=== PATIENT | female | born 1990 | race American Indian/Alaskan Native ===

== ENCOUNTER 2016-08-25 21:29 | Emergency (ER) | payer MEDICAID ==
[2016-08-25 22:06] VITALS: BP 109/91
[2016-08-25] MEDS ORDERED: methylPREDNISolone Sodium Succinate 125 MG/2 ML SDV IVPUSH ONE (22:12)
[2016-08-25] MEDS ORDERED: EPINEPHrine 1 MG/ML SDV SUBCUT ONE (22:14)
[2016-08-25] MEDS ORDERED: diphenhydrAMINE 50 MG/ML SDV IVPUSH ONE (22:15)
[2016-08-25] MEDS ORDERED: diphenhydrAMINE 25 MG Tab ONE (23:31)
[2016-08-25] MEDS ORDERED: predniSONE 20 MG Tab PO ONE (23:31)
[2016-08-25] MEDS ORDERED: predniSONE 20 MG Tab ONE (23:31)
[2016-08-25] MEDS ORDERED: diphenhydrAMINE 25 MG Tab PO ONE (23:31)
--- NOTE | 2016-08-25 23:36 | EDM.PDOC ---
ED HPI GENERAL MEDICAL PROBLEM - General Chief Complaint: Allergic Reaction Stated Complaint: BIT AND ALLEGIC REACTION, [id number] Time Seen by Provider: 08/25/16 22:05 Source of Information: Reports: Patient History Limitations: Reports: No Limitations - History of Present Illness INITIAL COMMENTS - FREE TEXT/NARRATIVE: c/o allergic reaction after [place] by [place] in [place], statedstarted with large hive to back of thigh, now itching all over, hands and face feel numb throat tight. 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 Neurological History: Reports: Migraines Psychiatric History: Reports: Depression Endocrine/Metabolic History: Reports: Other (See Below) Other Endocrine/Metabolic History: impaired glucose tolerance test Hematologic History: Reports: Anemia - Infectious Disease History Infectious Disease History: Reports: Chicken Pox - Past Surgical History GI Surgical History: Reports: Cholecystectomy Female Surgical History: Reports: Section, Tubal Ligation Social & Family History - Family History Family Medical History: Noncontributory Cardiac: Reports: Hypertension Neurological: Reports: Migraines Endocrine/Metabolic: Reports: Diabetes, type II - Tobacco Use Smoking Status *Q: Current Every Day Smoker Years of Tobacco use: 10 Packs/Tins Daily: 10 Used Tobacco, but Quit: No Second Hand Smoke Exposure: Yes - Caffeine Use Caffeine Use: Reports: Soda, Tea - Alcohol Use Days Per Week of Alcohol Use: 0 - Recreational Drug Use Recreational Drug Use: No - Living Situation & Occupation Living situation: Reports: with Significant Other, with Family Occupation: Unemployed ED ROS ALLERGIC REACTION - Review of Systems Review Of Systems: See Below HEENT: Reports: No Symptoms Respiratory: Reports: No Symptoms GI/Abdominal: Reports: No Symptoms Musculoskeletal: Reports: No Symptoms Skin: Reports: Pruritis (generlized greater left thigh), Rash, Erythema, Change in Color, Urticaria Neurological: Reports: No Symptoms Psychiatric: Reports: Anxiety ED EXAM GENERAL NO PERIP PULSE - Physical Exam Exam: See Below Exam Limited By: No Limitations General Appearance: Alert, No Apparent Distress Eye Exam: Bilateral Eye: PERRL Ears: Normal External Exam Nose: Normal Inspection Throat/Mouth: Normal Inspection Head: Atraumatic, Normocephalic Neck: Normal Inspection, Full Range of Motion. No: Lymphadenopathy (L), Lymphadenopathy (R) Respiratory/Chest: No Respiratory Distress, Lungs Clear, Normal Breath Sounds Cardiovascular: Normal Peripheral Pulses, Regular Rate, Rhythm, Tachycardia Extremities: Normal Range of Motion, Redness Neurological: Alert, Oriented, Normal Cognition Psychiatric: Anxious (hyperventilating on arrival) Skin Exam: Warm, Dry, Intact, Rash (8x12 uritcarial erythematous patch posterior left thigh few raised hives left buttock and waist line. ). No: Normal Color Course - Vital Signs Last Recorded V/S: Last Vital Signs Temp 98.8 F 08/25/16 21:59 Pulse 137 H 08/25/16 21:59 Resp 20 08/25/16 21:59 BP 109/91 H 08/25/16 21:59 Pulse Ox 100 08/25/16 21:59 - Orders/Labs/Meds Meds: Medications Discontinued Medications Generic Name Dose Route Start Last Admin Trade Name Yang PRN Reason Stop Dose Admin Diphenhydramine HCl 25 mg 08/25/16 22:15 08/25/16 22:36 Benadryl IVPUSH 08/25/16 22:16 25 mg ONETIME ONE Administration Diphenhydramine HCl Confirm 08/25/16 23:31 Benadryl Administered 08/25/16 23:32 Dose 50 mg .ROUTE .STK-MED ONE Epinephrine HCl 0.5 mg 08/25/16 22:14 08/25/16 22:36 Adrenalin 1:1000 SUBCUT 08/25/16 22:15 0.5 mg ONETIME ONE Administration Methylprednisolone Sodium Succinate 125 mg 08/25/16 22:12 08/25/16 22:36 Solu-Medrol IVPUSH 08/25/16 22:13 125 mg ONETIME ONE Administration Prednisone Confirm 08/25/16 23:31 Prednisone Administered 08/25/16 23:32 Dose 40 mg .ROUTE .STK-MED ONE - Re-Assessments/Exams Free Text/Narrative Re-Assessment/Exam: 08/28/16 03:49 symptoms and redness resolving with prednisone and benadryl Departure - Departure Time of Disposition: 23:31 Disposition: Home, Self-Care 01 Condition: Good Clinical Impression: Allergic reaction Qualifiers: Encounter type: initial encounter Qualified Code(s): T78.40XA - Allergy, unspecified, initial encounter Insect bite Qualifiers: Encounter type: initial encounter Qualified Code(s): W57.XXXA - Bitten or stung by nonvenomous insect and other nonvenomous arthropods, initial encounter - Discharge Information Referrals: Anabell Condon MD [Primary Care Provider] - Forms: ED Department Discharge Additional Instructions: prednisone 40mg at 3am then 20mg in am then 10mg for 3 days benadryl 50mg at 3am then 25-50mg every 4 hours as needed for itching follow up if any breathing difficulty cool pack to bite area
== END 2016-08-25 23:50 | disposition home or self-care (01) ==
LOC: DL.ED 21:29
DX: S70.362A Insect bite (nonvenomous), left thigh, initial encounter (principal); L50.0 Allergic urticaria; W57.XXXA Bitten or stung by nonvenomous insect and other nonvenomous arthropods, initial encounter; K21.9 Gastro-esophageal reflux disease without esophagitis; F32.9 Major depressive disorder, single episode, unspecified; G43.909 Migraine, unspecified, not intractable, without status migrainosus; D64.9 Anemia, unspecified; F17.210 Nicotine dependence, cigarettes, uncomplicated; Z90.49 Acquired absence of other specified parts of digestive tract
CPT/HCPCS: 96372; 96374; 96375; 99283; J0171; J1200; J2930; A9270-GY

== ENCOUNTER 2016-12-29 09:05 | Emergency (ER) | payer MEDICAID ==
[2016-12-29 09:16] VITALS: BP 123/72
--- NOTE | 2016-12-29 09:51 | EDM.PDOC ---
ED HPI GENERAL MEDICAL PROBLEM - General Chief Complaint: Respiratory Problem Stated Complaint: CHEST CONGESTION, HEAD HURST Time Seen by Provider: 12/29/16 09:40 Source of Information: Reports: Patient, RN, RN Notes Reviewed History Limitations: Reports: No Limitations - History of Present Illness INITIAL COMMENTS - FREE TEXT/NARRATIVE: Pt presents to ER with c/o cough, congestion, aches, and fever. She states the cough and congestion began approximately 4 days ago. She states the fever began yesterday. She admits to taking Tylenol and ibuprofen for fever and aches, Saline nasal mist, and Sudafed, but feels it is getting worse. Onset: Gradual Location: Reports: Head, Face Quality: Reports: Ache, Throbbing Severity: Moderate Improves with: Reports: None Head Pain Score (Numeric/FACES): 7 - Related Data Allergies Allergy/AdvReac Type Severity Reaction Status Date / Time No Known Allergies Allergy Verified 12/29/16 09:16 Home Meds: Home Meds Acetaminophen [Tylenol] 2 tab-cap PO Q4HR PRN 05/05/15 [History] Ibuprofen 4 tab PO Q8HR PRN 05/05/15 [History] Iron,Carbonyl/Vit C/Vit B12/Fa [Iron 100 Plus Tablet] 1 tab PO DAILY 12/29/16 [ History] Past Medical History - Past Health History Medical/Surgical History: Denies Medical/Surgical History HEENT History: Reports: None Cardiovascular History: Reports: None Respiratory History: Reports: None Gastrointestinal History: Reports: Cholelithiasis, GERD Other Gastrointestinal History: positive gallstones Genitourinary History: Reports: None 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: , 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 Musculoskeletal History: Reports: None Neurological History: Reports: Migraines Psychiatric History: Reports: Depression Endocrine/Metabolic History: Reports: Other (See Below) Other Endocrine/Metabolic History: impaired glucose tolerance test Hematologic History: Reports: Anemia Immunologic History: Reports: None Oncologic (Cancer) History: Reports: None Dermatologic History: Reports: None - Infectious Disease History Infectious Disease History: Reports: Chicken Pox - Past Surgical History Head Surgeries/Procedures: Reports: None GI Surgical History: Reports: Cholecystectomy Female Surgical History: Reports: Section, Tubal Ligation Social & Family History - Family History Family Medical History: Noncontributory Cardiac: Reports: Hypertension Neurological: Reports: Migraines Endocrine/Metabolic: Reports: Diabetes, type II - Tobacco Use Smoking Status *Q: Current Every Day Smoker Years of Tobacco use: 10 Packs/Tins Daily: 0.5 Used Tobacco, but Quit: No Second Hand Smoke Exposure: Yes - Caffeine Use Caffeine Use: Reports: Soda - Alcohol Use Days Per Week of Alcohol Use: 0 - Recreational Drug Use Recreational Drug Use: No - Living Situation & Occupation Living situation: Reports: with Significant Other, with Family Occupation: Unemployed ED ROS GENERAL - Review of Systems Review Of Systems: ROS reveals no pertinent complaints other than HPI. ED EXAM, GENERAL - Physical Exam Exam: See Below Exam Limited By: No Limitations General Appearance: Alert, WD/WN, No Apparent Distress Eye Exam: Bilateral Eye: Normal Inspection Ears: Normal External Exam, Hearing Grossly Normal Nose: Normal Inspection Throat/Mouth: Normal Inspection, Normal Oropharynx, Normal Voice, No Airway Compromise Head: Atraumatic, Normocephalic Neck: Normal Inspection, Supple, Non-Tender, Full Range of Motion Respiratory/Chest: No Respiratory Distress, Normal Breath Sounds, No Accessory Muscle Use, Chest Non-Tender, Rhonchi (bilateral) Cardiovascular: Normal Peripheral Pulses, Regular Rate, Rhythm, No Edema, No Gallop, No JVD, No Murmur, No Rub Peripheral Pulses: 2+: Radial (L), Radial (R) GI/Abdominal: Normal Bowel Sounds, Soft, Non-Tender (Female) Exam: Deferred Rectal (Female) Exam: Deferred Back Exam: Normal Inspection, Full Range of Motion Extremities: Normal Inspection, Normal Range of Motion, Non-Tender, No Pedal Edema, Normal Capillary Refill Neurological: Alert, Oriented, Normal Cognition, Normal Gait, No Motor/Sensory Deficits Psychiatric: Normal Affect, Normal Mood Skin Exam: Warm, Dry, Intact, Normal Color, No Rash Lymphatic: No Adenopathy Course - Vital Signs Last Recorded V/S: Last Vital Signs Temp 97.8 F 12/29/16 09:11 Pulse 66 12/29/16 09:11 Resp 16 12/29/16 09:11 BP 123/72 12/29/16 09:11 Pulse Ox 100 12/29/16 09:11 - Orders/Labs/Meds Orders: Active Orders 24 hr Category Date Time Status CULTURE STREP A CONFIRMATION [] Stat Lab 12/29/16 09:36 Results INFLUENZA A+B AG SCREEN [RM] Stat Lab 12/29/16 09:39 Uncollected STREP SCRN A RAPID W CULT CONF [RM] Stat Lab 12/29/16 09:36 Results Labs: Laboratory Tests 12/29/16 12/29/16 Range/Units 10:20 10:20 WBC 7.3 (5.0-10.0) 10^3/uL RBC 4.45 (4.2-5.4) 10^6/uL Hgb 10.1 L (12.0-16.0) g/dL Hct 33.8 L (37.0-47.0) % MCV 76.0 L D (80-100) fL MCH 22.7 L (27.0-34.0) pg MCHC 29.9 L (33.0-35.0) g/dL Plt Count 366 D (150-450) 10^3/uL Neut % (Auto) 35.3 L (42.2-75.2) % Lymph % (Auto) 50.3 H (20.5-50.1) % [place] % (Auto) 10.2 H (2-8) % Eos % (Auto) 3.6 H (1.0-3.0) % Baso % (Auto) 0.6 (0.0-1.0) % Sodium 138 (135-145) mmol/L Potassium 3.9 (3.6-5.0) mmol/L Chloride 106 (101-111) mmol/L Carbon Dioxide 25.0 (21.0-31.0) mmol/L Anion Gap 10.9 BUN 7 (7-18) mg/dL Creatinine 0.7 (0.6-1.3) mg/dL Est Cr Clr Drug Dosing 100.74 mL/min Estimated GFR (MDRD) > 60 BUN/Creatinine Ratio 10.00 Glucose 96 (74-105) mg/dL Calcium 8.6 (8.4-10.2) mg/dl Total Bilirubin 0.4 (0.2-1.0) mg/dL AST 15 (10-42) IU/L ALT 13 (10-60) IU/L Alkaline Phosphatase 81 (42-121) IU/L Total Protein 6.4 L (6.7-8.2) g/dl Albumin 3.5 (3.2-5.5) g/dl Globulin 2.9 Albumin/Globulin Ratio 1.21 Group A Strep: NEGATIVE Influenza A & B: NEGATIVE Departure - Departure Time of Disposition: 10:48 Disposition: Home, Self-Care 01 Clinical Impression: Sinusitis - Discharge Information Instructions: Sinusitis, Adult, [id number] Forms: ED Department Discharge Additional Instructions: RX: Flonase Tylenol and/or ibuprofen for headache and fever Continue using the Sudafed as directed Follow up with your primary care facility if no improvement in 1 week. - My Orders Last 24 Hours: My Active Orders 12/29/16 09:36 CULTURE STREP A CONFIRMATION [RM] Stat STREP SCRN A RAPID W CULT CONF [RM] Stat 12/29/16 09:39 INFLUENZA A+B AG SCREEN [RM] Stat - Assessment/Plan Last 24 Hours: My Active Orders 12/29/16 09:36 CULTURE STREP A CONFIRMATION [RM] Stat STREP SCRN A RAPID W CULT CONF [RM] Stat 12/29/16 09:39 INFLUENZA A+B AG SCREEN [] Stat
[2016-12-29 10:47] LABS: CHLORIDE,CL 106 mmol/L (101-111); SODIUM,NA 138 mmol/L (135-145)
== END 2016-12-29 10:51 | disposition home or self-care (01) ==
LOC: DL.ED 09:05 → EEVIPCON 09:05 → DL.ED 10:51
DX: J32.9 Chronic sinusitis, unspecified (principal); F17.210 Nicotine dependence, cigarettes, uncomplicated; Z86.2 Personal history of diseases of the blood and blood-forming organs and certain disorders involving the immune mechanism
CPT/HCPCS: 36415; 80053; 85025; 87081; 87430; 87804; 99283

== ENCOUNTER 2017-03-04 03:40 | Emergency (ER) | payer MEDICAID ==
[2017-03-04 03:53] VITALS: BP 134/85
[2017-03-04] MEDS ORDERED: Butorphanol 2 MG/ML SDV IM ONE (04:03)
[2017-03-04] MEDS ORDERED: Promethazine 25 MG/ML SDV IM ONE (04:03)
--- NOTE | 2017-03-04 04:08 | EDM.PDOC ---
ED HPI GENERAL MEDICAL PROBLEM - General Chief Complaint: Headache Stated Complaint: BAD HEADACHE [id number] Time Seen by Provider: 03/04/17 04:04 Source of Information: Reports: Patient History Limitations: Reports: No Limitations - History of Present Illness INITIAL COMMENTS - FREE TEXT/NARRATIVE: gives long h/o of migraines usually motrin works but not this time. onset yesterday. also both parents have these. see bright spots and light makes her eye ball throb. 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 Headache Pain Score (Numeric/FACES): 8 - Related Data Allergies Allergy/AdvReac Type Severity Reaction Status Date / Time No Known Allergies Allergy Verified 12/29/16 09:16 Home Meds: Home Meds Acetaminophen [Tylenol] 2 tab-cap PO Q4HR PRN 05/05/15 [History] Ibuprofen 4 tab PO Q8HR PRN 05/05/15 [History] Past Medical History - Past Health History Medical/Surgical History: Denies Medical/Surgical History HEENT History: Reports: None Cardiovascular History: Reports: None Respiratory History: Reports: None Gastrointestinal History: Reports: Cholelithiasis, GERD Other Gastrointestinal History: positive gallstones Genitourinary History: Reports: None 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: , 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 Musculoskeletal History: Reports: None Neurological History: Reports: Migraines Psychiatric History: Reports: Depression Endocrine/Metabolic History: Reports: Other (See Below) Other Endocrine/Metabolic History: impaired glucose tolerance test Hematologic History: Reports: Anemia Immunologic History: Reports: None Oncologic (Cancer) History: Reports: None Dermatologic History: Reports: None - Infectious Disease History Infectious Disease History: Reports: Chicken Pox - Past Surgical History Head Surgeries/Procedures: Reports: None GI Surgical History: Reports: Cholecystectomy Female Surgical History: Reports: Section, Tubal Ligation Social & Family History - Family History Family Medical History: Noncontributory Cardiac: Reports: Hypertension Neurological: Reports: Migraines Endocrine/Metabolic: Reports: Diabetes, type II - Tobacco Use Smoking Status *Q: Current Every Day Smoker Years of Tobacco use: 13 Packs/Tins Daily: 0.5 Used Tobacco, but Quit: No Second Hand Smoke Exposure: Yes - Caffeine Use Caffeine Use: Reports: Coffee, Soda - Alcohol Use Days Per Week of Alcohol Use: 0 - Recreational Drug Use Recreational Drug Use: No - Living Situation & Occupation Living situation: Reports: with Significant Other, with Family Occupation: Unemployed ED ROS GENERAL - Review of Systems Review Of Systems: ROS reveals no pertinent complaints other than HPI. - Physical Exam Exam: See Below Exam Limited By: No Limitations General Appearance: Alert, WD/WN, Mild Distress, Moderate Distress, Other ( tearful ) Eye Exam: Bilateral Eye: PERRL (pupils ess ER @ 4mm photophobic) Ears: Hearing Grossly Normal Throat/Mouth: Normal Voice, No Airway Compromise Head Exam: Atraumatic Neck: Non-Tender, Full Range of Motion Respiratory/Chest: No Respiratory Distress Cardiovascular: Regular Rate, Rhythm GI/Abdominal: Soft, Non-Tender Neuro Exam (Abbreviated): Alert, Oriented, Normal Cognition, Normal Gait, No Motor/Sensory Deficits Psychiatric: Tearful Skin Exam: Warm, Dry, Normal Color Course - Vital Signs Last Recorded V/S: Last Vital Signs Temp 36.7 C 03/04/17 03:52 Pulse 70 03/04/17 03:52 Resp 16 03/04/17 03:52 BP 134/85 03/04/17 03:52 Pulse Ox 100 03/04/17 03:52 - Orders/Labs/Meds Meds: Medications Discontinued Medications Generic Name Dose Route Start Last Admin Trade Name Freq PRN Reason Stop Dose Admin Butorphanol Tartrate 2 mg 03/04/17 04:03 03/04/17 04:12 Stadol IM 03/04/17 04:04 2 mg ONETIME ONE Administration Promethazine HCl 25 mg 03/04/17 04:03 03/04/17 04:13 Phenergan IM 03/04/17 04:04 25 mg ONETIME ONE Administration Departure - Departure Time of Disposition: 04:35 Disposition: Home, Self-Care 01 Condition: Good Clinical Impression: Migraine - Discharge Information Instructions: Recurrent Migraine Headache, [id number] Referrals: PCP,None [Ordering Only Provider] - Forms: ED Department Discharge Additional Instructions: 1) rest as much as possible 2) follow up at clinic or recheck as needed
== END 2017-03-04 04:39 | disposition home or self-care (01) ==
LOC: DL.ED 03:40
DX: G43.909 Migraine, unspecified, not intractable, without status migrainosus (principal); F17.210 Nicotine dependence, cigarettes, uncomplicated
CPT/HCPCS: 96372; 99283; J0595; J2550

== ENCOUNTER 2017-05-29 00:03 | Emergency (ER) | payer SELFPAY ==
[2017-05-29 00:12] VITALS: BP 129/88
[2017-05-29] MEDS ORDERED: Ketorolac 30 MG/ML SDV IVPUSH ONE (00:43)
[2017-05-29] MEDS ORDERED: Sodium Chloride 0.9% 10 ML Syringe FLUSH PRN (00:43)
[2017-05-29] MEDS ORDERED: Sodium Chloride 0.9% 1,000 ML IV ONE (00:43)
[2017-05-29] MEDS ORDERED: Ondansetron 4 MG/2 ML SDV IV ONE ×2 (00:43→01:55)
[2017-05-29 00:55] LABS: CHLORIDE,CL 105 mmol/L (101-111); SODIUM,NA 137 mmol/L (135-145)
--- NOTE | 2017-05-29 01:54 | EDM.PDOC ---
ED HPI GENERAL MEDICAL PROBLEM - General Chief Complaint: Headache Stated Complaint: HEADACHE [id number] Time Seen by Provider: 05/29/17 00:30 Source of Information: Reports: Patient, RN, RN Notes Reviewed History Limitations: Reports: No Limitations - History of Present Illness INITIAL COMMENTS - FREE TEXT/NARRATIVE: Pt presents to the ER with c/o migraine headache that has been present for 4 days. She states normally she is able to take Tylenol and Ibuprofen and the pain will subside, but this headache the meds have not helped. She states she has a "migraine medication" prescribed by her PCP, but it makes her sleepy and she needs to work and take care of her small children. Patient admits to nausea and "white spots" in her vision with this headache. 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 Headache Pain Score (Numeric/FACES): 8 - Related Data Allergies Allergy/AdvReac Type Severity Reaction Status Date / Time No Known Allergies Allergy Verified 05/29/17 00:08 Home Meds: Home Meds Acetaminophen [Tylenol] 2 tab-cap PO Q4HR PRN 05/05/15 [History] Ibuprofen 4 tab PO Q8HR PRN 05/05/15 [History] Past Medical History - Past Health History Medical/Surgical History: Denies Medical/Surgical History HEENT History: Reports: None Cardiovascular History: Reports: None Respiratory History: Reports: None Gastrointestinal History: Reports: Cholelithiasis, GERD Other Gastrointestinal History: positive gallstones Genitourinary History: Reports: None 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: , 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 Musculoskeletal History: Reports: None Neurological History: Reports: Migraines Psychiatric History: Reports: Depression Endocrine/Metabolic History: Reports: Other (See Below) Other Endocrine/Metabolic History: impaired glucose tolerance test Hematologic History: Reports: Anemia Immunologic History: Reports: None Oncologic (Cancer) History: Reports: None Dermatologic History: Reports: None - Infectious Disease History Infectious Disease History: Reports: Chicken Pox - Past Surgical History Head Surgeries/Procedures: Reports: None GI Surgical History: Reports: Cholecystectomy Female Surgical History: Reports: Section, Tubal Ligation Social & Family History - Family History Family Medical History: Noncontributory Cardiac: Reports: Hypertension Neurological: Reports: Migraines Endocrine/Metabolic: Reports: Diabetes, type II - Tobacco Use Smoking Status *Q: Current Every Day Smoker Years of Tobacco use: 12 Packs/Tins Daily: 0.2 Used Tobacco, but Quit: No Second Hand Smoke Exposure: Yes - Caffeine Use Caffeine Use: Reports: Soda - Alcohol Use Days Per Week of Alcohol Use: 0 - Recreational Drug Use Recreational Drug Use: No - Living Situation & Occupation Living situation: Reports: with Significant Other, with Family Occupation: Unemployed ED ROS GENERAL - Review of Systems Review Of Systems: ROS reveals no pertinent complaints other than HPI. ED EXAM, HEAD INJURY - Physical Exam Exam: See Below Exam Limited By: No Limitations General Appearance: Alert, WD/WN, Mild Distress Head: Atraumatic, Normocephalic Nexus Criteria: No: Posterior, Midline Cervical Tenderness, Evidence of Intoxication, Altered Level of Consciousness, Focal Neurological Deficit, Painful Distraction Injuries Eyes: Bilateral Eye: EOMI, Normal Inspection, PERRL Ears: Normal External Exam, Hearing Grossly Normal Nose: Normal Inspection Throat/Mouth: Normal Inspection, Normal Voice, No Airway Compromise Neck: Non-Tender, Full Range of Motion, Normal Alignment, Normal Inspection Respiratory: No Respiratory Distress, Lungs Clear, Normal Breath Sounds, No Accessory Muscle Use, Chest Non-Tender Cardiovascular: Normal Peripheral Pulses, Regular Rate, Rhythm, No Edema, No Gallop, No JVD, No Murmur, No Rub GI/Abdominal Exam: Normal Bowel Sounds, Soft, Non-Tender, No Organomegaly, No Distention, No Abnormal Bruit, No Mass (Female) Exam: Deferred Rectal (Female) Exam: Deferred Back Exam: Full Range of Motion, Normal Inspection, NT Extremities: Normal Inspection, Normal Range of Motion, Non-Tender, No Pedal Edema, Normal Capillary Refill 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 DIRECTED Care 05/29/17 00:44 Active UA W/MICROSCOPIC [URIN] Stat Lab 05/29/17 00:18 Ordered Sodium Chloride 0.9% [Saline Flush] Med 05/29/17 00:43 Active 10 ml FLUSH ASDIRECTED PRN Peripheral IV Insertion Adult [OM.PC] Stat Oth 05/29/17 00:43 Ordered Medication Orders Sodium Chloride (Saline Flush) 10 ml FLUSH ASDIRECTED PRN PRN Reason: Keep Vein Open Last Admin: 05/29/17 01:09 Dose: 10 ml Labs: Laboratory Tests 05/29/17 05/29/17 Range/Units 00:30 00:30 WBC 13.7 H (5.0-10.0) 10^3/uL RBC 4.24 (4.2-5.4) 10^6/uL Hgb 10.0 L (12.0-16.0) g/dL Hct 32.7 L (37.0-47.0) % MCV 77.1 L (80-100) fL MCH 23.6 L (27.0-34.0) pg MCHC 30.6 L (33.0-35.0) g/dL Plt Count 424 (150-450) 10^3/uL Neut % (Auto) 45.3 (42.2-75.2) % Lymph % (Auto) 45.4 (20.5-50.1) % King % (Auto) 6.9 (2-8) % Eos % (Auto) 2.0 (1.0-3.0) % Baso % (Auto) 0.4 (0.0-1.0) % Sodium 137 (135-145) mmol/L Potassium 3.6 (3.6-5.0) mmol/L Chloride 105 (101-111) mmol/L Carbon Dioxide 25.0 (21.0-31.0) mmol/L Anion Gap 10.6 BUN 10 (7-18) mg/dL Creatinine 0.7 (0.6-1.3) mg/dL Est Cr Clr Drug Dosing 99.86 mL/min Estimated GFR (MDRD) > 60 BUN/Creatinine Ratio 14.28 Glucose 102 (74-105) mg/dL Calcium 8.6 (8.4-10.2) mg/dl Total Bilirubin 0.2 (0.2-1.0) mg/dL AST 17 (10-42) IU/L ALT 12 (10-60) IU/L Alkaline Phosphatase 80 (42-121) IU/L Total Protein 6.7 (6.7-8.2) g/dl Albumin 3.7 (3.2-5.5) g/dl Globulin 3.0 Albumin/Globulin Ratio 1.23 Meds: Medications Generic Name Dose Route Start Last Admin Trade Name Freq PRN Reason Stop Dose Admin Sodium Chloride 10 ml 05/29/17 00:43 05/29/17 01:09 Saline Flush FLUSH 10 ml ASDIRECTED PRN Administration Keep Vein Open Discontinued Medications Generic Name Dose Route Start Last Admin Trade Name Freq PRN Reason Stop Dose Admin Hydromorphone HCl 0.5 mg 05/29/17 01:55 05/29/17 02:05 Dilaudid IVPUSH 05/29/17 01:56 0.5 mg ONETIME ONE Administration Sodium Chloride 1,000 mls @ 999 mls/hr 05/29/17 00:43 05/29/17 00:53 Normal Saline IV 05/29/17 01:43 999 mls/hr .BOLUS ONE Administration Ketorolac Tromethamine 30 mg 05/29/17 00:43 05/29/17 00:57 Toradol IVPUSH 05/29/17 00:44 30 mg ONETIME ONE Administration Ondansetron HCl 4 mg 05/29/17 00:43 05/29/17 00:56 Zofran IV 05/29/17 00:44 4 mg ONETIME ONE Administration Ondansetron HCl 4 mg 05/29/17 01:55 05/29/17 02:06 Zofran IV 05/29/17 01:56 4 mg ONETIME ONE Administration - Re-Assessments/Exams Free Text/Narrative Re-Assessment/Exam: 05/29/17 01:58 This chart was not meant to be a "Head injury" chart, but a "headache". Departure - Departure Time of Disposition: 02:20 Disposition: Home, Self-Care 01 Condition: Fair Clinical Impression: Migraine - Discharge Information Instructions: Migraine Headache, [id number] Forms: ED Department Discharge Additional Instructions: Drink plenty of fluids Tylenol and/or ibuprofen for pain Follow up with your primary care facility - My Orders Last 24 Hours: My Active Orders 05/29/17 00:18 UA W/MICROSCOPIC [URIN] Stat 05/29/17 00:43 Sodium Chloride 0.9% [Saline Flush] 10 ml FLUSH ASDIRECTED PRN Peripheral IV Insertion Adult [OM.PC] Stat 05/29/17 00:44 Peripheral IV Care [RC] . DIRECTED - Assessment/Plan Last 24 Hours: My Active Orders 05/29/17 00:18 UA W/MICROSCOPIC [URIN] Stat 05/29/17 00:43 Sodium Chloride 0.9% [Saline Flush] 10 ml FLUSH ASDIRECTED PRN Peripheral IV Insertion Adult [OM.PC] Stat 05/29/17 00:44 Peripheral IV Care [RC] . DIRECTED
[2017-05-29] MEDS ORDERED: HYDROmorphone 0.5 MG/0.5 ML Syringe IVPUSH ONE (01:55)
== END 2017-05-29 02:26 | disposition home or self-care (01) ==
LOC: DL.ED 00:03
DX: G43.909 Migraine, unspecified, not intractable, without status migrainosus (principal); F17.210 Nicotine dependence, cigarettes, uncomplicated
CPT/HCPCS: 36415; 80053; 85025; 96361; 96374; 96375; 96376; 99283; J1170; J1885; J2405; J7030; J7050

== ENCOUNTER 2017-06-09 22:52 | Emergency (ER) | payer MEDICAID ==
[2017-06-09 23:13] VITALS: BP 123/85
[2017-06-09] MEDS ORDERED: Ketorolac 30 MG/ML SDV IM ONE (23:36)
--- NOTE | 2017-06-09 23:41 | EDM.PDOC ---
ED HPI GENERAL MEDICAL PROBLEM - General Chief Complaint: Back Pain or Injury Stated Complaint: PAIN IN FOOT INTO BACK [id number] Time Seen by Provider: 06/09/17 23:37 Source of Information: Reports: Patient History Limitations: Reports: No Limitations - History of Present Illness INITIAL COMMENTS - FREE TEXT/NARRATIVE: sudden onset right hip area pain at work with shooting pain. Right Hip Pain Score (Numeric/FACES): 8 - Related Data Allergies Allergy/AdvReac Type Severity Reaction Status Date / Time No Known Allergies Allergy Verified 06/09/17 23:16 Home Meds: Home Meds Acetaminophen [Tylenol] 3 tab-cap PO Q4HR PRN 05/05/15 [History] Ibuprofen 4 tab PO Q8HR PRN 05/05/15 [History] Past Medical History - Past Health History Medical/Surgical History: Denies Medical/Surgical History HEENT History: Reports: None Cardiovascular History: Reports: None Respiratory History: Reports: None Gastrointestinal History: Reports: Cholelithiasis, GERD Other Gastrointestinal History: positive gallstones Genitourinary History: Reports: None 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: , 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 Musculoskeletal History: Reports: None Neurological History: Reports: Migraines Psychiatric History: Reports: Depression Endocrine/Metabolic History: Reports: Other (See Below) Other Endocrine/Metabolic History: impaired glucose tolerance test Hematologic History: Reports: Anemia Immunologic History: Reports: None Oncologic (Cancer) History: Reports: None Dermatologic History: Reports: None - Infectious Disease History Infectious Disease History: Reports: Chicken Pox - Past Surgical History Head Surgeries/Procedures: Reports: None GI Surgical History: Reports: Cholecystectomy Female Surgical History: Reports: Section, Tubal Ligation Social & Family History - Family History Family Medical History: Noncontributory Cardiac: Reports: Hypertension Neurological: Reports: Migraines Endocrine/Metabolic: Reports: Diabetes, type II - Tobacco Use Smoking Status *Q: Current Every Day Smoker Years of Tobacco use: 12 Packs/Tins Daily: 0.2 Used Tobacco, but Quit: No Second Hand Smoke Exposure: Yes - Caffeine Use Caffeine Use: Reports: Soda - Alcohol Use Days Per Week of Alcohol Use: 0 - Recreational Drug Use Recreational Drug Use: No - Living Situation & Occupation Living situation: Reports: with Significant Other, with Family Occupation: Unemployed ED ROS GENERAL - Review of Systems Review Of Systems: ROS reveals no pertinent complaints other than HPI. ED EXAM,LOWER BACK PAIN/INJURY - Physical Exam Exam: See Below Exam Limited By: No Limitations General Appearance: Alert, WD/WN, Mild Distress, Other (pain) Ears: Hearing Grossly Normal Throat/Mouth: Normal Voice, No Airway Compromise Head: Atraumatic Neck: Non-Tender, Full Range of Motion Respiratory/Chest: No Respiratory Distress Cardiovascular: Regular Rate, Rhythm GI/Abdominal: Soft, Non-Tender Back Exam: Vertebral Tenderness, Other (right hip tender R/P with radiculitis, gait limited to pain) Neurological: Alert, No Motor/Sensory Deficits, Oriented x 3 Psychiatric: Tearful Skin Exam: Warm, Dry, Normal Color Lymphatic: No Adenopathy Course - Vital Signs Last Recorded V/S: Last Vital Signs Temp 37.0 C 06/09/17 22:58 Pulse 82 06/09/17 22:58 Resp 17 06/09/17 22:58 BP 123/85 06/09/17 22:58 Pulse Ox 100 06/09/17 22:58 - Orders/Labs/Meds Meds: Medications Discontinued Medications Generic Name Dose Route Start Last Admin Trade Name Yang PRN Reason Stop Dose Admin Butorphanol Tartrate 2 mg 06/10/17 01:12 06/10/17 01:19 Stadol IM 06/10/17 01:13 2 mg ONETIME ONE Administration Ketorolac Tromethamine 30 mg 06/09/17 23:36 06/09/17 23:46 Toradol IM 06/09/17 23:37 30 mg ONETIME ONE Administration Promethazine HCl 25 mg 06/10/17 01:12 06/10/17 01:19 Phenergan IM 06/10/17 01:13 25 mg ONETIME ONE Administration Departure - Departure Time of Disposition: 01:20 Disposition: Home, Self-Care 01 Condition: Good Clinical Impression: Lumbosacral radiculitis - Discharge Information Instructions: Back Pain, Adult, [id number] Referrals: PCP,None [Primary Care Provider] - Forms: ED Department Discharge Additional Instructions: 1) rest and avoid bending lifting straining next 48 hours 2) try ice or heat to sore areas 3) follow up at clinic
[2017-06-10] MEDS ORDERED: Promethazine 25 MG/ML SDV IM ONE (01:12)
[2017-06-10] MEDS ORDERED: Butorphanol 2 MG/ML SDV IM ONE (01:12)
== END 2017-06-10 01:26 | disposition home or self-care (01) ==
LOC: DL.ED 22:52
DX: M54.17 Radiculopathy, lumbosacral region (principal); F17.210 Nicotine dependence, cigarettes, uncomplicated
CPT/HCPCS: 72192; 96372; 99283; J0595; J1885; J2550

== ENCOUNTER 2017-06-10 17:21 | Emergency (ER) | payer SELFPAY | END 2017-06-10 17:56 | disposition left against medical advice (07) | LOC: DL.ED 17:21 | DX: Z53.21 Procedure and treatment not carried out due to patient leaving prior to being seen by health care provider (principal) ==

== ENCOUNTER 2017-06-11 15:41 | Emergency (ER) | payer SELFPAY ==
[2017-06-11 15:49] VITALS: BP 127/79
--- NOTE | 2017-06-11 15:59 | EDM.PDOC ---
ED HPI GENERAL MEDICAL PROBLEM - General Chief Complaint: Lower Extremity Injury/Pain Stated Complaint: [id number] RT FOOT SHOOTING PAIN Time Seen by Provider: 06/11/17 15:55 Source of Information: Reports: Patient History Limitations: Reports: No Limitations - History of Present Illness INITIAL COMMENTS - FREE TEXT/NARRATIVE: This 26 yo female patient reports to the ED with continued lower back pain that shoots into her right hip. The patient reports her symptoms started on 06/07/17 and have continued since that time. The patient was seen in the ED after the symptoms started, but continues to have symptoms. The patient attempted to get into the Clinic, but her primary care provider did not have any openings. The patient reports she has been having increased symptoms and has been having increased symptoms with movement. The patient reports she has been taking ibuprofen and Tylenol with no symptom relief. 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 - Related Data Allergies Allergy/AdvReac Type Severity Reaction Status Date / Time No Known Allergies Allergy Verified 06/09/17 23:16 Home Meds: Home Meds Acetaminophen [Tylenol] 3 tab-cap PO Q4HR PRN 05/05/15 [History] Ibuprofen 4 tab PO Q8HR PRN 05/05/15 [History] Past Medical History - Past Health History Medical/Surgical History: Denies Medical/Surgical History HEENT History: Reports: None Cardiovascular History: Reports: None Respiratory History: Reports: None Gastrointestinal History: Reports: Cholelithiasis, GERD Other Gastrointestinal History: positive gallstones Genitourinary History: Reports: None 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: , 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 Musculoskeletal History: Reports: None Neurological History: Reports: Migraines Psychiatric History: Reports: Depression Endocrine/Metabolic History: Reports: Other (See Below) Other Endocrine/Metabolic History: impaired glucose tolerance test Hematologic History: Reports: Anemia Immunologic History: Reports: None Oncologic (Cancer) History: Reports: None Dermatologic History: Reports: None - Infectious Disease History Infectious Disease History: Reports: Chicken Pox - Past Surgical History Head Surgeries/Procedures: Reports: None GI Surgical History: Reports: Cholecystectomy Female Surgical History: Reports: Section, Tubal Ligation Social & Family History - Family History Family Medical History: Noncontributory Cardiac: Reports: Hypertension Neurological: Reports: Migraines Endocrine/Metabolic: Reports: Diabetes, type II - Tobacco Use Smoking Status *Q: Current Every Day Smoker Years of Tobacco use: 12 Packs/Tins Daily: 0.2 Used Tobacco, but Quit: No Second Hand Smoke Exposure: Yes - Caffeine Use Caffeine Use: Reports: Soda - Alcohol Use Days Per Week of Alcohol Use: 0 - Recreational Drug Use Recreational Drug Use: No - Living Situation & Occupation Living situation: Reports: with Significant Other, with Family Occupation: Unemployed Review of Systems - Review of Systems Review Of Systems: ROS reveals no pertinent complaints other than HPI. ED EXAM, GENERAL - Physical Exam Exam: See Below Exam Limited By: No Limitations General Appearance: Alert, WD/WN, Moderate Distress Eye Exam: Bilateral Eye: EOMI, Normal Inspection, PERRL Ears: Normal External Exam, Normal Canal, Hearing Grossly Normal, Normal TMs Nose: Normal Inspection, Normal Mucosa, No Blood Throat/Mouth: Normal Inspection, Normal Lips, Normal Teeth, Normal Gums, Normal Oropharynx, Normal Voice, No Airway Compromise Head: Atraumatic, Normocephalic Neck: Normal Inspection, Supple, Non-Tender, Full Range of Motion Respiratory/Chest: No Respiratory Distress, Lungs Clear, Normal Breath Sounds, No Accessory Muscle Use, Chest Non-Tender Cardiovascular: Normal Peripheral Pulses, Regular Rate, Rhythm, No Edema, No Gallop, No JVD, No Murmur, No Rub (Female) Exam: Deferred Rectal (Female) Exam: Deferred Back Exam: Paraspinal Tenderness (right sided), Vertebral Tenderness (lower back ) Extremities: Limited Range of Motion (due to sciatica to right hip and leg) Neurological: Alert, Oriented, CN II-XII Intact, Normal Cognition, Normal Gait, Normal Reflexes, No Motor/Sensory Deficits Psychiatric: Normal Affect, Normal Mood Skin Exam: Warm, Dry, Intact, Normal Color, No Rash Lymphatic: No Adenopathy Course - Vital Signs Last Recorded V/S: Last Vital Signs Temp 37.3 C 06/11/17 15:48 Pulse 89 06/11/17 15:48 Resp 18 06/11/17 15:48 BP 127/79 06/11/17 15:48 Pulse Ox 100 06/11/17 15:48 - Orders/Labs/Meds Meds: Medications Discontinued Medications Generic Name Dose Route Start Last Admin Trade Name Yang PRN Reason Stop Dose Admin Methylprednisolone Sodium Succinate 125 mg 06/11/17 16:06 06/11/17 16:12 Solu-Medrol IM 06/11/17 16:07 125 mg ONETIME ONE Administration Departure - Departure Time of Disposition: 16:15 Disposition: Home, Self-Care 01 Condition: Fair Clinical Impression: Low back pain with right-sided sciatica Qualifiers: Chronicity: acute Back pain laterality: right Qualified Code(s): M54.41 - Lumbago with sciatica, right side - Discharge Information Instructions: Sciatica, [id number], Back Pain, Adult, [id number] Referrals: Anabell Condon MD [Primary Care Provider] - Forms: ED Department Discharge Care Plan Goals: The patient was advised of the examination results during the visit. The patient was given an injection of SoluMedrol (125 mg) while in the ED. The patient was discharged with scripts for 1) Prednisone (20 mg) #10 to take 2 by mouth daily for 5 days, 2) Flexeril (10 mg) #10 to take 1 by mouth at bedtime as needed and 3) [place] (10/325) #8 to take 1 by mouth every 6 hours as needed for pain. The patient was encouraged to establish an appointment with her primary care facility for continued evaluation (MRI/PT) and treatment. If the patient has any additional symptoms or concerns, the patient should either visit her primary care facility or return to the emergency department.
[2017-06-11] MEDS ORDERED: methylPREDNISolone Sodium Succinate 125 MG/2 ML SDV IM ONE (16:06)
== END 2017-06-11 16:26 | disposition home or self-care (01) ==
LOC: DL.ED 15:41
DX: M54.41 Lumbago with sciatica, right side (principal); F17.210 Nicotine dependence, cigarettes, uncomplicated
CPT/HCPCS: 96372; 99283; J2930

== ENCOUNTER 2017-06-24 14:28 | Emergency (ER) | payer OTHER, MEDICAID ==
[2017-06-24] MEDS ORDERED: Cyclobenzaprine 10 MG Tab PO ONE (15:50)
[2017-06-24] MEDS ORDERED: Ibuprofen 600 MG Tab PO ONE (15:51)
[2017-06-24] MEDS ORDERED: Acetaminophen/HYDROcodone 325-10 MG Tab PO ONE (15:51)
[2017-06-24 16:00] VITALS: BP 109/74
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
== END 2017-06-24 17:14 | disposition home or self-care (01) ==
LOC: DL.ED 14:28
DX: S16.1XXA Strain of muscle, fascia and tendon at neck level, initial encounter (principal); V53.5XXA Driver of pick-up truck or van injured in collision with car, pick-up truck or van in traffic accident, initial encounter
CPT/HCPCS: 72125; 99284; A9270

== ENCOUNTER 2017-06-25 22:17 | Emergency (ER) | payer MEDICAID, OTHER ==
[2017-06-26] MEDS ORDERED: Acetaminophen/HYDROcodone 325-10 MG Tab PO ONE (01:25)
== END 2017-06-26 01:45 | disposition home or self-care (01) ==
LOC: DL.ED 22:17
DX: S16.1XXA Strain of muscle, fascia and tendon at neck level, initial encounter (principal); V49.40XA Driver injured in collision with unspecified motor vehicles in traffic accident, initial encounter
CPT/HCPCS: 96372; 99283; A9270-GY; J2360

== ENCOUNTER 2017-07-30 01:48 | Emergency (ER) | payer MEDICAID ==
[2017-07-30] MEDS ORDERED: Sodium Chloride 0.9% 1,000 ML IV ONE (02:24)
[2017-07-30 02:26] VITALS: BP 117/79
[2017-07-30] MEDS ORDERED: Ondansetron 4 MG/2 ML SDV IV ONE (02:30)
[2017-07-30] MEDS ORDERED: Ketorolac 30 MG/ML SDV IVPUSH ONE (02:30)
--- NOTE | 2017-07-30 02:36 | EDM.PDOC ---
ED HPI GENERAL MEDICAL PROBLEM - General Chief Complaint: Headache Stated Complaint: HEADACHE, IRON LOW [id number] Time Seen by Provider: 07/30/17 02:25 Source of Information: Reports: Patient History Limitations: Reports: No Limitations - History of Present Illness INITIAL COMMENTS - FREE TEXT/NARRATIVE: This 26 yo female patient reports to the ED with a 3 day history of a headache. The patient reports her headache is in the left side of her head and it feels like her left eye is going to "pop" out. The patient reports the headache got much worse tonight. The patient reports she is unable to sleep due to the pain. The patient reports she is supposed to see the neurologist in the future due to her frequent migraine headaches. The patient also reports that she was seen in the clinic on Sunday of last week and started on iron pills. The patient reports she has not been able to take the iron due to it giving her an upset stomach. 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 Headache Pain Score (Numeric/FACES): 8 - Related Data Allergies Allergy/AdvReac Type Severity Reaction Status Date / Time No Known Allergies Allergy Verified 06/24/17 15:09 Home Meds: Home Meds Acetaminophen [Tylenol] 3 tab-cap PO Q4HR PRN 05/05/15 [History] Ibuprofen 4 tab PO Q8HR PRN 05/05/15 [History] Past Medical History - Past Health History Medical/Surgical History: Denies Medical/Surgical History HEENT History: Reports: None Cardiovascular History: Reports: None Respiratory History: Reports: None Gastrointestinal History: Reports: Cholelithiasis, GERD Other Gastrointestinal History: positive gallstones Genitourinary History: Reports: None 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 Musculoskeletal History: Reports: None Neurological History: Reports: Migraines Psychiatric History: Reports: Depression Endocrine/Metabolic History: Reports: Other (See Below) Other Endocrine/Metabolic History: impaired glucose tolerance test Hematologic History: Reports: Anemia Immunologic History: Reports: None Oncologic (Cancer) History: Reports: None Dermatologic History: Reports: None - Infectious Disease History Infectious Disease History: Reports: Chicken Pox - Past Surgical History Head Surgeries/Procedures: Reports: None GI Surgical History: Reports: Cholecystectomy Female Surgical History: Reports: Section, Tubal Ligation Social & Family History - Family History Family Medical History: Noncontributory Cardiac: Reports: Hypertension Neurological: Reports: Migraines Endocrine/Metabolic: Reports: Diabetes, type II - Caffeine Use Caffeine Use: Reports: Soda - Living Situation & Occupation Living situation: Reports: with Significant Other, with Family Occupation: Unemployed ED ROS GENERAL - Review of Systems Review Of Systems: ROS reveals no pertinent complaints other than HPI. - Physical Exam Exam: See Below Exam Limited By: No Limitations General Appearance: Alert, WD/WN, Moderate Distress, Obese Eye Exam: Bilateral Eye: EOMI, Normal Inspection, PERRL Ears: Normal External Exam, Normal Canal, Hearing Grossly Normal, Normal TMs Nose: Normal Inspection, Normal Mucosa, No Blood Throat/Mouth: Normal Inspection, Normal Lips, Normal Teeth, Normal Gums, Normal Oropharynx, Normal Voice, No Airway Compromise Head Exam: Atraumatic, Normocephalic Neck: Normal Inspection, Supple, Non-Tender, Full Range of Motion Respiratory/Chest: No Respiratory Distress, Lungs Clear, Normal Breath Sounds, No Accessory Muscle Use, Chest Non-Tender Cardiovascular: Normal Peripheral Pulses, Regular Rate, Rhythm, No Edema, No Gallop, No JVD, No Murmur, No Rub GI/Abdominal: Normal Bowel Sounds, Soft, Non-Tender, No Organomegaly, No Distention, No Abnormal Bruit, No Mass (Female) Exam: Deferred Rectal (Female) Exam: Deferred Neuro Exam (Abbreviated): Alert, Oriented, CN II-XII Intact, Normal Cognition Back Exam: Normal Inspection, Full Range of Motion, NT Extremities: Normal Inspection, Normal Range of Motion, Non-Tender, No Pedal Edema, Normal Capillary Refill Psychiatric: Normal Affect, Normal Mood Skin Exam: Warm, Dry, Intact, Normal Color, No Rash Course - Vital Signs Last Recorded V/S: Last Vital Signs Temp 37.1 C 07/30/17 02:24 Pulse 70 07/30/17 02:24 Resp 20 07/30/17 02:24 BP 117/79 07/30/17 02:24 Pulse Ox 100 07/30/17 02:24 - Orders/Labs/Meds Orders: Active Orders 24 hr Category Date Time Status DRUG SCREEN URINE BIORAD [URCHEM] Stat Lab 07/30/17 03:26 Ordered UA W/MICROSCOPIC [URIN] Stat Lab 07/30/17 03:26 Received Labs: Laboratory Tests 07/30/17 07/30/17 07/30/17 Range/Units 02:34 02:34 03:26 WBC 19.5 H (5.0-10.0) 10^3/uL RBC 4.34 (4.2-5.4) 10^6/uL Hgb 10.2 L (12.0-16.0) g/dL Hct 33.2 L (37.0-47.0) % MCV 76.5 L (80-100) fL MCH 23.5 L (27.0-34.0) pg MCHC 30.7 L (33.0-35.0) g/dL Plt Count 384 (150-450) 10^3/uL Neut % (Auto) 48.0 (42.2-75.2) % Lymph % (Auto) 42.2 (20.5-50.1) % [place] % (Auto) 7.9 (2-8) % Eos % (Auto) 1.5 (1.0-3.0) % Baso % (Auto) 0.4 (0.0-1.0) % Sodium 138 (135-145) mmol/L Potassium 3.5 L (3.6-5.0) mmol/L Chloride 107 (101-111) mmol/L Carbon Dioxide 25.0 (21.0-31.0) mmol/L Anion Gap 9.5 BUN 9 (7-18) mg/dL Creatinine 0.7 (0.6-1.3) mg/dL Est Cr Clr Drug Dosing 99.86 mL/min Estimated GFR (MDRD) > 60 BUN/Creatinine Ratio 12.85 Glucose 81 (74-105) mg/dL Calcium 8.6 (8.4-10.2) mg/dl Total Bilirubin 0.3 (0.2-1.0) mg/dL AST 18 (10-42) IU/L ALT 14 (10-60) IU/L Alkaline Phosphatase 81 (42-121) IU/L Total Protein 6.8 (6.7-8.2) g/dl Albumin 3.8 (3.2-5.5) g/dl Globulin 3.0 Albumin/Globulin Ratio 1.27 Urine Color Yellow (YELLOW) Urine Appearance Slightly cloudy (CLEAR) Urine pH 6.5 (5.0-9.0) Ur Specific [place] 1.020 (1.005-1.030) Urine Protein Negative (NEGATIVE) Urine Glucose (UA) Negative (NEGATIVE) Urine Ketones Negative (NEGATIVE) Urine Occult Blood Negative (NEGATIVE) Urine Nitrite Negative (NEGATIVE) Urine Bilirubin Negative (NEGATIVE) Urine Urobilinogen 2.0 H (0.2-1.0) mg/dL Ur Leukocyte Esterase Negative (NEGATIVE) Urine RBC 0-5 /HPF Urine WBC 0-5 (0-5/HPF) /HPF Ur Epithelial Cells Many H /HPF Urine Bacteria Moderate H (0-FEW/HPF) /HPF Urine Opiates Screen (NEGATIVE) Ur Oxycodone Screen (NEGATIVE) Urine Methadone Screen (NEGATIVE) Ur Barbiturates Screen (NEGATIVE) U Tricyclic Antidepress (NEGATIVE) Ur Phencyclidine Scrn (NEGATIVE) Ur Amphetamine Screen (NEGATIVE) U Methamphetamines Scrn (NEGATIVE) Urine MDMA Screen (NEGATIVE) U Benzodiazepines Scrn (NEGATIVE) Urine Cocaine Screen (NEGATIVE) U Marijuana (THC) Screen (NEGATIVE) 07/30/17 Range/Units 03:26 WBC (5.0-10.0) 10^3/uL RBC (4.2-5.4) 10^6/uL Hgb (12.0-16.0) g/dL Hct (37.0-47.0) % MCV (80-100) fL MCH (27.0-34.0) pg MCHC (33.0-35.0) g/dL Plt Count (150-450) 10^3/uL Neut % (Auto) (42.2-75.2) % Lymph % (Auto) (20.5-50.1) % [place] % (Auto) (2-8) % Eos % (Auto) (1.0-3.0) % Baso % (Auto) (0.0-1.0) % Sodium (135-145) mmol/L Potassium (3.6-5.0) mmol/L Chloride (101-111) mmol/L Carbon Dioxide (21.0-31.0) mmol/L Anion Gap BUN (7-18) mg/dL Creatinine (0.6-1.3) mg/dL Est Cr Clr Drug Dosing mL/min Estimated GFR (MDRD) BUN/Creatinine Ratio Glucose (74-105) mg/dL Calcium (8.4-10.2) mg/dl Total Bilirubin (0.2-1.0) mg/dL AST (10-42) IU/L ALT (10-60) IU/L Alkaline Phosphatase (42-121) IU/L Total Protein (6.7-8.2) g/dl Albumin (3.2-5.5) g/dl Globulin Albumin/Globulin Ratio Urine Color (YELLOW) Urine Appearance (CLEAR) Urine pH (5.0-9.0) Ur Specific [place] (1.005-1.030) Urine Protein (NEGATIVE) Urine Glucose (UA) (NEGATIVE) Urine Ketones (NEGATIVE) Urine Occult Blood (NEGATIVE) Urine Nitrite (NEGATIVE) Urine Bilirubin (NEGATIVE) Urine Urobilinogen (0.2-1.0) mg/dL Ur Leukocyte Esterase (NEGATIVE) Urine RBC /HPF Urine WBC (0-5/HPF) /HPF Ur Epithelial Cells /HPF Urine Bacteria (0-FEW/HPF) /HPF Urine Opiates Screen Negative (NEGATIVE) Ur Oxycodone Screen Negative (NEGATIVE) Urine Methadone Screen Negative (NEGATIVE) Ur Barbiturates Screen Negative (NEGATIVE) U Tricyclic Antidepress Negative (NEGATIVE) Ur Phencyclidine Scrn Negative (NEGATIVE) Ur Amphetamine Screen Negative (NEGATIVE) U Methamphetamines Scrn Negative (NEGATIVE) Urine MDMA Screen Negative (NEGATIVE) U Benzodiazepines Scrn Negative (NEGATIVE) Urine Cocaine Screen Negative (NEGATIVE) U Marijuana (THC) Screen Negative (NEGATIVE) Meds: Medications Discontinued Medications Generic Name Dose Route Start Last Admin Trade Name Freq PRN Reason Stop Dose Admin Butorphanol Tartrate 2 mg 07/30/17 03:40 07/30/17 03:46 Stadol IVPUSH 07/30/17 03:41 2 mg ONETIME ONE Administration Sodium Chloride 1,000 mls @ 999 mls/hr 07/30/17 02:24 07/30/17 02:41 Normal Saline IV 07/30/17 03:24 999 mls/hr .BOLUS ONE Administration Ketorolac Tromethamine 30 mg 07/30/17 02:30 07/30/17 02:40 Toradol IVPUSH 07/30/17 02:31 30 mg ONETIME ONE Administration Ondansetron HCl 4 mg 07/30/17 02:30 07/30/17 02:40 Zofran IV 07/30/17 02:31 4 mg ONETIME ONE Administration - Re-Assessments/Exams Free Text/Narrative Re-Assessment/Exam: 07/30/17 03:43 The patient was advised of the lab results. The patient continues to report that her headache is bad. The patient reports there may have been a little pain relief, but she still can not tolerate the bright lights. An order was placed for IV Stadol. Departure - Departure Time of Disposition: 04:17 Disposition: Home, Self-Care 01 Condition: Fair Clinical Impression: Migraine - Discharge Information Instructions: Migraine Headache, [id number] Forms: ED Department Discharge Care Plan Goals: The patient was advised of the examination and lab results during the visit. The patient was given a liter of IV fluids, IV Toradol and IV Stadol during the visit. The patient was encouraged to follow-up with her primary care facility for continued evaluation (neurology) and treatment. If the patient has any additional symptoms or concerns, the patient should visit her primary care facility or return to the emergency department. - My Orders Last 24 Hours: My Active Orders 07/30/17 03:26 DRUG SCREEN URINE BIORAD [URCHEM] Stat UA W/MICROSCOPIC [URIN] Stat - Assessment/Plan Last 24 Hours: My Active Orders 07/30/17 03:26 DRUG SCREEN URINE BIORAD [URCHEM] Stat UA W/MICROSCOPIC [URIN] Stat
[2017-07-30 02:59] LABS: ANION GAP 9.5; CHLORIDE,CL 107 mmol/L (101-111); SODIUM,NA 138 mmol/L (135-145)
[2017-07-30] MEDS ORDERED: Butorphanol 2 MG/ML SDV IVPUSH ONE (03:40)
== END 2017-07-30 04:24 | disposition home or self-care (01) ==
LOC: DL.ED 01:48
DX: G43.909 Migraine, unspecified, not intractable, without status migrainosus (principal)
CPT/HCPCS: 36415; 80053; 80305; 81001; 85025; 96361; 96374; 96375; 99283; J0595; J1885; J2405; J7030

== ENCOUNTER 2017-08-14 17:44 | Emergency (ER) | payer MEDICAID ==
[2017-08-14] MEDS ORDERED: diphenhydrAMINE 50 MG/ML SDV ONE (17:49)
[2017-08-14 17:51] VITALS: BP 124/78
[2017-08-14] MEDS ORDERED: diphenhydrAMINE 50 MG/ML SDV IM ONE (17:54)
[2017-08-14] MEDS ORDERED: methylPREDNISolone Sodium Succinate 125 MG/2 ML SDV IM ONE (18:30)
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
== END 2017-08-14 18:56 | disposition home or self-care (01) ==
LOC: DL.ED 17:44
DX: T63.481A Toxic effect of venom of other arthropod, accidental (unintentional), initial encounter (principal); L50.9 Urticaria, unspecified; R06.02 Shortness of breath; F17.210 Nicotine dependence, cigarettes, uncomplicated
CPT/HCPCS: 96372; 99283; J1200; J2930

== ENCOUNTER 2017-10-08 01:07 | Emergency (ER) | payer MEDICAID ==
[2017-10-08] MEDS ORDERED: Codeine/Promethazine 10-6.25 MG/5 ML Syrup 5 ML UD Cup PO ONE (01:08)
[2017-10-08] MEDS ORDERED: methylPREDNISolone Sodium Succinate 125 MG/2 ML SDV IM ONE (01:24)
[2017-10-08] MEDS ORDERED: Albuterol/Ipratropium 3.0-0.5 MG/3 ML Neb Soln NEB ONE (01:24)
--- NOTE | 2017-10-08 01:26 | EDM.PDOC ---
ED HPI GENERAL MEDICAL PROBLEM - General Chief Complaint: Respiratory Problem Stated Complaint: DIFFICULTY BREATHING [id number] Time Seen by Provider: 10/08/17 01:25 Source of Information: Reports: Patient History Limitations: Reports: No Limitations - History of Present Illness INITIAL COMMENTS - FREE TEXT/NARRATIVE: few days h/o cough - Related Data Allergies Allergy/AdvReac Type Severity Reaction Status Date / Time No Known Allergies Allergy Verified 10/08/17 01:13 Home Meds: Home Meds Acetaminophen [Tylenol] 3 tab-cap PO Q4HR PRN 05/05/15 [History] Ibuprofen 4 tab PO Q8HR PRN 05/05/15 [History] Past Medical History - Past Health History Medical/Surgical History: Denies Medical/Surgical History HEENT History: Reports: None Cardiovascular History: Reports: None Respiratory History: Reports: None Gastrointestinal History: Reports: Cholelithiasis, GERD Other Gastrointestinal History: positive gallstones Genitourinary History: Reports: None 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 Musculoskeletal History: Reports: None Neurological History: Reports: Migraines Psychiatric History: Reports: Depression Endocrine/Metabolic History: Reports: Other (See Below) Other Endocrine/Metabolic History: impaired glucose tolerance test Hematologic History: Reports: Anemia Immunologic History: Reports: None Oncologic (Cancer) History: Reports: None Dermatologic History: Reports: None - Infectious Disease History Infectious Disease History: Reports: Chicken Pox - Past Surgical History Head Surgeries/Procedures: Reports: None GI Surgical History: Reports: Cholecystectomy Female Surgical History: Reports: Section, Tubal Ligation Social & Family History - Family History Family Medical History: Noncontributory Cardiac: Reports: Hypertension Neurological: Reports: Migraines Endocrine/Metabolic: Reports: Diabetes, type II - Tobacco Use Smoking Status *Q: Current Every Day Smoker Years of Tobacco use: 15 Packs/Tins Daily: 0.2 Second Hand Smoke Exposure: Yes - Caffeine Use Caffeine Use: Reports: Coffee - Recreational Drug Use Recreational Drug Use: No - Living Situation & Occupation Living situation: Reports: with Significant Other, with Family Occupation: Unemployed ED ROS GENERAL - Review of Systems Review Of Systems: ROS reveals no pertinent complaints other than HPI. ED EXAM, GENERAL - Physical Exam Exam: See Below Exam Limited By: No Limitations General Appearance: Alert, WD/WN, Mild Distress, Other (cough spasms) Ears: Hearing Grossly Normal Throat/Mouth: Normal Voice, No Airway Compromise Head: Atraumatic Neck: Non-Tender, Full Range of Motion Respiratory/Chest: No Respiratory Distress, No Accessory Muscle Use, Rhonchi, Wheezing Cardiovascular: Regular Rate, Rhythm GI/Abdominal: Soft, Non-Tender Neurological: Alert, Oriented, Normal Cognition, Normal Gait, No Motor/Sensory Deficits Psychiatric: Flat Affect Skin Exam: Warm, Dry, Normal Color Lymphatic: No Adenopathy Course - Vital Signs Last Recorded V/S: Last Vital Signs Temp 36.3 C 10/08/17 01:10 Pulse 75 10/08/17 01:10 Resp 18 10/08/17 01:10 BP 134/84 10/08/17 01:10 Pulse Ox 100 10/08/17 01:10 - Orders/Labs/Meds Orders: Active Orders 24 hr Category Date Time Status RT Aerosol Therapy [RC] ASDIRECTED Care 10/08/17 01:24 Active Meds: Medications Discontinued Medications Generic Name Dose Route Start Last Admin Trade Name Freq PRN Reason Stop Dose Admin Albuterol/Ipratropium 3 ml 10/08/17 01:24 10/08/17 01:46 Duoneb 3.0-0.5 Mg/3 Ml NEB 10/08/17 01:25 3 ml ONETIME ONE Administration Methylprednisolone Sodium Succinate 125 mg 10/08/17 01:24 Solu-Medrol IM 10/08/17 01:25 ONETIME ONE Methylprednisolone Sodium Succinate 125 mg 10/08/17 01:36 10/08/17 01:50 Solu-Medrol IVPUSH 10/08/17 01:37 125 mg ONETIME ONE Administration - Re-Assessments/Exams Free Text/Narrative Re-Assessment/Exam: 10/08/17 02:19 results discussed with pt who is better s/p duoneb + solumedrol Departure - Departure Time of Disposition: 02:20 Disposition: Home, Self-Care 01 Condition: Good Clinical Impression: Bronchospasm with bronchitis, acute - Discharge Information Instructions: Acute Bronchitis, Adult, [id number] Forms: ED Department Discharge Additional Instructions: 1) take nebs 2) don't sleep flat at night 3) recheck as needed rx given; medrol dospak albuterol 2.5mg solution qid prn phenergan codeine syrup qid prn - My Orders Last 24 Hours: My Active Orders 10/08/17 01:24 RT Aerosol Therapy [RC] ASDIRECTED - Assessment/Plan Last 24 Hours: My Active Orders 10/08/17 01:24 RT Aerosol Therapy [RC] ASDIRECTED
[2017-10-08] MEDS ORDERED: methylPREDNISolone Sodium Succinate 125 MG/2 ML SDV IVPUSH ONE (01:36)
[2017-10-08] MEDS ORDERED: Codeine/Promethazine 10-6.25 MG/5 ML Syrup 5 ML UD Cup ONE (02:21)
[2017-10-08 02:34] VITALS: BP 112/66
== END 2017-10-08 02:30 | disposition home or self-care (01) ==
LOC: DL.ED 01:07
DX: J20.9 Acute bronchitis, unspecified (principal); F17.210 Nicotine dependence, cigarettes, uncomplicated; Z79.899 Other long term (current) drug therapy
CPT/HCPCS: 71045; 94640; 96374; 99285; J2930; A9270-GY; J7620-GY

== ENCOUNTER 2017-10-24 22:12 | Emergency (ER) | payer MEDICAID ==
[2017-10-24 22:18] VITALS: BP 147/88
[2017-10-24] MEDS: Aspirin 81 MG Tab.Chew PO ONE (22:48)
[2017-10-24 22:56] LABS: ANION GAP 12.4; CHLORIDE,CL 105 mmol/L (101-111); SODIUM,NA 137 mmol/L (135-145)
--- NOTE | 2017-10-24 23:21 | EDM.PDOC ---
ED HPI GENERAL MEDICAL PROBLEM - General Chief Complaint: Chest Pain Stated Complaint: CHEST PAIN [id number] Time Seen by Provider: 10/24/17 23:00 Source of Information: Reports: Patient History Limitations: Reports: No Limitations - History of Present Illness INITIAL COMMENTS - FREE TEXT/NARRATIVE: This 26 yo female patient reports to the ED with a 1 day history of intermittent chest pain. The patient reports that her pain is in the left side of her chest. 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 The patient has not been seen by her primary care facility. 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 Mid-Sternal Chest Pain Score (Numeric/FACES): 7 - Related Data Allergies Allergy/AdvReac Type Severity Reaction Status Date / Time No Known Allergies Allergy Verified 10/24/17 22:20 Home Meds: Home Meds Acetaminophen [Tylenol] 3 tab-cap PO Q4HR PRN 05/05/15 [History] Ibuprofen 4 tab PO Q8HR PRN 05/05/15 [History] Past Medical History - Past Health History Medical/Surgical History: Denies Medical/Surgical History HEENT History: Reports: None Cardiovascular History: Reports: None Respiratory History: Reports: None Gastrointestinal History: Reports: Cholelithiasis, GERD Other Gastrointestinal History: positive gallstones Genitourinary History: Reports: None 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 Musculoskeletal History: Reports: None Neurological History: Reports: Migraines Psychiatric History: Reports: Depression Endocrine/Metabolic History: Reports: Other (See Below) Other Endocrine/Metabolic History: impaired glucose tolerance test Hematologic History: Reports: Anemia Immunologic History: Reports: None Oncologic (Cancer) History: Reports: None Dermatologic History: Reports: None - Infectious Disease History Infectious Disease History: Reports: Chicken Pox - Past Surgical History Head Surgeries/Procedures: Reports: None GI Surgical History: Reports: Cholecystectomy Female Surgical History: Reports: Section, Tubal Ligation Social & Family History - Family History Family Medical History: Noncontributory Cardiac: Reports: Hypertension Neurological: Reports: Migraines Endocrine/Metabolic: Reports: Diabetes, type II - Tobacco Use Smoking Status *Q: Current Every Day Smoker Years of Tobacco use: 11 Packs/Tins Daily: 5 - Caffeine Use Caffeine Use: Reports: Soda - Recreational Drug Use Recreational Drug Use: No - Living Situation & Occupation Living situation: Reports: with Significant Other, with Family Occupation: Unemployed ED ROS GENERAL - Review of Systems Review Of Systems: ROS reveals no pertinent complaints other than HPI. ED EXAM, GENERAL - Physical Exam Exam: See Below Exam Limited By: No Limitations General Appearance: Alert, WD/WN, Mild Distress Eye Exam: Bilateral Eye: EOMI, Normal Inspection, PERRL Ears: Normal External Exam, Normal Canal, Hearing Grossly Normal, Normal TMs Nose: Normal Inspection, Normal Mucosa, No Blood Throat/Mouth: Normal Inspection, Normal Lips, Normal Teeth, Normal Gums, Normal Oropharynx, Normal Voice, No Airway Compromise Head: Atraumatic, Normocephalic Neck: Normal Inspection, Supple, Non-Tender, Full Range of Motion Respiratory/Chest: No Respiratory Distress, Lungs Clear, Normal Breath Sounds, No Accessory Muscle Use, Chest Non-Tender Cardiovascular: Normal Peripheral Pulses, Regular Rate, Rhythm, No Edema, No Gallop, No JVD, No Murmur, No Rub GI/Abdominal: Normal Bowel Sounds, Soft, Non-Tender, No Organomegaly, No Distention, No Abnormal Bruit, No Mass (Female) Exam: Deferred Rectal (Female) Exam: Deferred Back Exam: Normal Inspection, Full Range of Motion, NT Extremities: Normal Inspection, Normal Range of Motion, Non-Tender, Normal Capillary Refill, No Pedal Edema Neurological: Alert, Oriented, CN II-XII Intact, Normal Cognition, Normal Gait, Normal Reflexes, No Motor/Sensory Deficits Psychiatric: Normal Affect, Normal Mood Skin Exam: Warm, Dry, Intact, Normal Color, No Rash Lymphatic: No Adenopathy Course - Vital Signs Last Recorded V/S: Last Vital Signs Temp 36.9 C 10/24/17 22:17 Pulse 100 10/24/17 22:17 Resp 15 10/24/17 22:17 BP 147/88 H 10/24/17 22:17 Pulse Ox 100 10/24/17 22:17 - Orders/Labs/Meds Orders: Active Orders 24 hr Category Date Time Status EKG Documentation Completion [RC] URGENT Care 10/24/17 22:24 Ordered Labs: Laboratory Tests 10/24/17 10/24/17 Range/Units 22:29 22:29 WBC 15.4 H (5.0-10.0) 10^3/uL RBC 4.45 (4.2-5.4) 10^6/uL Hgb 10.1 L (12.0-16.0) g/dL Hct 33.6 L (37.0-47.0) % MCV 75.5 L (80-100) fL MCH 22.7 L (27.0-34.0) pg MCHC 30.1 L (33.0-35.0) g/dL Plt Count 373 (150-450) 10^3/uL Neut % (Auto) 50.5 (42.2-75.2) % Lymph % (Auto) 39.3 (20.5-50.1) % [place] % (Auto) 8.3 H (2-8) % Eos % (Auto) 1.6 (1.0-3.0) % Baso % (Auto) 0.3 (0.0-1.0) % Add Manual Diff Yes Neutrophils % (Manual) 53 (42-75) % Lymphocytes % (Manual) 39 (20-50) % Monocytes % (Manual) 8 (2-8) % Sodium 137 (135-145) mmol/L Potassium 3.4 L (3.6-5.0) mmol/L Chloride 105 (101-111) mmol/L Carbon Dioxide 23.0 (21.0-31.0) mmol/L Anion Gap 12.4 BUN 4 L (7-18) mg/dL Creatinine 0.8 (0.6-1.3) mg/dL Est Cr Clr Drug Dosing 87.38 mL/min Estimated GFR (MDRD) > 60 BUN/Creatinine Ratio 5.00 Glucose 97 (74-105) mg/dL Calcium 8.4 (8.4-10.2) mg/dl Total Bilirubin 0.3 (0.2-1.0) mg/dL AST 21 (10-42) IU/L ALT 20 (10-60) IU/L Alkaline Phosphatase 83 (42-121) IU/L Troponin I < 0.02 (0.00-0.02) ng/ml Total Protein 6.7 (6.7-8.2) g/dl Albumin 3.8 (3.2-5.5) g/dl Globulin 2.9 Albumin/Globulin Ratio 1.31 Meds: Medications Discontinued Medications Generic Name Dose Route Start Last Admin Trade Name Yang PRN Reason Stop Dose Admin Aspirin 324 mg 10/24/17 22:41 10/24/17 22:48 Aspirin PO 10/24/17 22:42 324 mg ONETIME ONE Administration Departure - Departure Time of Disposition: 23:17 Disposition: Home, Self-Care 01 Condition: Fair Clinical Impression: Chest wall discomfort, Nonspecific chest pain Instructions: Nonspecific Chest Pain, Kiky-[id number] Referrals: Anabell Condon MD [Primary Care Provider] - Forms: ED Department Discharge Care Plan Goals: The patient was advised of the examination, lab and EKG results during the visit. The patient was encouraged to continue to monitor for any changes in her symptoms. The patient may take Tylenol or ibuprofen for temporary symptom relief. If the patient has any additional symptoms or concerns, the patient should visit her primary care facility or return to the emergency department. - My Orders Last 24 Hours: My Active Orders 10/24/17 22:24 EKG Documentation Completion [RC] URGENT - Assessment/Plan Last 24 Hours: My Active Orders 10/24/17 22:24 EKG Documentation Completion [RC] URGENT
== END 2017-10-24 23:35 | disposition home or self-care (01) ==
LOC: DL.ED 22:12
DX: R07.2 Precordial pain (principal); F17.210 Nicotine dependence, cigarettes, uncomplicated
CPT/HCPCS: 36415; 80053; 84484; 85025; 93005; 93010; 99285; A9270; 99283

== ENCOUNTER 2017-11-02 00:30 | Emergency (ER) | payer MEDICAID ==
[2017-11-02 00:43] VITALS: BP 127/66
[2017-11-02] MEDS ORDERED: Sodium Chloride 0.9% 1,000 ML IV ONE (01:16)
[2017-11-02] MEDS ORDERED: diphenhydrAMINE 50 MG/ML SDV IVPUSH ONE (01:16)
[2017-11-02 01:41] LABS: ANION GAP 9.6; CHLORIDE,CL 107 mmol/L (101-111); SODIUM,NA 136 mmol/L (135-145)
--- NOTE | 2017-11-02 02:12 | EDM.PDOC ---
ED HPI GENERAL MEDICAL PROBLEM - General Chief Complaint: Headache Stated Complaint: MIGRAINE [id number] Time Seen by Provider: 11/02/17 02:07 Source of Information: Reports: Patient History Limitations: Reports: No Limitations - History of Present Illness INITIAL COMMENTS - FREE TEXT/NARRATIVE: onset headache this am not going away. came in tonight because she passed out. presently feeling ok. but concerned about her low Hb which tends to give her headaches. Right Headache Pain Score (Numeric/FACES): 8 - Related Data Allergies Allergy/AdvReac Type Severity Reaction Status Date / Time No Known Allergies Allergy Verified 11/02/17 00:43 Home Meds: Home Meds Acetaminophen [Tylenol] 3 tab-cap PO Q4HR PRN 05/05/15 [History] Ibuprofen 4 tab PO Q8HR PRN 05/05/15 [History] Past Medical History - Past Health History Medical/Surgical History: Denies Medical/Surgical History HEENT History: Reports: None Cardiovascular History: Reports: None Respiratory History: Reports: None Gastrointestinal History: Reports: Cholelithiasis, GERD Other Gastrointestinal History: positive gallstones Genitourinary History: Reports: None 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 Musculoskeletal History: Reports: None Neurological History: Reports: Migraines Psychiatric History: Reports: Depression Endocrine/Metabolic History: Reports: Other (See Below) Other Endocrine/Metabolic History: impaired glucose tolerance test Hematologic History: Reports: Anemia Immunologic History: Reports: None Oncologic (Cancer) History: Reports: None Dermatologic History: Reports: None - Infectious Disease History Infectious Disease History: Reports: Chicken Pox - Past Surgical History Head Surgeries/Procedures: Reports: None GI Surgical History: Reports: Cholecystectomy Female Surgical History: Reports: Section, Tubal Ligation Social & Family History - Family History Family Medical History: Noncontributory Cardiac: Reports: Hypertension Neurological: Reports: Migraines Endocrine/Metabolic: Reports: Diabetes, type II - Tobacco Use Smoking Status *Q: Current Every Day Smoker Years of Tobacco use: 10 Packs/Tins Daily: 0.1 Second Hand Smoke Exposure: Yes - Caffeine Use Caffeine Use: Reports: Soda - Recreational Drug Use Recreational Drug Use: No - Living Situation & Occupation Living situation: Reports: with Significant Other, with Family Occupation: Unemployed ED ROS GENERAL - Review of Systems Review Of Systems: ROS reveals no pertinent complaints other than HPI. - Physical Exam Exam: See Below Exam Limited By: No Limitations General Appearance: Alert, WD/WN, Mild Distress, Other (distraught) Eye Exam: Bilateral Eye: PERRL (pupils ess ER @ 4mm) Ears: Hearing Grossly Normal Throat/Mouth: Normal Voice, No Airway Compromise Head Exam: Atraumatic Neck: Non-Tender, Full Range of Motion Respiratory/Chest: No Respiratory Distress Cardiovascular: Regular Rate, Rhythm GI/Abdominal: Soft, Non-Tender Neuro Exam (Abbreviated): Alert, Oriented, Normal Cognition, Normal Gait, No Motor/Sensory Deficits Psychiatric: Flat Affect Skin Exam: Warm, Dry, Normal Color Course - Vital Signs Last Recorded V/S: Last Vital Signs Temp 37.2 C 11/02/17 00:40 Pulse 93 11/02/17 00:40 Resp 18 11/02/17 00:40 BP 127/66 11/02/17 00:40 Pulse Ox 100 11/02/17 00:40 - Orders/Labs/Meds Orders: Active Orders 24 hr Category Date Time Status Sodium Chloride 0.9% [Normal Saline] 1,000 ml Med 11/02/17 01:16 Active IV .BOLUS Medication Orders Sodium Chloride (Normal Saline) 1,000 mls @ 999 mls/hr IV .BOLUS ONE Stop: 11/02/17 02:16 Last Admin: 11/02/17 01:25 Dose: 999 mls/hr Labs: Laboratory Tests 11/02/17 11/02/17 Range/Units 01:11 01:11 WBC 14.3 H (5.0-10.0) 10^3/uL RBC 4.25 (4.2-5.4) 10^6/uL Hgb 9.6 L (12.0-16.0) g/dL Hct 31.8 L (37.0-47.0) % MCV 74.8 L (80-100) fL MCH 22.6 L (27.0-34.0) pg MCHC 30.2 L (33.0-35.0) g/dL Plt Count 383 (150-450) 10^3/uL Neut % (Auto) 54.3 (42.2-75.2) % Lymph % (Auto) 37.6 (20.5-50.1) % [place] % (Auto) 6.8 (2-8) % Eos % (Auto) 1.0 (1.0-3.0) % Baso % (Auto) 0.3 (0.0-1.0) % Sodium 136 (135-145) mmol/L Potassium 3.6 (3.6-5.0) mmol/L Chloride 107 (101-111) mmol/L Carbon Dioxide 23.0 (21.0-31.0) mmol/L Anion Gap 9.6 BUN 10 (7-18) mg/dL Creatinine 0.7 (0.6-1.3) mg/dL Est Cr Clr Drug Dosing 99.86 mL/min Estimated GFR (MDRD) > 60 BUN/Creatinine Ratio 14.28 Glucose 96 (74-105) mg/dL Calcium 8.7 (8.4-10.2) mg/dl Total Bilirubin 0.4 (0.2-1.0) mg/dL AST 21 (10-42) IU/L ALT 21 (10-60) IU/L Alkaline Phosphatase 76 (42-121) IU/L Total Protein 6.6 L (6.7-8.2) g/dl Albumin 3.6 (3.2-5.5) g/dl Globulin 3.0 Albumin/Globulin Ratio 1.20 Meds: Medications Generic Name Dose Route Start Last Admin Trade Name Freq PRN Reason Stop Dose Admin Sodium Chloride 1,000 mls @ 999 mls/hr 11/02/17 01:16 11/02/17 01:25 Normal Saline IV 11/02/17 02:16 999 mls/hr .BOLUS ONE Administration Discontinued Medications Generic Name Dose Route Start Last Admin Trade Name Freq PRN Reason Stop Dose Admin Diphenhydramine HCl 25 mg 11/02/17 01:16 11/02/17 01:27 Benadryl IVPUSH 11/02/17 01:17 25 mg ONETIME ONE Administration - Re-Assessments/Exams Free Text/Narrative Re-Assessment/Exam: 11/02/17 02:10 results discussed with pt. Departure - Departure Time of Disposition: 02:10 Disposition: Home, Self-Care 01 Clinical Impression: Migraine Anemia Qualifiers: Anemia type: unspecified type Qualified Code(s): D64.9 - Anemia, unspecified - Discharge Information Additional Instructions: 1) see clinic tomorrow for FOLIC ACID LEVEL and B12 LEVEL 2) recheck if there is any change or concern - My Orders Last 24 Hours: My Active Orders 11/02/17 01:16 Sodium Chloride 0.9% [Normal Saline] 1,000 ml IV .BOLUS - Assessment/Plan Last 24 Hours: My Active Orders 11/02/17 01:16 Sodium Chloride 0.9% [Normal Saline] 1,000 ml IV .BOLUS
== END 2017-11-02 02:15 | disposition home or self-care (01) ==
LOC: DL.ED 00:30
DX: G43.909 Migraine, unspecified, not intractable, without status migrainosus (principal); D64.9 Anemia, unspecified; F17.210 Nicotine dependence, cigarettes, uncomplicated
CPT/HCPCS: 36415; 80053; 85025; 96361; 96374; 99283; J1200; J7030

== ENCOUNTER 2017-11-09 00:09 | Emergency (ER) | payer SELFPAY ==
[2017-11-09 00:27] VITALS: BP 110/78
[2017-11-09 01:17] LABS: ANION GAP 10.8; CHLORIDE,CL 107 mmol/L (101-111); SODIUM,NA 138 mmol/L (135-145)
[2017-11-09] MEDS ORDERED: Promethazine 25 MG/ML SDV IM ONE (01:32)
[2017-11-09] MEDS ORDERED: Butorphanol 2 MG/ML SDV IM ONE (01:32)
--- NOTE | 2017-11-09 01:37 | EDM.PDOC ---
ED HPI GENERAL MEDICAL PROBLEM - General Chief Complaint: Headache Stated Complaint: HEADACHE [id number] Time Seen by Provider: 11/09/17 01:34 Source of Information: Reports: Patient History Limitations: Reports: No Limitations - History of Present Illness INITIAL COMMENTS - FREE TEXT/NARRATIVE: c/o recurrent migraine and chronic on-off leg pain and generally tired. Headache Pain Score (Numeric/FACES): 6 - Related Data Allergies Allergy/AdvReac Type Severity Reaction Status Date / Time No Known Allergies Allergy Verified 11/02/17 00:43 Home Meds: Home Meds Acetaminophen [Tylenol] 3 tab-cap PO Q4HR PRN 05/05/15 [History] Ibuprofen 4 tab PO Q8HR PRN 05/05/15 [History] Past Medical History - Past Health History Medical/Surgical History: Denies Medical/Surgical History HEENT History: Reports: None Cardiovascular History: Reports: None Respiratory History: Reports: None Gastrointestinal History: Reports: Cholelithiasis, GERD Other Gastrointestinal History: positive gallstones Genitourinary History: Reports: None 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: , 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 Musculoskeletal History: Reports: None Neurological History: Reports: Migraines Psychiatric History: Reports: Depression Endocrine/Metabolic History: Reports: Other (See Below) Other Endocrine/Metabolic History: impaired glucose tolerance test Hematologic History: Reports: Anemia Immunologic History: Reports: None Oncologic (Cancer) History: Reports: None Dermatologic History: Reports: None - Infectious Disease History Infectious Disease History: Reports: Chicken Pox - Past Surgical History Head Surgeries/Procedures: Reports: None GI Surgical History: Reports: Cholecystectomy Female Surgical History: Reports: Section, Tubal Ligation Social & Family History - Family History Family Medical History: Noncontributory Cardiac: Reports: Hypertension Neurological: Reports: Migraines Endocrine/Metabolic: Reports: Diabetes, type II - Tobacco Use Smoking Status *Q: Current Every Day Smoker Years of Tobacco use: 12 Packs/Tins Daily: 0.5 Second Hand Smoke Exposure: Yes - Caffeine Use Caffeine Use: Reports: Soda - Recreational Drug Use Recreational Drug Use: No - Living Situation & Occupation Living situation: Reports: with Significant Other, with Family Occupation: Unemployed ED ROS GENERAL - Review of Systems Review Of Systems: ROS reveals no pertinent complaints other than HPI. - Physical Exam Exam: See Below Exam Limited By: No Limitations General Appearance: Alert, WD/WN, Mild Distress, Other (distraught) Ears: Hearing Grossly Normal Throat/Mouth: Normal Voice, No Airway Compromise Head Exam: Atraumatic Neck: Non-Tender, Full Range of Motion Respiratory/Chest: No Respiratory Distress Cardiovascular: Regular Rate, Rhythm GI/Abdominal: Soft, Non-Tender Neuro Exam (Abbreviated): Alert, Oriented, Normal Cognition, Normal Gait, No Motor/Sensory Deficits Psychiatric: Tearful Skin Exam: Warm, Dry, Normal Color Course - Vital Signs Last Recorded V/S: Last Vital Signs Temp 36.7 C 11/09/17 00:26 Pulse 72 11/09/17 00:26 Resp 16 11/09/17 00:26 BP 110/78 11/09/17 00:26 Pulse Ox 75 L 11/09/17 00:26 - Orders/Labs/Meds Labs: Laboratory Tests 11/09/17 11/09/17 11/09/17 Range/Units 00:50 00:50 00:50 WBC 13.3 H (5.0-10.0) 10^3/uL RBC 4.34 (4.2-5.4) 10^6/uL Hgb 9.9 L (12.0-16.0) g/dL Hct 33.0 L (37.0-47.0) % MCV 76.0 L (80-100) fL MCH 22.8 L (27.0-34.0) pg MCHC 30.0 L (33.0-35.0) g/dL Plt Count 430 (150-450) 10^3/uL Neut % (Auto) 42.7 (42.2-75.2) % Lymph % (Auto) 49.4 (20.5-50.1) % [place] % (Auto) 6.3 (2-8) % Eos % (Auto) 1.4 (1.0-3.0) % Baso % (Auto) 0.2 (0.0-1.0) % Sodium 138 (135-145) mmol/L Potassium 3.8 (3.6-5.0) mmol/L Chloride 107 (101-111) mmol/L Carbon Dioxide 24.0 (21.0-31.0) mmol/L Anion Gap 10.8 BUN 7 (7-18) mg/dL Creatinine 0.7 (0.6-1.3) mg/dL Est Cr Clr Drug Dosing 99.86 mL/min Estimated GFR (MDRD) > 60 BUN/Creatinine Ratio 10.00 Glucose 101 (74-105) mg/dL Calcium 8.4 (8.4-10.2) mg/dl Total Bilirubin 0.3 (0.2-1.0) mg/dL AST 17 (10-42) IU/L ALT 16 (10-60) IU/L Alkaline Phosphatase 79 (42-121) IU/L C-Reactive Protein 0.5 (0.0-1.3) mg/dL Total Protein 6.7 (6.7-8.2) g/dl Albumin 3.8 (3.2-5.5) g/dl Globulin 2.9 Albumin/Globulin Ratio 1.31 Meds: Medications Discontinued Medications Generic Name Dose Route Start Last Admin Trade Name Freq PRN Reason Stop Dose Admin Butorphanol Tartrate 2 mg 11/09/17 01:32 Stadol IM 11/09/17 01:33 ONETIME ONE Promethazine HCl 25 mg 11/09/17 01:32 Phenergan IM 11/09/17 01:33 ONETIME ONE - Re-Assessments/Exams Free Text/Narrative Re-Assessment/Exam: 11/09/17 01:35 results discussed with pt. Departure - Departure Time of Disposition: 01:35 Disposition: Home, Self-Care 01 Condition: Good Clinical Impression: Migraine aura, persistent Qualifiers: Status migrainosus presence: with status migrainosus Intractability: not intractable Qualified Code(s): G43.501 - Persistent migraine aura without cerebral infarction, not intractable, with status migrainosus - Discharge Information Instructions: Migraine Headache, Fcun-pi-Tral Additional Instructions: 1) see clinic for possible MRI OF LUMBAR for disk herniation 2) recheck as needed
== END 2017-11-09 01:49 | disposition home or self-care (01) ==
LOC: DL.ED 00:09
DX: G43.501 Persistent migraine aura without cerebral infarction, not intractable, with status migrainosus (principal)
CPT/HCPCS: 36415; 80053; 85025; 86140; 96374; 96375; 99284; J0595; J2550

== ENCOUNTER 2018-03-25 01:08 | Emergency (ER) | payer MEDICAID ==
[2018-03-25] MEDS ORDERED: Cyclobenzaprine 10 MG Tab PO ONE (01:09)
[2018-03-25 01:20] VITALS: BP 121/81
[2018-03-25] MEDS ORDERED: methylPREDNISolone Sodium Succinate 125 MG/2 ML SDV IM ONE (01:36)
[2018-03-25] MEDS ORDERED: Cyclobenzaprine 10 MG Tab ONE (01:38)
--- NOTE | 2018-03-25 01:42 | EDM.PDOC ---
ED HPI GENERAL MEDICAL PROBLEM - General Chief Complaint: General Stated Complaint: Bronchitis/RIGHT LEG SHOOTING PAIN Time Seen by Provider: 03/25/18 01:35 Source of Information: Reports: Patient History Limitations: Reports: No Limitations - History of Present Illness INITIAL COMMENTS - FREE TEXT/NARRATIVE: This 27 yo female patient reports to the ED with a 2-3 day history of lower back pain with pain going into her right leg. The patient reports she has been taking ibuprofen and Tylenol with little to no symptom relief. The patient reports she has an appointment with Dr. Ross on 04/04/18 for her low back pain , but her symptoms got too bad for her to wait any longer. Duration: Day(s):, Constant, Getting Worse Location: Reports: Back, Lower Extremity, Right Quality: Reports: Ache, Sharp Severity: Severe Improves with: Reports: None Worsens with: Reports: None Context: Reports: Other Associated Symptoms: Reports: Cough Treatments CART PUSHER: Reports: Acetaminophen, NSAIDS Right Lower Back Pain Score (Numeric/FACES): 9 - Related Data Allergies Allergy/AdvReac Type Severity Reaction Status Date / Time codeine Allergy Hallucinati Verified 03/25/18 01:11 ons Home Meds: Home Meds Ferrous Sulfate [Iron] 325 mg PO DAILY 01/19/18 [History] Mv-Min/Iron/Folic/Calcium/Vitk [Women's Multivitamin Tablet] 1 tab PO DAILY 03/08 [History] Past Medical History - Past Health History Medical/Surgical History: Denies Medical/Surgical History HEENT History: Reports: None Cardiovascular History: Reports: None Respiratory History: Reports: None Gastrointestinal History: Reports: Cholelithiasis, GERD Other Gastrointestinal History: positive gallstones Genitourinary History: Reports: None 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: , 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 Musculoskeletal History: Reports: None Neurological History: Reports: Migraines Psychiatric History: Reports: Depression Endocrine/Metabolic History: Reports: Other (See Below) Other Endocrine/Metabolic History: impaired glucose tolerance test Hematologic History: Reports: Anemia Immunologic History: Reports: None Oncologic (Cancer) History: Reports: None Dermatologic History: Reports: None - Infectious Disease History Infectious Disease History: Reports: Chicken Pox - Past Surgical History Head Surgeries/Procedures: Reports: None GI Surgical History: Reports: Cholecystectomy Female Surgical History: Reports: Section, Tubal Ligation Social & Family History - Family History Family Medical History: Noncontributory Cardiac: Reports: Hypertension Neurological: Reports: Migraines Endocrine/Metabolic: Reports: Diabetes, type II - Tobacco Use Smoking Status *Q: Light Tobacco Smoker Years of Tobacco use: 10 Packs/Tins Daily: 0.2 - Caffeine Use Caffeine Use: Reports: Soda - Recreational Drug Use Recreational Drug Use: No - Living Situation & Occupation Living situation: Reports: with Significant Other, with Family Occupation: Unemployed ED ROS GENERAL - Review of Systems Review Of Systems: ROS reveals no pertinent complaints other than HPI. ED EXAM, GENERAL - Physical Exam Exam: See Below Exam Limited By: No Limitations General Appearance: Alert, WD/WN, No Apparent Distress Eye Exam: Bilateral Eye: EOMI, Normal Inspection, PERRL Ears: Normal External Exam, Normal Canal, Hearing Grossly Normal, Normal TMs Nose: Normal Inspection, Normal Mucosa, No Blood Throat/Mouth: Normal Inspection, Normal Lips, Normal Teeth, Normal Gums, Normal Oropharynx, Normal Voice, No Airway Compromise Head: Atraumatic, Normocephalic Neck: Normal Inspection, Supple, Non-Tender, Full Range of Motion Respiratory/Chest: No Respiratory Distress, Lungs Clear, Normal Breath Sounds, No Accessory Muscle Use, Chest Non-Tender Cardiovascular: Normal Peripheral Pulses, Regular Rate, Rhythm, No Edema, No Gallop, No JVD, No Murmur, No Rub GI/Abdominal: Normal Bowel Sounds, Soft, Non-Tender, No Organomegaly, No Distention, No Abnormal Bruit, No Mass (Female) Exam: Deferred Rectal (Female) Exam: Deferred Back Exam: Decreased Range of Motion, Paraspinal Tenderness, Other (pain with palpation of sciatic nerve) Extremities: Normal Inspection, Normal Range of Motion, Non-Tender, Normal Capillary Refill, No Pedal Edema Neurological: Alert, Oriented, CN II-XII Intact, Normal Cognition, Normal Gait, Normal Reflexes, No Motor/Sensory Deficits Psychiatric: Normal Affect, Normal Mood Skin Exam: Warm, Dry, Intact, Normal Color, No Rash Lymphatic: No Adenopathy Course - Vital Signs Last Recorded V/S: Last Vital Signs Temp 36.3 C 03/25/18 01:19 Pulse 78 03/25/18 01:19 Resp 16 03/25/18 01:19 BP 121/81 03/25/18 01:19 Pulse Ox 100 03/25/18 01:19 - Orders/Labs/Meds Meds: Medications Discontinued Medications Generic Name Dose Route Start Last Admin Trade Name Yang PRN Reason Stop Dose Admin Cyclobenzaprine HCl Confirm 03/25/18 01:38 Flexeril Administered 03/25/18 01:39 Dose 10 mg .ROUTE .STK-MED ONE Methylprednisolone Sodium Succinate 125 mg 03/25/18 01:36 03/25/18 01:40 Solu-Medrol IM 03/25/18 01:37 125 mg ONETIME ONE Administration Departure - Departure Time of Disposition: 01:39 Disposition: Home, Self-Care 01 Condition: Fair Clinical Impression: Low back pain with sciatica Qualifiers: Chronicity: acute Back pain laterality: right Sciatica laterality: sciatica of right side Qualified Code(s): M54.41 - Lumbago with sciatica, right side - Discharge Information *PRESCRIPTION DRUG MONITORING PROGRAM REVIEWED*: Not Applicable *COPY OF PRESCRIPTION DRUG MONITORING REPORT IN PATIENT YVON: Not Applicable Instructions: Sciatica, [id number], Back Pain, Adult, [id number] Forms: ED Department Discharge Care Plan Goals: The patient was advised of the examination results during the visit. The patient was given an injection of SoluMedrol while in the ED. The patient was discharged with a dose of Flexeril (10 mg) to take at bedtime and a script for Prednisone (20 mg) #10 to take 2 by mouth daily (starting 03/26/18) and Flexeril ( 10 mg) #10 to take 1 by mouth at bedtime as needed. If the patient has any additional symptoms or concerns, the patient should either return to the emergency department or visit her primary care facility.
== END 2018-03-25 01:54 | disposition home or self-care (01) ==
LOC: DL.ED 01:08
DX: M54.41 Lumbago with sciatica, right side (principal); I10 Essential (primary) hypertension; F17.210 Nicotine dependence, cigarettes, uncomplicated; Z88.5 Allergy status to narcotic agent
CPT/HCPCS: 96372; 99283; J2930

== ENCOUNTER 2018-05-01 11:01 | Emergency (ER) | payer MEDICAID ==
[2018-05-01 12:30] VITALS: BP 123/74
[2018-05-01] MEDS ORDERED: Sodium Chloride 0.9% 10 ML Syringe FLUSH PRN (12:47)
--- NOTE | 2018-05-01 12:48 | EDM.PDOC ---
ED HPI GENERAL MEDICAL PROBLEM - General Chief Complaint: Skin Complaint Stated Complaint: LEFT SIDE OF JAW, SWOLLEN/HURTS Time Seen by Provider: 05/01/18 12:40 Source of Information: Reports: Patient History Limitations: Reports: No Limitations - History of Present Illness INITIAL COMMENTS - FREE TEXT/NARRATIVE: The patient comes emergency Department today with complaints of a red swollen area behind her left ear. Over the past couple days she has noticed an area of tenderness and erythema and induration behind her left ear. This morning she woke up her face was swollen. She has not had any recent trauma or injury to the area. No fever no chills. No recent ear infection. Her tetanus immunization is up-to-date. Treatments DESKTOP ARCHITECT: Reports: Other (see below) Other Treatments DESKTOP ARCHITECT: none Left Posterior Ear Pain Score (Numeric/FACES): 6 - Related Data Allergies Allergy/AdvReac Type Severity Reaction Status Date / Time codeine Allergy Hallucinati Verified 05/01/18 18:55 ons Home Meds: Home Meds Ferrous Sulfate [Iron] 325 mg PO DAILY 01/19/18 [History] Past Medical History - Past Health History Medical/Surgical History: Denies Medical/Surgical History HEENT History: Reports: None Cardiovascular History: Reports: None Respiratory History: Reports: None Gastrointestinal History: Reports: Cholelithiasis, GERD Other Gastrointestinal History: positive gallstones Genitourinary History: Reports: None 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: , 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 Musculoskeletal History: Reports: None Neurological History: Reports: Migraines Psychiatric History: Reports: Depression Endocrine/Metabolic History: Reports: Other (See Below) Other Endocrine/Metabolic History: impaired glucose tolerance test Hematologic History: Reports: Anemia Immunologic History: Reports: None Oncologic (Cancer) History: Reports: None Dermatologic History: Reports: None - Infectious Disease History Infectious Disease History: Reports: Chicken Pox - Past Surgical History Head Surgeries/Procedures: Reports: None GI Surgical History: Reports: Cholecystectomy Female Surgical History: Reports: Section, Tubal Ligation Social & Family History - Family History Family Medical History: Noncontributory Cardiac: Reports: Hypertension Neurological: Reports: Migraines Endocrine/Metabolic: Reports: Diabetes, type II - Tobacco Use Smoking Status *Q: Current Every Day Smoker Years of Tobacco use: 10 Packs/Tins Daily: 0.3 - Caffeine Use Caffeine Use: Reports: Soda, Tea - Recreational Drug Use Recreational Drug Use: No - Living Situation & Occupation Living situation: Reports: with Significant Other, with Family Occupation: Unemployed ED ROS GENERAL - Review of Systems Review Of Systems: ROS reveals no pertinent complaints other than HPI. ED EXAM, SKIN/RASH Exam: See Below Exam Limited By: No Limitations General Appearance: Alert, WD/WN Eye Exam: Bilateral Eye: Normal Inspection, PERRL Ears: No: Normal External Exam (Postauricularly there is a area of erythema induration and swelling and tenderness. The mastoid is not boggy nor tender. The pinna is only erythematous postauricular. Ear canal is unremarkable. TM is normal) Nose: Normal Inspection, Normal Mucosa Throat/Mouth: Normal Inspection, Normal Lips, Normal Oropharynx Head: Atraumatic, Normocephalic Neck: Normal Inspection, Supple, Non-Tender Respiratory/Chest: No Respiratory Distress, Lungs Clear, No Accessory Muscle Use Course - Vital Signs Last Recorded V/S: Last Vital Signs Temp 36.8 C 05/01/18 11:43 Pulse 67 05/01/18 11:43 Resp 14 05/01/18 11:43 BP 123/74 05/01/18 11:43 Pulse Ox 100 05/01/18 11:43 - Orders/Labs/Meds Orders: Active Orders 24 hr Category Date Time Status Peripheral IV Care [RC] . DIRECTED Care 05/01/18 12:47 Active Peripheral IV Insertion Adult [OM.PC] Stat Oth 05/01/18 12:46 Ordered Meds: Medications Discontinued Medications Generic Name Dose Route Start Last Admin Trade Name Freq PRN Reason Stop Dose Admin Sodium Chloride 10 ml 05/01/18 12:47 Saline Flush FLUSH ASDIRECTED PRN Keep Vein Open - Re-Assessments/Exams Free Text/Narrative Re-Assessment/Exam: 05/02/18 08:31 After the initial exam the patient got a phone call from her daughter and had to leave. She left AMA prior to discussion of risk and benefits. She did sign the AMA paperwork. Departure - Departure Time of Disposition: 12:50 Disposition: Against Medical Advice 07 Clinical Impression: Posterior auricular pain Qualifiers: Laterality: left Qualified Code(s): H92.02 - Otalgia, left ear - Discharge Information Referrals: Anabell Condon MD [Primary Care Provider] - Forms: ED Department Discharge - My Orders Last 24 Hours: My Active Orders 05/01/18 12:46 Peripheral IV Insertion Adult [OM.PC] Stat 05/01/18 12:47 Peripheral IV Care [RC] . DIRECTED - Assessment/Plan Last 24 Hours: My Active Orders 05/01/18 12:46 Peripheral IV Insertion Adult [OM.PC] Stat 05/01/18 12:47 Peripheral IV Care [RC] . DIRECTED Assessment:: Postauricular cellulitis versus abscess unable to completely identify as the patient left AMA Plan: Patient left AMA without discussion of risks and benefits of plan of care
== END 2018-05-01 12:52 | disposition left against medical advice (07) ==
LOC: DL.ED 11:01
DX: H92.02 Otalgia, left ear (principal); F17.210 Nicotine dependence, cigarettes, uncomplicated; Z88.5 Allergy status to narcotic agent; Z79.899 Other long term (current) drug therapy
CPT/HCPCS: 99282

== ENCOUNTER 2018-05-01 17:20 | Emergency (ER) | payer MEDICAID ==
[2018-05-01] MEDS ORDERED: Ibuprofen 600 MG Tab PO ONE (17:21)
[2018-05-01] MEDS ORDERED: Mupirocin Oint 22 GM Tube TOP ONE (17:21)
[2018-05-01] MEDS ORDERED: Clindamycin HCl 150 MG Cap PO ONE (17:21)
[2018-05-01 18:55] VITALS: BP 136/91
[2018-05-01] MEDS ORDERED: Clindamycin HCl 150 MG Cap ONE ×2 (19:23→19:26)
[2018-05-01] MEDS ORDERED: Ibuprofen 600 MG Tab ONE (19:23)
[2018-05-01] MEDS ORDERED: Mupirocin Oint 22 GM Tube ONE (19:24)
--- NOTE | 2018-05-01 19:28 | EDM.PDOC ---
ED HPI GENERAL MEDICAL PROBLEM - General Chief Complaint: ENT Problem Stated Complaint: SWELLING BEHIND LEFT EAR DOWN JAW LINE Time Seen by Provider: 05/01/18 19:15 Source of Information: Reports: Patient History Limitations: Reports: No Limitations - History of Present Illness INITIAL COMMENTS - FREE TEXT/NARRATIVE: c/o pain behind left ear, small bump 2 days ago, tonight seems bigger and more painful, no known fever, no hx skin infections. no central ear pain. 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 Left Ear Pain Score (Numeric/FACES): 7 - Related Data Allergies Allergy/AdvReac Type Severity Reaction Status Date / Time codeine Allergy Hallucinati Verified 05/01/18 18:55 ons Home Meds: Home Meds Ferrous Sulfate [Iron] 325 mg PO DAILY 01/19/18 [History] Past Medical History - Past Health History Medical/Surgical History: Denies Medical/Surgical History HEENT History: Reports: None Cardiovascular History: Reports: None Respiratory History: Reports: None Gastrointestinal History: Reports: Cholelithiasis, GERD Other Gastrointestinal History: positive gallstones Genitourinary History: Reports: None 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: , 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 Musculoskeletal History: Reports: None Neurological History: Reports: Migraines Psychiatric History: Reports: Depression Endocrine/Metabolic History: Reports: Other (See Below) Other Endocrine/Metabolic History: impaired glucose tolerance test Hematologic History: Reports: Anemia Immunologic History: Reports: None Oncologic (Cancer) History: Reports: None Dermatologic History: Reports: None - Infectious Disease History Infectious Disease History: Reports: Chicken Pox - Past Surgical History Head Surgeries/Procedures: Reports: None GI Surgical History: Reports: Cholecystectomy Female Surgical History: Reports: Section, Tubal Ligation Social & Family History - Family History Family Medical History: Noncontributory Cardiac: Reports: Hypertension Neurological: Reports: Migraines Endocrine/Metabolic: Reports: Diabetes, type II - Tobacco Use Smoking Status *Q: Current Every Day Smoker Years of Tobacco use: 10 Packs/Tins Daily: 6 - Caffeine Use Caffeine Use: Reports: Soda, Tea - Recreational Drug Use Recreational Drug Use: No - Living Situation & Occupation Living situation: Reports: with Significant Other, with Family Occupation: Unemployed ED ROS ENT - Review of Systems Review Of Systems: ROS reveals no pertinent complaints other than HPI. ED EXAM, ENT - Physical Exam Exam: See Below Exam Limited By: No Limitations General Appearance: Alert, Mild Distress Eye Exam: Bilateral Eye: EOMI Ears: Normal Canal, Normal TMs, Other (post auricular tenderness mild swelling small acess in aricular fold mild anterior posterion lymphadenopay) Nose: Normal Inspection Mouth/Throat: Normal Inspection Head: Atraumatic, Normocephalic Neck: Lymphadenopathy (L) Respiratory/Chest: No Respiratory Distress, Lungs Clear Extremities: Normal Range of Motion Neurological: Alert, Oriented, Normal Cognition Psychiatric: Normal Affect, Normal Mood Skin: Warm, Dry, Erythema. No: Increased Warmth Course - Vital Signs Last Recorded V/S: Last Vital Signs Temp 99 F 05/01/18 18:48 Pulse 60 05/01/18 18:48 Resp 17 05/01/18 18:48 BP 136/91 H 05/01/18 18:48 Pulse Ox 100 05/01/18 18:48 Departure - Departure Time of Disposition: 19:22 Disposition: Home, Self-Care 01 Condition: Good Clinical Impression: Abscess of postauricular region - Discharge Information *PRESCRIPTION DRUG MONITORING PROGRAM REVIEWED*: No *COPY OF PRESCRIPTION DRUG MONITORING REPORT IN PATIENT YVON: No Instructions: Skin Abscess Additional Instructions: warm pack to region mupirocin ointment apply 3 times daily clindamycin 150mg 2 three times daily for one week alternate tylenol 650mg and ibuprofen 600mg every 3-4 hours as needed for discomfort clinic follow up on Sunday
== END 2018-05-01 19:31 | disposition home or self-care (01) ==
LOC: DL.ED 17:20
DX: H60.02 Abscess of left external ear (principal); Z88.5 Allergy status to narcotic agent; F17.210 Nicotine dependence, cigarettes, uncomplicated
CPT/HCPCS: 99282; A9270

== ENCOUNTER 2018-06-26 21:14 | Emergency (ER) | payer MEDICAID ==
[2018-06-26 21:28] VITALS: BP 120/76
[2018-06-26] MEDS ORDERED: methylPREDNISolone Sodium Succinate 125 MG/2 ML SDV IM ONE (21:43)
--- NOTE | 2018-06-26 21:50 | EDM.PDOC ---
ED HPI GENERAL MEDICAL PROBLEM - General Chief Complaint: Back Pain or Injury Stated Complaint: MESSED BACK UP [id number] Time Seen by Provider: 06/26/18 21:40 Source of Information: Reports: Patient History Limitations: Reports: No Limitations - History of Present Illness INITIAL COMMENTS - FREE TEXT/NARRATIVE: This 27 yo female patient reports to the ED with lower back pain. The patient reports she left work early today to help move some appliances. After moving the appliances, the patient began to have increased pain in her lower back. The patient reports she has take ibuprofen, but has had no symptom relief. The patient reports numerous previous back injuries, but has not had an MRI for further work up. The patient reports she does have muscle relaxers at home, but she has not taken any at this time. 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 Lower Back Pain Score (Numeric/FACES): 8 - Related Data Allergies Allergy/AdvReac Type Severity Reaction Status Date / Time codeine Allergy Hallucinati Verified 05/01/18 18:55 ons Home Meds: Home Meds Ferrous Sulfate [Iron] 325 mg PO DAILY 01/19/18 [History] Past Medical History - Past Health History Medical/Surgical History: Denies Medical/Surgical History HEENT History: Reports: None Cardiovascular History: Reports: None Respiratory History: Reports: None Gastrointestinal History: Reports: Cholelithiasis, GERD Other Gastrointestinal History: positive gallstones Genitourinary History: Reports: None 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: , 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 Musculoskeletal History: Reports: None Neurological History: Reports: Migraines Psychiatric History: Reports: Depression Endocrine/Metabolic History: Reports: Other (See Below) Other Endocrine/Metabolic History: impaired glucose tolerance test Hematologic History: Reports: Anemia Immunologic History: Reports: None Oncologic (Cancer) History: Reports: None Dermatologic History: Reports: None - Infectious Disease History Infectious Disease History: Reports: Chicken Pox - Past Surgical History Head Surgeries/Procedures: Reports: None GI Surgical History: Reports: Cholecystectomy Female Surgical History: Reports: Section, Tubal Ligation Social & Family History - Family History Family Medical History: Noncontributory Cardiac: Reports: Hypertension Neurological: Reports: Migraines Endocrine/Metabolic: Reports: Diabetes, type II - Tobacco Use Smoking Status *Q: Current Some Day Smoker Years of Tobacco use: 15 Packs/Tins Daily: 0.5 Second Hand Smoke Exposure: Yes - Caffeine Use Caffeine Use: Reports: Coffee, Soda - Recreational Drug Use Recreational Drug Use: No - Living Situation & Occupation Living situation: Reports: with Significant Other, with Family Occupation: Unemployed ED ROS GENERAL - Review of Systems Review Of Systems: ROS reveals no pertinent complaints other than HPI. ED EXAM,LOWER BACK PAIN/INJURY - Physical Exam Exam: See Below Exam Limited By: No Limitations General Appearance: Alert, WD/WN, Moderate Distress Eye Exam: Bilateral Eye: EOMI, Normal Inspection, PERRL Ears: Normal External Exam, Normal Canal, Hearing Grossly Normal, Normal TMs Nose: Normal Inspection, Normal Mucosa, No Blood Throat/Mouth: Normal Inspection, Normal Lips, Normal Teeth, Normal Gums, Normal Oropharynx, Normal Voice, No Airway Compromise Head: Atraumatic, Normocephalic Neck: Normal Inspection, Supple, Non-Tender, Full Range of Motion Respiratory/Chest: No Respiratory Distress, Lungs Clear, Normal Breath Sounds, No Accessory Muscle Use, Chest Non-Tender Cardiovascular: Normal Peripheral Pulses, Regular Rate, Rhythm, No Edema, No Gallop, No JVD, No Murmur, No Rub (Female) Exam: Deferred Rectal (Female) Exam: Deferred Back Exam: Paraspinal Tenderness (mid lower back) Extremities: Normal Inspection, Normal Range of Motion, Non-Tender, No Pedal Edema, Normal Capillary Refill Neurological: Alert, Normal Mood/Affect, Normal Dorsiflexion, CN II-XII Intact, Normal Plantar Flexion, Abnormal Gait (due to lower back pain) Psychiatric: Normal Affect, Normal Mood Skin Exam: Warm, Dry, Intact, Normal Color, No Rash Lymphatic: No Adenopathy Course - Vital Signs Last Recorded V/S: Last Vital Signs Temp 36.7 C 06/26/18 21:27 Pulse 95 06/26/18 21:27 Resp 18 06/26/18 21:27 BP 120/76 06/26/18 21:27 Pulse Ox 100 06/26/18 21:27 - Orders/Labs/Meds Meds: Medications Discontinued Medications Generic Name Dose Route Start Last Admin Trade Name Freq PRN Reason Stop Dose Admin Methylprednisolone Sodium Succinate 125 mg 06/26/18 21:43 Solu-Medrol IM 06/26/18 21:44 ONETIME ONE Departure - Departure Time of Disposition: 21:49 Disposition: Home, Self-Care 01 Condition: Fair Clinical Impression: Low back pain Qualifiers: Chronicity: acute Back pain laterality: bilateral Sciatica presence: without sciatica Qualified Code(s): M54.5 - Low back pain - Discharge Information *PRESCRIPTION DRUG MONITORING PROGRAM REVIEWED*: Not Applicable *COPY OF PRESCRIPTION DRUG MONITORING REPORT IN PATIENT YVON: Not Applicable Instructions: Muscle Strain, [id number], Acute Back Pain, Adult Care Plan Goals: The patient was advised of the examination results during the visit. The patient was given an injection of SoluMedrol while in the ED. The patient was discharged with a script for Prednisone (20 mg) #10 to take 2 by mouth daily for 5 days. The patient should follow-up with her primary care facility for continued evaluation and further management. If the patient has any additional symptoms or concerns, the patient should either return to the emergency department or visit her primary care facility.
== END 2018-06-26 22:00 | disposition home or self-care (01) ==
LOC: DL.ED 21:14
DX: M54.5 Low back pain (principal); D64.9 Anemia, unspecified; Z79.899 Other long term (current) drug therapy; Z88.5 Allergy status to narcotic agent
CPT/HCPCS: 96372; 99282; J2930

== ENCOUNTER 2018-07-24 23:15 | Emergency (ER) | payer MEDICAID ==
[2018-07-24] MEDS ORDERED: Sodium Chloride 0.9% 10 ML Syringe FLUSH PRN (23:53)
[2018-07-24] MEDS ORDERED: Sodium Chloride 0.9% 1,000 ML IV ONE (23:57)
--- NOTE | 2018-07-25 00:13 | EDM.PDOC ---
ED HPI GENERAL MEDICAL PROBLEM - General Chief Complaint: ENT Problem Stated Complaint: STREP THROAT Time Seen by Provider: 07/25/18 00:05 Source of Information: Reports: Patient, RN, RN Notes Reviewed History Limitations: Reports: No Limitations - History of Present Illness INITIAL COMMENTS - FREE TEXT/NARRATIVE: Pt to ER with c/o headache that began about 2 days ago. Patient states she has had neck pain and stiffness as well. States she was at work yesterday, and does not remember much of the day. Patient admits to chills, unsure about fever. Admits to N/V, denies diarrhea. States she is sensitive to light. Also c/o sore throat, tender neck laterally. 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 LIEUTENANT: Reports: Acetaminophen, NSAIDS, Other (see below) Other Treatments CORRECTIONAL OFFICER LIEUTENANT: chloraseptic spray Throat Pain Score (Numeric/FACES): 7 - Related Data Allergies Allergy/AdvReac Type Severity Reaction Status Date / Time codeine Allergy Hallucinati Verified 07/24/18 23:24 ons Home Meds: Home Meds Ferrous Sulfate [Iron] 325 mg PO DAILY 01/19/18 [History] Past Medical History - Past Health History Medical/Surgical History: Denies Medical/Surgical History HEENT History: Reports: None Cardiovascular History: Reports: None Respiratory History: Reports: None Gastrointestinal History: Reports: Cholelithiasis, GERD Other Gastrointestinal History: positive gallstones Genitourinary History: Reports: None 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: , 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 Musculoskeletal History: Reports: None Neurological History: Reports: Migraines Psychiatric History: Reports: Depression Endocrine/Metabolic History: Reports: Other (See Below) Other Endocrine/Metabolic History: impaired glucose tolerance test Hematologic History: Reports: Anemia Immunologic History: Reports: None Oncologic (Cancer) History: Reports: None Dermatologic History: Reports: None - Infectious Disease History Infectious Disease History: Reports: Chicken Pox - Past Surgical History Head Surgeries/Procedures: Reports: None GI Surgical History: Reports: Cholecystectomy Female Surgical History: Reports: Section, Tubal Ligation Social & Family History - Family History Family Medical History: Noncontributory Cardiac: Reports: Hypertension Neurological: Reports: Migraines Endocrine/Metabolic: Reports: Diabetes, type II - Tobacco Use Smoking Status *Q: Current Every Day Smoker Years of Tobacco use: 10 Packs/Tins Daily: 5 - Caffeine Use Caffeine Use: Reports: Soda - Recreational Drug Use Recreational Drug Use: No - Living Situation & Occupation Living situation: Reports: with Significant Other, with Family Occupation: Unemployed ED ROS GENERAL - Review of Systems Review Of Systems: ROS reveals no pertinent complaints other than HPI. - Physical Exam Exam: See Below Exam Limited By: No Limitations General Appearance: Alert, WD/WN, Mild Distress Eye Exam: Bilateral Eye: EOMI, Normal Inspection, PERRL (3 brisk) Ears: Normal External Exam, Hearing Grossly Normal Nose: Normal Inspection Throat/Mouth: Normal Inspection, Normal Lips, Normal Teeth, Normal Gums, Normal Oropharynx, Normal Voice, No Airway Compromise Head Exam: Atraumatic, Normocephalic Neck: Limited Range of Motion, Tender Lateral, Tender Midline Respiratory/Chest: No Respiratory Distress, Lungs Clear, Normal Breath Sounds, No Accessory Muscle Use, Chest Non-Tender Cardiovascular: Normal Peripheral Pulses, Regular Rate, Rhythm, No Edema, No Gallop, No JVD, No Murmur, No Rub GI/Abdominal: Normal Bowel Sounds, Soft, Non-Tender, No Organomegaly, No Distention, No Abnormal Bruit, No Mass (Female) Exam: Deferred Rectal (Female) Exam: Deferred Neuro Exam (Abbreviated): Alert, Oriented, CN II-XII Intact, Normal Cognition, Normal Gait, Normal Reflexes, No Motor/Sensory Deficits Back Exam: Normal Inspection, Full Range of Motion Extremities: Normal Inspection, Normal Range of Motion, Non-Tender, No Pedal Edema, Normal Capillary Refill Psychiatric: Normal Affect, Normal Mood Skin Exam: Warm, Dry, Intact, Normal Color, No Rash Course - Vital Signs Last Recorded V/S: Last Vital Signs Temp 96.8 F 07/24/18 23:22 Pulse 88 07/24/18 23:22 Resp 18 07/24/18 23:22 BP 128/80 07/24/18 23:22 Pulse Ox 100 07/24/18 23:22 - Orders/Labs/Meds Orders: Active Orders 24 hr Category Date Time Status Peripheral IV Care [RC] . DIRECTED Care 07/24/18 23:56 Active CULTURE BLOOD [BC] Stat Lab 07/24/18 23:56 Received CULTURE BLOOD [BC] Stat Lab 07/24/18 23:56 Results CULTURE STREP A CONFIRMATION [RM] Stat Lab 06/05/19 23:20 Results STREP SCRN A RAPID W CULT CONF [RM] Stat Lab 07/24/18 23:20 Results Sodium Chloride 0.9% [Saline Flush] Med 07/24/18 23:53 Active 10 ml FLUSH ASDIRECTED PRN Blood Culture x2 Reflex Set [OM.PC] Stat Oth 07/24/18 23:55 Ordered Peripheral IV Insertion Adult [OM.PC] Stat Oth 07/24/18 23:53 Ordered Medication Orders Sodium Chloride (Saline Flush) 10 ml FLUSH ASDIRECTED PRN PRN Reason: Keep Vein Open Last Admin: 07/25/18 00:37 Dose: 10 ml Labs: Laboratory Tests 07/25/18 07/25/18 07/25/18 Range/Units 00:25 00:25 00:25 WBC 16.3 H (5.0-10.0) 10^3/uL RBC 4.56 (4.2-5.4) 10^6/uL Hgb 10.3 L (12.0-16.0) g/dL Hct 34.0 L (37.0-47.0) % MCV 74.6 L (80-100) fL MCH 22.6 L (27.0-34.0) pg MCHC 30.3 L (33.0-35.0) g/dL Plt Count 424 (150-450) 10^3/uL Neut % (Auto) 54.7 (42.2-75.2) % Lymph % (Auto) 35.9 (20.5-50.1) % [place] % (Auto) 7.4 (2-8) % Eos % (Auto) 1.7 (1.0-3.0) % Baso % (Auto) 0.3 (0.0-1.0) % PT (9.0-12.0) SEC INR (0.9-1.2) Sodium 137 (135-145) mmol/L Potassium 3.7 (3.6-5.0) mmol/L Chloride 106 (101-111) mmol/L Carbon Dioxide 23.0 (21.0-31.0) mmol/L Anion Gap 11.7 BUN 6 L (7-18) mg/dL Creatinine 0.6 (0.6-1.3) mg/dL Est Cr Clr Drug Dosing 115.47 mL/min Estimated GFR (MDRD) > 60 BUN/Creatinine Ratio 10.00 Glucose 96 (74-105) mg/dL Lactic Acid (0.5-2.2) mmol/L Calcium 8.1 L (8.4-10.2) mg/dl Magnesium 1.9 (1.8-2.5) mg/dL Total Bilirubin 0.2 (0.2-1.0) mg/dL AST 17 (10-42) IU/L ALT 21 (10-60) IU/L Alkaline Phosphatase 90 (42-121) IU/L C-Reactive Protein (0.0-1.3) mg/dL Total Protein 6.6 L (6.7-8.2) g/dl Albumin 3.5 (3.2-5.5) g/dl Globulin 3.1 Albumin/Globulin Ratio 1.13 Urine Color Yellow (YELLOW) Urine Appearance Clear (CLEAR) Urine pH 6.0 (5.0-9.0) Ur Specific [place] <= 1.005 (1.005-1.030) Urine Protein Negative (NEGATIVE) Urine Glucose (UA) Negative (NEGATIVE) Urine Ketones Negative (NEGATIVE) Urine Occult Blood Trace-intact H (NEGATIVE) Urine Nitrite Negative (NEGATIVE) Urine Bilirubin Negative (NEGATIVE) Urine Urobilinogen 0.2 (0.2-1.0) mg/dL Ur Leukocyte Esterase Negative (NEGATIVE) Urine RBC 0-5 /HPF Urine WBC 0-5 (0-5/HPF) /HPF Ur Epithelial Cells Few (NOT SEEN) /HPF Amorphous Sediment Rare (NOT SEEN) /HPF Urine Bacteria Occasional (0-FEW/HPF) /HPF Urine Mucus Rare (NOT SEEN) /LPF 07/25/18 07/25/18 07/25/18 Range/Units 00:25 00:25 00:25 WBC (5.0-10.0) 10^3/uL RBC (4.2-5.4) 10^6/uL Hgb (12.0-16.0) g/dL Hct (37.0-47.0) % MCV (80-100) fL MCH (27.0-34.0) pg MCHC (33.0-35.0) g/dL Plt Count (150-450) 10^3/uL Neut % (Auto) (42.2-75.2) % Lymph % (Auto) (20.5-50.1) % [place] % (Auto) (2-8) % Eos % (Auto) (1.0-3.0) % Baso % (Auto) (0.0-1.0) % PT 8.8 L (9.0-12.0) SEC INR 0.8 L (0.9-1.2) Sodium (135-145) mmol/L Potassium (3.6-5.0) mmol/L Chloride (101-111) mmol/L Carbon Dioxide (21.0-31.0) mmol/L Anion Gap BUN (7-18) mg/dL Creatinine (0.6-1.3) mg/dL Est Cr Clr Drug Dosing mL/min Estimated GFR (MDRD) BUN/Creatinine Ratio Glucose (74-105) mg/dL Lactic Acid 1.3 (0.5-2.2) mmol/L Calcium (8.4-10.2) mg/dl Magnesium (1.8-2.5) mg/dL Total Bilirubin (0.2-1.0) mg/dL AST (10-42) IU/L ALT (10-60) IU/L Alkaline Phosphatase (42-121) IU/L C-Reactive Protein 1.2 (0.0-1.3) mg/dL Total Protein (6.7-8.2) g/dl Albumin (3.2-5.5) g/dl Globulin Albumin/Globulin Ratio Urine Color (YELLOW) Urine Appearance (CLEAR) Urine pH (5.0-9.0) Ur Specific [place] (1.005-1.030) Urine Protein (NEGATIVE) Urine Glucose (UA) (NEGATIVE) Urine Ketones (NEGATIVE) Urine Occult Blood (NEGATIVE) Urine Nitrite (NEGATIVE) Urine Bilirubin (NEGATIVE) Urine Urobilinogen (0.2-1.0) mg/dL Ur Leukocyte Esterase (NEGATIVE) Urine RBC /HPF Urine WBC (0-5/HPF) /HPF Ur Epithelial Cells (NOT SEEN) /HPF Amorphous Sediment (NOT SEEN) /HPF Urine Bacteria (0-FEW/HPF) /HPF Urine Mucus (NOT SEEN) /LPF Rapid Strep: Negative Influenza A & B: Negative Meds: Medications Generic Name Dose Route Start Last Admin Trade Name Freq PRN Reason Stop Dose Admin Sodium Chloride 10 ml 07/24/18 23:53 07/25/18 00:37 Saline Flush FLUSH 10 ml ASDIRECTED PRN Administration Keep Vein Open Discontinued Medications Generic Name Dose Route Start Last Admin Trade Name Yang PRN Reason Stop Dose Admin Amoxicillin/Clavulanate Potassium 1 tab 07/25/18 01:11 07/25/18 01:19 Augmentin 875 Mg/125 Mg PO 07/25/18 01:12 1 tab ONETIME ONE Administration Butorphanol Tartrate 2 mg 07/25/18 01:32 07/25/18 01:42 Stadol IVPUSH 07/25/18 01:33 2 mg ONETIME ONE Administration Sodium Chloride 1,000 mls @ 999 mls/hr 07/24/18 23:57 07/25/18 00:37 Normal Saline IV 07/25/18 00:57 999 mls/hr .BOLUS ONE Administration Ketorolac Tromethamine 30 mg 07/25/18 01:03 07/25/18 01:14 Toradol IVPUSH 07/25/18 01:04 30 mg ONETIME ONE Administration Promethazine HCl 25 mg 07/25/18 01:32 07/25/18 01:43 Phenergan IM 07/25/18 01:33 25 mg ONETIME ONE Administration - Radiology Interpretation Free Text/Narrative:: Head CT wo contrast: FINDINGS: Brain: Normal. No hemorrhage. Unremarkable white matter. No mass effect. Ventricles: Normal. No hydrocephalus. Bones/joints: Normal. Skull base and overlying calvarium are intact. No lytic or osteosclerotic lesions. Sinuses: Sphenoid sinus opacification. Mastoid air cells: Visualized mastoid air cells are well aerated. No mastoid effusion. Soft tissues: Unremarkable. IMPRESSION: 1. No acute intracranial process. 2. Evidence for sphenoid sinusitis. Thank you for allowing us to participate in the care of your patient. Dictated and Authenticated by: Kojo Ortiz MD 07/25/2018 12:57 AM Central Time ([place] & [place]) See rad report - Re-Assessments/Exams Free Text/Narrative Re-Assessment/Exam: 07/25/18 02:38 Patient states pain is improved but not completely gone. States she is ready to go home and rest. Departure - Departure Time of Disposition: 02:39 Disposition: Home, Self-Care 01 Condition: Fair Clinical Impression: Sinusitis Qualifiers: Sinusitis location: sphenoidal Chronicity: acute Recurrence: not specified as recurrent Qualified Code(s): J01.30 - Acute sphenoidal sinusitis, unspecified Headache Qualifiers: Headache type: unspecified Headache chronicity pattern: acute headache Intractability: not intractable Qualified Code(s): R51 - Headache - Discharge Information *PRESCRIPTION DRUG MONITORING PROGRAM REVIEWED*: No *COPY OF PRESCRIPTION DRUG MONITORING REPORT IN PATIENT YVON: No Instructions: Sinusitis, Adult, [id number], How to Perform a Sinus Rinse, [id number], Upper Respiratory Infection, Adult, [id number], Sinus Headache, [id number] Forms: ED Department Discharge Additional Instructions: RX: Augmentin May use Tylenol and Ibuprofen as directed for pain/fever Drink plenty of water Follow up with your primary care facility Return to the ER with any worsening of symptoms - My Orders Last 24 Hours: My Active Orders 07/24/18 23:20 CULTURE STREP A CONFIRMATION [RM] Stat STREP SCRN A RAPID W CULT CONF [RM] Stat 07/24/18 23:53 Sodium Chloride 0.9% [Saline Flush] 10 ml FLUSH ASDIRECTED PRN Peripheral IV Insertion Adult [OM.PC] Stat 07/24/18 23:55 Blood Culture x2 Reflex Set [OM.PC] Stat 07/24/18 23:56 Peripheral IV Care [RC] . DIRECTED CULTURE BLOOD [BC] Stat CULTURE BLOOD [BC] Stat - Assessment/Plan Last 24 Hours: My Active Orders 07/24/18 23:20 CULTURE STREP A CONFIRMATION [RM] Stat STREP SCRN A RAPID W CULT CONF [RM] Stat 07/24/18 23:53 Sodium Chloride 0.9% [Saline Flush] 10 ml FLUSH ASDIRECTED PRN Peripheral IV Insertion Adult [OM.PC] Stat 07/24/18 23:55 Blood Culture x2 Reflex Set [OM.PC] Stat 07/24/18 23:56 Peripheral IV Care [RC] . DIRECTED CULTURE BLOOD [BC] Stat CULTURE BLOOD [BC] Stat
[2018-07-25 00:58] LABS: ANION GAP 11.7; CHLORIDE,CL 106 mmol/L (101-111); SODIUM,NA 137 mmol/L (135-145)
[2018-07-25] MEDS ORDERED: Ketorolac 30 MG/ML SDV IVPUSH ONE (01:03)
[2018-07-25] MEDS ORDERED: Amoxicillin/Clavulanate K 875-125 MG Tab PO ONE (01:11)
[2018-07-25] MEDS ORDERED: Promethazine 25 MG/ML SDV IM ONE (01:32)
[2018-07-25] MEDS ORDERED: Butorphanol 2 MG/ML SDV IVPUSH ONE (01:32)
[2018-07-25 02:45] VITALS: BP 127/76
== END 2018-07-25 02:49 | disposition home or self-care (01) ==
LOC: DL.ED 23:15
DX: J01.30 Acute sphenoidal sinusitis, unspecified (principal); F17.210 Nicotine dependence, cigarettes, uncomplicated; Z88.5 Allergy status to narcotic agent; Z79.899 Other long term (current) drug therapy
CPT/HCPCS: 36415; 70450; 80053; 81001; 83605; 83735; 85025; 85610; 86140; 87040; 87081; 87430; 87804; 96361; 96372; 96374; 96375; 99284; A9270; J0595; J1885; J2550; J7030

== ENCOUNTER 2018-11-07 00:06 | Emergency (ER) | payer MEDICAID ==
[2018-11-07 00:28] VITALS: PULSE 88
--- NOTE | 2018-11-07 00:32 | EDM.PDOC ---
"ED HPI GENERAL MEDICAL PROBLEM - General Chief Complaint: Abdominal Pain Stated Complaint: RIGHT SIDE STOMACH PAIN Time Seen by Provider: 11/07/18 00:30 Source of Information: Reports: Patient History Limitations: Reports: No Limitations - History of Present Illness INITIAL COMMENTS - FREE TEXT/NARRATIVE: ED ambulatory with c/o pain to RLQ onset this am , increased pain with walking, nausea no vomiting. No diarrhea, BM today, noticed lesser amounts this past week than normal. Prior hx f ovarian cyst, thinks Right removed in 2016. No fever, Feels chilled Treatments CHARGEBACK SPECIALIST: Reports: NSAIDS Lower Abdomen Pain Score (Numeric/FACES): 8 - Related Data Allergies Allergy/AdvReac Type Severity Reaction Status Date / Time codeine Allergy Hallucinati Verified 11/07/18 00:28 ons Home Meds: Home Meds . 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 Musculoskeletal History: Reports: None Neurological History: Reports: Migraines Psychiatric History: Reports: Depression Endocrine/Metabolic History: Reports: Other (See Below) Other Endocrine/Metabolic History: impaired glucose tolerance test Hematologic History: Reports: Anemia Immunologic History: Reports: None Oncologic (Cancer) History: Reports: None Dermatologic History: Reports: None - Infectious Disease History Infectious Disease History: Reports: Chicken Pox - Past Surgical History Head Surgeries/Procedures: Reports: None GI Surgical History: Reports: Cholecystectomy Female Surgical History: Reports: Section, Tubal Ligation Social & Family History - Family History Family Medical History: Noncontributory Cardiac: Reports: Hypertension Neurological: Reports: Migraines Endocrine/Metabolic: Reports: Diabetes, type II - Tobacco Use Smoking Status *Q: Current Every Day Smoker Years of Tobacco use: 12 Packs/Tins Daily: 0.3 Used Tobacco, but Quit: No Second Hand Smoke Exposure: Yes - Caffeine Use Caffeine Use: Reports: Coffee, Soda - Recreational Drug Use Recreational Drug Use: No - Living Situation & Occupation Living situation: Reports: with Significant Other, with Family Occupation: Unemployed ED ROS GENERAL - Review of Systems Review Of Systems: ROS reveals no pertinent complaints other than HPI. ED EXAM, GI/ABD - Physical Exam Exam: See Below Exam Limited By: No Limitations General Appearance: Alert, Mild Distress Eyes: Bilateral: Normal Appearance Ears: Normal External Exam, Hearing Grossly Normal Nose: Normal Inspection Throat/Mouth: Normal Inspection Head: Atraumatic Neck: Full Range of Motion Respiratory/Chest: No Respiratory Distress, Lungs Clear, Normal Breath Sounds Cardiovascular: Normal Peripheral Pulses, Regular Rate, Rhythm GI/Abdominal Exam: Normal Bowel Sounds, Soft, Tender (RLQ). No: Distended, Guarding, Rigid, Rebound Back Exam: No: CVA Tenderness (L), CVA Tenderness (R) Extremities: Normal Inspection Neurological: Alert, Oriented, Normal Cognition Psychiatric: Normal Affect Skin Exam: Warm, Dry, Intact, Normal Color Course - Vital Signs Last Recorded V/S: Last Vital Signs Temp 98.8 F 11/07/18 00:27 Pulse 88 11/07/18 00:27 Resp 18 11/07/18 00:27 BP Pulse Ox 100 11/07/18 00:27 - Orders/Labs/Meds Orders: Active Orders 24 hr Category Date Time Status UA RFX [facility] AND CULT IF INDIC [URIN] Urgent Lab 11/07/18 00:33 Ordered Labs: Laboratory Tests 11/07/18 11/07/18 Range/Units 00:44 00:44 WBC 15.5 H (5.0-10.0) 10^3/uL RBC 4.66 (4.2-5.4) 10^6/uL Hgb 10.7 L (12.0-16.0) g/dL Hct 35.3 L (37.0-47.0) % MCV 75.8 L (80-100) fL MCH 23.0 L (27.0-34.0) pg MCHC 30.3 L (33.0-35.0) g/dL Plt Count 443 (150-450) 10^3/uL Neut % (Auto) 46.1 (42.2-75.2) % Lymph % (Auto) 45.2 (20.5-50.1) % [place] % (Auto) 6.5 (2-8) % Eos % (Auto) 1.8 (1.0-3.0) % Baso % (Auto) 0.4 (0.0-1.0) % Sodium 140 (135-145) mmol/L Potassium 3.4 L (3.6-5.0) mmol/L Chloride 106 (101-111) mmol/L Carbon Dioxide 25.0 (21.0-31.0) mmol/L Anion Gap 12.4 BUN 7 (7-18) mg/dL Creatinine 0.7 (0.6-1.3) mg/dL Est Cr Clr Drug Dosing 98.98 mL/min Estimated GFR (MDRD) > 60 BUN/Creatinine Ratio 10.00 Glucose 104 (74-105) mg/dL Calcium 8.8 (8.4-10.2) mg/dl Total Bilirubin 0.4 (0.2-1.0) mg/dL AST 19 (10-42) IU/L ALT 20 (10-60) IU/L Alkaline Phosphatase 94 (42-121) IU/L Total Protein 7.2 (6.7-8.2) g/dl Albumin 3.8 (3.2-5.5) g/dl Globulin 3.4 Albumin/Globulin Ratio 1.12 Meds: Medications Discontinued Medications Generic Name Dose Route Start Last Admin Trade Name Freq PRN Reason Stop Dose Admin Hydrocodone Bitart/Acetaminophen 1 tab 11/07/18 02:37 11/07/18 02:45 [place] 325-10 Mg PO 11/07/18 02:38 1 tab ONETIME ONE Administration Sodium Chloride 1,000 mls @ 999 mls/hr 11/07/18 01:12 11/07/18 02:07 Normal Saline IV 11/07/18 02:12 999 mls/hr .BOLUS ONE Administration Iopamidol 100 ml 11/07/18 01:02 11/07/18 01:29 Isovue-300 (61%) IVPUSH 11/07/18 01:03 100 ml ONETIME ONE Administration Ketorolac Tromethamine 30 mg 11/07/18 01:55 11/07/18 02:08 Toradol IVPUSH 11/07/18 01:56 30 mg ONETIME ONE Administration Ondansetron HCl 4 mg 11/07/18 01:55 11/07/18 02:07 Zofran IV 11/07/18 01:56 4 mg ONETIME ONE Administration - Radiology Interpretation Free Text/Narrative:: [facility] Call: [phone] assistance Online chat: [email or web address] Name: ENRIQUE SHAW Age: 27Years F Date: 11/07/2018 SSN: -- : 1990 Study: CT ABDOMEN/PELVIS W Requesting Physician: RUPERT GARCIA Images: [id number] Addl Studies: Provided Clinical History: WBC 15,000, Nausea Contrast: With Contrast Medium: Iso 300 Contrast Amount: 100 mL Contrast Method: RAC 18g Page 1 of 2 PROCEDURE INFORMATION: Exam: CT Abdomen and Pelvis With Contrast Exam date and time: 11/07/2018 1:18 AM Clinical history: 27 years old, female; Abdominal pain; Localized; Right lower quadrant (rlq); Patient HX: Cholecystectomy, tubal ligation, PT states one ovary removed. ; Additional info: Wbc 15,000, nausea TECHNIQUE: Imaging protocol: Computed tomography of the abdomen and pelvis with intravenous contrast. Radiation optimization: All CT scans at this facility use at least one of these dose optimization techniques: automated exposure control; mA and/or kV adjustment per patient size (includes targeted exams where dose is matched to clinical indication); or iterative reconstruction. Contrast material: ISO 300; Contrast volume: 100 ml; Contrast route: RAC 18G; COMPARISON: CT Abdomen Pelvis w Cont 11/30/2017 12:50 AM FINDINGS: Liver: No suspicious lesions. Gallbladder and bile ducts: Cholecystectomy. Pancreas: Unremarkable. No ductal dilation. Spleen: No suspicious lesions. Adrenals: No suspicious nodule. Kidneys and ureters: No hydro. No suspicious lesions. Stomach and bowel: No inflammed or dilated loops. Appendix: No evidence of appendicitis. Intraperitoneal space: No free air. No significant fluid collection. Vasculature: Unremarkable. No acute findings Lymph nodes: Unremarkable. ENRIQUE SHAW | Final Radiology Report CONFIDENTIALITY STATEMENT This report is intended only for use by the referring physician, and only in accordance with law. If you received this in error, call [phone]. Page 2 of 2 Bladder: Unremarkable as visualized. Reproductive: 2.8 cm high density right ovarian cyst. Bones/joints: Unremarkable. No acute fracture. Soft tissues: Small fat containing umbilical hernia. IMPRESSION: 2.8 cm high density right ovarian cyst is likely a hemorrhagic cyst. I would suggest a 6 week mid cycle followup pelvic ultrasound. Small fat containing umbilical hernia. Thank you for allowing us to participate in the care of your patient. Dictated and Authenticated by: Kenny Bermudez MD 11/07/2018 1:48 AM Central Time ( & [facility] Final Radiology Report Call: [phone] assistance Online chat: [email or web address] Name: ENRIQUE SHAW Age: 27Years F Date: 11/07/2018 SSN: -- : 1990 Study: XR ABDOMEN 1 VIEW Requesting Physician: RUPERT GARCIA Images: 2 Addl Studies: Provided Clinical History: Contrast: Contrast Medium: Contrast Amount: Contrast Method: CONFIDENTIALITY STATEMENT This report is intended only for use by the referring physician, and only in accordance with law. If you received this in error, call [phone]. Page 1 of 1 PROCEDURE INFORMATION: Exam: XR Abdomen, 1 View Exam date and time: 11/07/2018 12:31 AM Clinical history: 27 years old, female; Abdominal pain; Generalized; Patient HX : Cholecystectomy, PT states primarily lower abdomen pain TECHNIQUE: Imaging protocol: XR of the abdomen. Views: Frontal supine view of the abdomen. 1 View. COMPARISON: No relevant prior studies available. FINDINGS: Gastrointestinal tract: Stool volume is normal. There is no sign of bowel obstruction. Intraperitoneal space: Surgical clips are present in the right upper quadrant, consistent with previous cholecystectomy. Bones/joints: There is a small midline S1 spinal fusion defect. IMPRESSION: 1. Prior cholecystectomy and other nonacute findings as described above. 2. No sign of acute abnormality in the abdomen. Thank you for allowing us to participate in the care of your patient. Dictated and Authenticated by: Rigo Cisneros DO 11/07/2018 1:01 AM Central Time ( & [place]) Departure - Departure Time of Disposition: 02:03 Disposition: Home, Self-Care 01 Condition: Good Clinical Impression: Ovarian cyst, right - Discharge Information *PRESCRIPTION DRUG MONITORING PROGRAM REVIEWED*: No *COPY OF PRESCRIPTION DRUG MONITORING REPORT IN PATIENT YVON: No Instructions: Ovarian Cyst, [id number] Forms: ED Department Discharge Additional Instructions: No heavy lifting 24 hours follow up with primary care Ultrasound 4-6 weeks ibuprofen 600mg alternate with tylenol 650mg every 4 hours as needed for discomfort - My Orders Last 24 Hours: My Active Orders 11/07/18 00:33 UA RFX [facility] AND CULT IF INDIC [URIN] Urgent - Assessment/Plan Last 24 Hours: My Active Orders 11/07/18 00:33 UA RFX [facility] AND CULT IF INDIC [URIN] Urgent"
[2018-11-07] MEDS ORDERED: Iopamidol 612 MG/ML 100 ML Bottle IVPUSH ONE (01:02)
[2018-11-07 01:07] LABS: ANION GAP 12.4; CHLORIDE,CL 106 mmol/L (101-111); SODIUM,NA 140 mmol/L (135-145)
[2018-11-07] MEDS ORDERED: Sodium Chloride 0.9% 1,000 ML IV ONE (01:12)
[2018-11-07] MEDS ORDERED: Ketorolac 30 MG/ML SDV IVPUSH ONE (01:55)
[2018-11-07] MEDS ORDERED: Ondansetron 4 MG/2 ML SDV IV ONE (01:55)
[2018-11-07] MEDS ORDERED: Acetaminophen/HYDROcodone 325-10 MG Tab PO ONE (02:37)
== END 2018-11-07 03:00 | disposition home or self-care (01) ==
LOC: DL.ED 00:06
DX: N83.201 Unspecified ovarian cyst, right side (principal); F17.210 Nicotine dependence, cigarettes, uncomplicated; Z90.49 Acquired absence of other specified parts of digestive tract; Z98.51 Tubal ligation status; Z88.5 Allergy status to narcotic agent
CPT/HCPCS: 36415; 74018; 74177; 80053; 85025; 96361; 96374; 96375; 99284; A9270; J1885; J2405; J7030; Q9967

== ENCOUNTER 2018-11-25 22:07 | Emergency (ER) | payer MEDICAID ==
[2018-11-25 22:47] VITALS: BP 132/75; PULSE 73
[2018-11-26] MEDS ORDERED: Iopamidol 612 MG/ML 100 ML Bottle IVPUSH ONE (00:15)
[2018-11-26] MEDS ORDERED: Ondansetron 4 MG/2 ML SDV IV ONE (00:16)
[2018-11-26] MEDS ORDERED: HYDROmorphone 1 MG/ML Syringe IVPUSH ONE ×2 (00:16→01:23)
[2018-11-26] MEDS ORDERED: Sodium Chloride 0.9% 1,000 ML IV ONE (00:16)
[2018-11-26 01:09] LABS: ANION GAP 10.8; CHLORIDE,CL 105 mmol/L (101-111); SODIUM,NA 137 mmol/L (135-145)
[2018-11-26] MEDS ORDERED: fentaNYL 100 MCG/2 ML SDV IVPUSH ONE ×2 (01:57→04:24)
--- NOTE | 2018-11-26 02:08 | EDM.PDOC ---
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 Normal bowel movements, Chills no fever. HEENT no c/o Eating and drinking ok. 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 Musculoskeletal History: Reports: None Neurological History: Reports: Migraines Psychiatric History: Reports: Depression Endocrine/Metabolic History: Reports: Other (See Below) Other Endocrine/Metabolic History: impaired glucose tolerance test Hematologic History: Reports: Anemia Immunologic History: Reports: None Oncologic (Cancer) History: Reports: None Dermatologic History: Reports: None - Infectious Disease History Infectious Disease History: Reports: Chicken Pox - Past Surgical History Head Surgeries/Procedures: Reports: None GI Surgical History: Reports: Cholecystectomy Female Surgical History: Reports: Section, Hysterectomy, Tubal Ligation Social & Family History - Family History Family Medical History: Noncontributory Cardiac: Reports: Hypertension Neurological: Reports: Migraines Endocrine/Metabolic: Reports: Diabetes, type II - Tobacco Use Smoking Status *Q: Current Every Day Smoker Years of Tobacco use: 12 Packs/Tins Daily: 0.2 - Caffeine Use Caffeine Use: Reports: Soda - Recreational Drug Use Recreational Drug Use: No - Living Situation & Occupation Living situation: Reports: with Significant Other, with Family Occupation: Unemployed ED ROS GENERAL - Review of Systems Review Of Systems: ROS reveals no pertinent complaints other than HPI. ED EXAM, GI/ABD - Physical Exam Exam: See Below Exam Limited By: No Limitations General Appearance: Alert, Moderate Distress Eyes: Bilateral: EOMI Ears: Normal External Exam, Normal TMs Nose: Normal Inspection Throat/Mouth: Normal Inspection, Normal Oropharynx Head: Atraumatic, Normocephalic Neck: Normal Inspection Respiratory/Chest: No Respiratory Distress, Lungs Clear, Normal Breath Sounds Cardiovascular: Normal Peripheral Pulses, Regular Rate, Rhythm GI/Abdominal Exam: Normal Bowel Sounds, Soft, Tender Back Exam: Normal Inspection Extremities: Normal Inspection, No Pedal Edema Neurological: Alert, Oriented, Normal Cognition Psychiatric: Tearful Skin Exam: Warm, Dry, Wound/Incision (surgical sites, below umbilicus and biateral lower abdomen, CDI. ) Course - Vital Signs Last Recorded V/S: Last Vital Signs Temp 98.0 F 11/25/18 22:39 Pulse 73 11/25/18 22:39 Resp 16 11/25/18 22:39 BP 132/75 11/25/18 22:39 Pulse Ox 98 11/25/18 22:39 - Orders/Labs/Meds Orders: Active Orders 24 hr Category Date Time Status Abdomen Pelvis w Cont [CT] Urgent Exams 11/26/18 00:14 Taken Labs: Laboratory Tests 11/26/18 11/26/18 11/26/18 Range/Units 00:38 00:38 00:41 WBC 12.1 H (5.0-10.0) 10^3/uL RBC 4.21 (4.2-5.4) 10^6/uL Hgb 9.7 L (12.0-16.0) g/dL Hct 32.0 L (37.0-47.0) % MCV 76.0 L (80-100) fL MCH 23.0 L (27.0-34.0) pg MCHC 30.3 L (33.0-35.0) g/dL Plt Count 434 (150-450) 10^3/uL Neut % (Auto) 46.9 (42.2-75.2) % Lymph % (Auto) 42.4 (20.5-50.1) % [place] % (Auto) 7.6 (2-8) % Eos % (Auto) 2.6 (1.0-3.0) % Baso % (Auto) 0.5 (0.0-1.0) % Sodium 137 (135-145) mmol/L Potassium 3.8 (3.6-5.0) mmol/L Chloride 105 (101-111) mmol/L Carbon Dioxide 25.0 (21.0-31.0) mmol/L Anion Gap 10.8 BUN 6 L (7-18) mg/dL Creatinine 0.7 (0.6-1.3) mg/dL Est Cr Clr Drug Dosing 98.98 mL/min Estimated GFR (MDRD) > 60 BUN/Creatinine Ratio 8.57 Glucose 103 (74-105) mg/dL Calcium 7.9 L (8.4-10.2) mg/dl Total Bilirubin 0.3 (0.2-1.0) mg/dL AST 20 (10-42) IU/L ALT 19 (10-60) IU/L Alkaline Phosphatase 74 (42-121) IU/L Total Protein 6.4 L (6.7-8.2) g/dl Albumin 3.5 (3.2-5.5) g/dl Globulin 2.9 Albumin/Globulin Ratio 1.21 Urine Color Light yellow (YELLOW) Urine Appearance Clear (CLEAR) Urine pH 7.5 (5.0-9.0) Ur Specific [place] 1.015 (1.005-1.030) Urine Protein Negative (NEGATIVE) Urine Glucose (UA) Negative (NEGATIVE) Urine Ketones Negative (NEGATIVE) Urine Occult Blood Negative (NEGATIVE) Urine Nitrite Negative (NEGATIVE) Urine Bilirubin Negative (NEGATIVE) Urine Urobilinogen 0.2 (0.2-1.0) mg/dL Ur Leukocyte Esterase Negative (NEGATIVE) Meds: Medications Discontinued Medications Generic Name Dose Route Start Last Admin Trade Name Donellq PRN Reason Stop Dose Admin Fentanyl 50 mcg 11/26/18 01:57 11/26/18 02:04 Sublimaze IVPUSH 11/26/18 01:58 50 mcg ONETIME ONE Administration Fentanyl 50 mcg 11/26/18 04:24 11/26/18 04:46 Sublimaze IVPUSH 11/26/18 04:25 50 mcg ONETIME ONE Administration Hydromorphone HCl 1 mg 11/26/18 00:16 11/26/18 00:45 Dilaudid IVPUSH 11/26/18 00:17 1 mg ONETIME ONE Administration Hydromorphone HCl 1 mg 11/26/18 01:23 11/26/18 01:30 Dilaudid IVPUSH 11/26/18 01:24 1 mg ONETIME ONE Administration Sodium Chloride 1,000 mls @ 999 mls/hr 11/26/18 00:16 11/26/18 00:45 Normal Saline IV 11/26/18 01:16 999 mls/hr .BOLUS ONE Administration Iopamidol 100 ml 11/26/18 00:15 11/26/18 01:33 Isovue-300 (61%) IVPUSH 11/26/18 00:16 100 ml ONETIME ONE Administration Ondansetron HCl 4 mg 11/26/18 00:16 11/26/18 00:45 Zofran IV 11/26/18 00:17 4 mg ONETIME ONE Administration - Radiology Interpretation Free Text/Narrative:: [facility] Final Radiology Report Call: [phone] assistance Online chat: [email or web address] Name: ENRIQUE SHAW Age: 27Years F Date: 11/26/2018 SSN: -- : [id number] Study: CT ABDOMEN/PELVIS W Requesting Physician: RUPERT GARCIA Images: [id number] Addl Studies: Provided Clinical History: Contrast: With Contrast Medium: Iso 300 Contrast Amount: 100 mL Contrast Method: RAC 18g Page 1 of 2 PROCEDURE INFORMATION: Exam: CT Abdomen And Pelvis With Contrast Exam date and time: 11/26/2018 1:19 AM Clinical history: 27 years old, female; Other: Severe abdomen pain - lap hyst ; Prior surgery; Surgery date: 3-7 days post-operative; Surgery type: Hysterectomy; Patient HX: History of smoking, cholecystectomy, one ovary TECHNIQUE: Imaging protocol: Computed tomography of the abdomen and pelvis with intravenous contrast. Radiation optimization: All CT scans at this facility use at least one of these dose optimization techniques: automated exposure control; mA and/or kV adjustment per patient size (includes targeted exams where dose is matched to clinical indication); or iterative reconstruction. Contrast material: ISO 300; Contrast volume: 100 ml; Contrast route: RAC 18G; COMPARISON: CT Abdomen Pelvis w Cont 11/07/2018 1:18 AM FINDINGS: Lungs: Interval appearance of bilateral dependent atelectasis. Liver: Still no apparent liver disease. Gallbladder and bile ducts: Previous cholecystectomy again evident. Still no biliary ductal dilatation. Pancreas: Unremarkable. No ductal dilation. Spleen: Still no splenomegaly. Adrenals: Still no adrenal mass. Still no adrenal mass. Kidneys and ureters: Unremarkable. No hydronephrosis. Stomach and bowel: Unremarkable. No obstruction. No apparent mucosal thickening. Appendix: Normal appendix. ENRIQUE SHAW | Final Radiology Report CONFIDENTIALITY STATEMENT This report is intended only for use by the referring physician, and only in accordance with law. If you received this in error, call [phone]. Page 2 of 2 Intraperitoneal space: No free air. Interval appearance of a mild amount of fluid in the cul-de-sac containing a density of 31 HU posteriorly and water density anteriorly with an apparent fluid-fluid level. Vasculature: Continued mild right ovarian varix. Interval slight enlargement of the inferior left ovarian vein and appearance of minimal haziness in the fat around this area. Bilateral pelvic varices again apparent. Still no aortic aneurysm. Lymph nodes: Interval slight decrease in size of a right external iliac node, with its short axis diameter now normal. No interval suspicious nodes. Bladder: Unremarkable as visualized. Reproductive: Interval hysterectomy. Absence of the left ovary still suspected. Bones/joints: Stable minimal compression fractures. Soft tissues: Small periumbilical hernia containing fat as before. Interval appearance of areas of haziness in the subcutaneous fat of the lower abdominal wall probably related to the recent surgery. IMPRESSION: 1. Interval hysterectomy possibly accounting for the interval hemorrhagic fluid in the pelvis. Possible interval thrombophlebitis of the left ovarian vein. Bilateral pelvic varices and a mild right ovarian varix again evident. 2. Interval bilateral dependent atelectasis. Other findings detailed above. Thank you for allowing us to participate in the care of your patient. Dictated and Authenticated by: Jessica Frost MD 11/26 - Re-Assessments/Exams Free Text/Narrative Re-Assessment/Exam: 11/26/18 04:26 Dr Rusty Le, [facility] accepting patient for transfer for further evaluation. Tx via [facility]. Departure - Departure Time of Disposition: 04:45 Disposition: DC/Tfer to Acute Hospital 02 Condition: Good Clinical Impression: S/P laparoscopic hysterectomy Abdominal pain Qualifiers: Abdominal location: epigastric Qualified Code(s): R10.13 - Epigastric pain - Discharge Information Forms: ED Department Discharge - My Orders Last 24 Hours: My Active Orders 11/26/18 00:14 Abdomen Pelvis w Cont [CT] Urgent - Assessment/Plan Last 24 Hours: My Active Orders 11/26/18 00:14 Abdomen Pelvis w Cont [CT] Urgent"
== END 2018-11-26 04:50 ==
LOC: DL.ED 22:07
DX: R10.13 Epigastric pain (principal); F17.210 Nicotine dependence, cigarettes, uncomplicated; Z90.710 Acquired absence of both cervix and uterus; Z88.5 Allergy status to narcotic agent
CPT/HCPCS: 36415; 74177; 80053; 81003; 85025; 96361; 96374; 96375; 96376; 99284; J1170; J2405; J3010; J7030; Q9967

== ENCOUNTER 2019-01-30 22:13 | Emergency (ER) | payer MEDICAID ==
[2019-01-30 23:24] VITALS: BP 134/68; PULSE 111
[2019-01-31] MEDS ORDERED: Ondansetron 4 MG/2 ML SDV IV ONE (00:23)
[2019-01-31] MEDS ORDERED: diphenhydrAMINE 50 MG/ML SDV IVPUSH ONE (00:23)
[2019-01-31] MEDS ORDERED: Sodium Chloride 0.9% 1,000 ML IV ONE (00:23)
[2019-01-31] MEDS ORDERED: Sodium Chloride 0.9% 10 ML Syringe FLUSH PRN (00:23)
[2019-01-31] MEDS ORDERED: HYDROmorphone 0.5 MG/0.5 ML Syringe IVPUSH ONE (00:23)
[2019-01-31 01:07] LABS: ANION GAP 11.9; CHLORIDE,CL 106 mmol/L (101-111); SODIUM,NA 136 mmol/L (135-145)
[2019-01-31] MEDS ORDERED: Butorphanol 2 MG/ML SDV IVPUSH ONE (01:54)
[2019-01-31] MEDS ORDERED: Promethazine 25 MG/ML SDV IM ONE (01:54)
--- NOTE | 2019-01-31 02:05 | EDM.PDOC ---
ED HPI GENERAL MEDICAL PROBLEM - General Chief Complaint: Headache Stated Complaint: MIGRAINE FOR 5 DAYS Time Seen by Provider: 01/31/19 00:14 Source of Information: Reports: Patient, Family, RN, RN Notes Reviewed History Limitations: Reports: No Limitations - History of Present Illness INITIAL COMMENTS - FREE TEXT/NARRATIVE: patient presents to ER with complaint of migraine headache that has been present for 5 days. Patient states she has not been able to get into her primary care provider in the clinic. Patient states she does have aura, is very sensitive to light and sound, and has some blurred vision with standing up, as well as nausea. Denies any vomiting. Patient states her headaches tend to get worse when her hemoglobin and her iron are low. Patient states she had a hysterectomy in November, and felt the headaches had improved. Patient states she is unable to take oral iron, and has been working with her primary provider on another regimen. Onset: Gradual Onset Date: 01/25/19 Duration: Constant, Heavy Location: Reports: Head Quality: Reports: Ache, Throbbing Severity: Severe Improves with: Reports: None Worsens with: Reports: None Associated Symptoms: Reports: Headaches, Loss of Appetite, Nausea/Vomiting Lower Abdomen Pain Score (Numeric/FACES): 8 - Related Data Allergies Allergy/AdvReac Type Severity Reaction Status Date / Time codeine Allergy Hallucinati Verified 11/25/18 22:38 ons Home Meds: Home Meds . 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 Musculoskeletal History: Reports: None Neurological History: Reports: Migraines Psychiatric History: Reports: Depression Endocrine/Metabolic History: Reports: Other (See Below) Other Endocrine/Metabolic History: impaired glucose tolerance test Hematologic History: Reports: Anemia Immunologic History: Reports: None Oncologic (Cancer) History: Reports: None Dermatologic History: Reports: None - Infectious Disease History Infectious Disease History: Reports: Chicken Pox - Past Surgical History Head Surgeries/Procedures: Reports: None GI Surgical History: Reports: Cholecystectomy Female Surgical History: Reports: Section, Hysterectomy, Tubal Ligation Social & Family History - Family History Family Medical History: Noncontributory Cardiac: Reports: Hypertension Neurological: Reports: Migraines Endocrine/Metabolic: Reports: Diabetes, type II - Tobacco Use Smoking Status *Q: Current Every Day Smoker Years of Tobacco use: 15 Packs/Tins Daily: 0.3 Used Tobacco, but Quit: No Second Hand Smoke Exposure: Yes - Caffeine Use Caffeine Use: Reports: Soda - Recreational Drug Use Recreational Drug Use: No - Living Situation & Occupation Living situation: Reports: with Significant Other, with Family Occupation: Unemployed ED ROS GENERAL - Review of Systems Review Of Systems: Comprehensive ROS is negative, except as noted in HPI. - Physical Exam Exam: See Below Exam Limited By: No Limitations General Appearance: Alert, WD/WN, Moderate Distress Eye Exam: Bilateral Eye: EOMI, Normal Inspection, Vision Changes (states blurred vision tt times when standing up) Ears: Normal External Exam, Hearing Grossly Normal Nose: Normal Inspection Throat/Mouth: Normal Inspection, Normal Voice, No Airway Compromise Head Exam: Atraumatic, Normocephalic Neck: Normal Inspection, Supple, Full Range of Motion, Tender Lateral Respiratory/Chest: No Respiratory Distress, Lungs Clear, Normal Breath Sounds, No Accessory Muscle Use, Chest Non-Tender Cardiovascular: Normal Peripheral Pulses, Regular Rate, Rhythm, No Edema, No Gallop, No JVD, No Murmur, No Rub GI/Abdominal: Normal Bowel Sounds, Soft, Non-Tender (Female) Exam: Deferred Rectal (Female) Exam: Deferred Neuro Exam (Abbreviated): Alert, Oriented, CN II-XII Intact, Normal Cognition, Normal Gait, Normal Reflexes, No Motor/Sensory Deficits Back Exam: Normal Inspection, Full Range of Motion, NT Extremities: Normal Inspection, Normal Range of Motion, Non-Tender, No Pedal Edema, Normal Capillary Refill Psychiatric: Normal Affect, Normal Mood Skin Exam: Warm, Dry, Intact, No Rash, Pallor Course - Vital Signs Last Recorded V/S: Last Vital Signs Temp 98.8 F 01/30/19 23:18 Pulse 111 H 01/30/19 23:18 Resp 18 01/30/19 23:18 BP 134/68 01/30/19 23:18 Pulse Ox 100 01/30/19 23:18 - Orders/Labs/Meds Orders: Active Orders 24 hr Category Date Time Status Peripheral IV Care [RC] . DIRECTED Care 01/31/19 00:24 Active Peripheral IV Insertion Adult [OM.PC] Stat Oth 01/31/19 00:23 Ordered Labs: Laboratory Tests 01/31/19 01/31/19 Range/Units 00:35 00:35 WBC 12.7 H (5.0-10.0) 10^3/uL RBC 4.25 (4.2-5.4) 10^6/uL Hgb 9.2 L (12.0-16.0) g/dL Hct 30.8 L (37.0-47.0) % MCV 72.5 L D (80-100) fL MCH 21.6 L (27.0-34.0) pg MCHC 29.9 L (33.0-35.0) g/dL Plt Count 427 (150-450) 10^3/uL Neut % (Auto) 39.9 L (42.2-75.2) % Lymph % (Auto) 50.1 (20.5-50.1) % [place] % (Auto) 8.0 (2-8) % Eos % (Auto) 1.4 (1.0-3.0) % Baso % (Auto) 0.6 (0.0-1.0) % Sodium 136 (135-145) mmol/L Potassium 3.9 (3.6-5.0) mmol/L Chloride 106 (101-111) mmol/L Carbon Dioxide 22.0 (21.0-31.0) mmol/L Anion Gap 11.9 BUN 10 (7-18) mg/dL Creatinine 0.7 (0.6-1.3) mg/dL Est Cr Clr Drug Dosing 98.09 mL/min Estimated GFR (MDRD) > 60 BUN/Creatinine Ratio 14.28 Glucose 95 (74-105) mg/dL Calcium 8.6 (8.4-10.2) mg/dl Total Bilirubin 0.5 (0.2-1.0) mg/dL AST 18 (10-42) IU/L ALT 17 (10-60) IU/L Alkaline Phosphatase 77 (42-121) IU/L Total Protein 6.6 L (6.7-8.2) g/dl Albumin 3.7 (3.2-5.5) g/dl Globulin 2.9 Albumin/Globulin Ratio 1.28 Meds: Medications Discontinued Medications Generic Name Dose Route Start Last Admin Trade Name Freq PRN Reason Stop Dose Admin Butorphanol Tartrate 2 mg 01/31/19 01:54 01/31/19 02:39 Stadol IVPUSH 01/31/19 01:55 2 mg ONETIME ONE Administration Diphenhydramine HCl 25 mg 01/31/19 00:23 01/31/19 00:42 Benadryl IVPUSH 01/31/19 00:24 25 mg ONETIME ONE Administration Hydromorphone HCl 0.5 mg 01/31/19 00:23 01/31/19 00:43 Dilaudid IVPUSH 01/31/19 00:24 0.5 mg ONETIME ONE Administration Sodium Chloride 1,000 mls @ 999 mls/hr 01/31/19 00:23 01/31/19 00:41 Normal Saline IV 01/31/19 01:23 999 mls/hr .BOLUS ONE Administration Ondansetron HCl 4 mg 01/31/19 00:23 01/31/19 00:41 Zofran IV 01/31/19 00:24 4 mg ONETIME ONE Administration Promethazine HCl 25 mg 01/31/19 01:54 01/31/19 02:38 Phenergan IM 01/31/19 01:55 25 mg ONETIME ONE Administration Sodium Chloride 10 ml 01/31/19 00:23 01/31/19 00:41 Saline Flush FLUSH 10 ml ASDIRECTED PRN Administration Keep Vein Open Departure - Departure Time of Disposition: 03:06 Disposition: Home, Self-Care 01 Condition: Fair Clinical Impression: Migraine Qualifiers: Migraine type: with aura Status migrainosus presence: with status migrainosus Intractability: intractable Qualified Code(s): G43.111 - Migraine with aura, intractable, with status migrainosus Anemia Qualifiers: Anemia type: unspecified type Qualified Code(s): D64.9 - Anemia, unspecified - Discharge Information *PRESCRIPTION DRUG MONITORING PROGRAM REVIEWED*: No *COPY OF PRESCRIPTION DRUG MONITORING REPORT IN PATIENT YVON: No Instructions: Migraine Headache, Thiz-yr-Ajoz, Anemia Referrals: PCP,None [Primary Care Provider] - Forms: ED Department Discharge Additional Instructions: drink plenty of fluids May use ibuprofen and/or Tylenol as directed for pain Follow-up with Dr. Ross in the morning regarding anemia Rest in a dark room Sepsis Event Note - Evaluation Sepsis Screening Result: No Definite Risk - Focused Exam Vital Signs: Vital Signs Temp Pulse Resp BP Pulse Ox 01/30/19 23:18 98.8 F 111 H 18 134/68 100 Date Exam was Performed: 01/31/19 Time Exam was Performed: 04:34 - My Orders Last 24 Hours: My Active Orders 01/31/19 00:23 Peripheral IV Insertion Adult [OM.PC] Stat 01/31/19 00:24 Peripheral IV Care [RC] . DIRECTED - Assessment/Plan Last 24 Hours: My Active Orders 01/31/19 00:23 Peripheral IV Insertion Adult [OM.PC] Stat 01/31/19 00:24 Peripheral IV Care [RC] . DIRECTED
== END 2019-01-31 03:23 | disposition home or self-care (01) ==
LOC: DL.ED 22:13
DX: G43.111 Migraine with aura, intractable, with status migrainosus (principal); D64.9 Anemia, unspecified; F17.210 Nicotine dependence, cigarettes, uncomplicated; Z88.5 Allergy status to narcotic agent
CPT/HCPCS: 36415; 80053; 85025; 96361; 96372; 96374; 96375; 99284; J0595; J1170; J1200; J2405; J2550; J7030

== ENCOUNTER 2019-02-24 23:11 | Emergency (ER) | payer MEDICAID ==
[2019-02-24] MEDS ORDERED: Acetaminophen/HYDROcodone 325-10 MG Tab PO ONE (23:12)
[2019-02-24 23:18] VITALS: BP 120/81; PULSE 65
[2019-02-24] MEDS ORDERED: Sodium Chloride 0.9% 10 ML Syringe FLUSH PRN (23:56)
[2019-02-24] MEDS ORDERED: HYDROmorphone 1 MG/ML Syringe IVPUSH ONE (23:56)
[2019-02-24] MEDS ORDERED: Ondansetron 4 MG/2 ML SDV IVPUSH ONE (23:56)
--- NOTE | 2019-02-25 00:03 | EDM.PDOC ---
ED HPI GENERAL MEDICAL PROBLEM - General Chief Complaint: General Stated Complaint: TOOTH PROBLEMS Time Seen by Provider: 02/24/19 23:50 Source of Information: Reports: Patient History Limitations: Reports: No Limitations - History of Present Illness INITIAL COMMENTS - FREE TEXT/NARRATIVE: This 28 yo female reports to the ED due to dental pain. The patient reports she had an infected tooth pulled this morning (at 0800) and has been in pain since that time. The patient reports she was advised to take Tylenol (500 mg) and ibuprofen (400 mg) every 2 hours for her pain, but has had no pain relief. The patient's reports he did call the dentist this afternoon and was advised to report to the emergency department if her pain got too bad. Onset: Today Duration: Constant Location: Reports: Other (Right upper dental pain) Quality: Reports: Ache, Sharp, Stabbing Severity: Moderate Improves with: Reports: None Worsens with: Reports: None Context: Reports: Activity, Other (dental extraction earlier today) Right Upper Oral/Mouth Pain Score (Numeric/FACES): 9 - Related Data Allergies Allergy/AdvReac Type Severity Reaction Status Date / Time codeine Allergy Hallucinati Verified 11/25/18 22:38 ons procaine [From Novocain] Allergy Airway Verified 02/24/19 23:19 Tightness Home Meds: Home Meds . 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: Reports: , Spontaneous Musculoskeletal History: Reports: None Neurological History: Reports: Migraines Psychiatric History: Reports: Depression Endocrine/Metabolic History: Reports: Other (See Below) Other Endocrine/Metabolic History: impaired glucose tolerance test Hematologic History: Reports: Anemia Immunologic History: Reports: None Oncologic (Cancer) History: Reports: None Dermatologic History: Reports: None - Infectious Disease History Infectious Disease History: Reports: Chicken Pox - Past Surgical History Head Surgeries/Procedures: Reports: None HEENT Surgical History: Reports: Oral Surgery GI Surgical History: Reports: Cholecystectomy Female Surgical History: Reports: Section, Hysterectomy, Tubal Ligation Social & Family History - Family History Family Medical History: Noncontributory Cardiac: Reports: Hypertension Neurological: Reports: Migraines Endocrine/Metabolic: Reports: Diabetes, type II - Tobacco Use Smoking Status *Q: Light Tobacco Smoker Years of Tobacco use: 10 Packs/Tins Daily: 0.5 - Caffeine Use Caffeine Use: Reports: None - Recreational Drug Use Recreational Drug Use: No - Living Situation & Occupation Living situation: Reports: with Significant Other, with Family Occupation: Unemployed ED ROS GENERAL - Review of Systems Review Of Systems: Comprehensive ROS is negative, except as noted in HPI. ED EXAM, GENERAL - Physical Exam Exam: See Below Exam Limited By: No Limitations General Appearance: Alert, WD/WN, Moderate Distress Eye Exam: Bilateral Eye: EOMI, Normal Inspection, PERRL Ears: Normal External Exam, Normal Canal, Hearing Grossly Normal, Normal TMs Nose: Normal Inspection, Normal Mucosa, No Blood Throat/Mouth: Normal Inspection, Normal Lips, Normal Teeth, Normal Gums, Normal Oropharynx, Normal Voice, No Airway Compromise, Other (right upper posterior dental extraction with mild surrounding erythema) Head: Atraumatic, Normocephalic Neck: Normal Inspection, Supple, Non-Tender, Full Range of Motion Respiratory/Chest: No Respiratory Distress, Lungs Clear, Normal Breath Sounds, No Accessory Muscle Use, Chest Non-Tender Cardiovascular: Normal Peripheral Pulses, Regular Rate, Rhythm, No Edema, No Gallop, No JVD, No Murmur, No Rub GI/Abdominal: Normal Bowel Sounds, Soft, Non-Tender, No Organomegaly, No Distention, No Abnormal Bruit, No Mass (Female) Exam: Deferred Rectal (Female) Exam: Deferred Back Exam: Normal Inspection, Full Range of Motion, NT Extremities: Normal Inspection, Normal Range of Motion, Non-Tender, Normal Capillary Refill, No Pedal Edema Neurological: Alert, Oriented, CN II-XII Intact, Normal Cognition, Normal Gait, Normal Reflexes, No Motor/Sensory Deficits Psychiatric: Normal Affect, Normal Mood Skin Exam: Warm, Dry, Intact, Normal Color, No Rash Lymphatic: No Adenopathy Course - Vital Signs Last Recorded V/S: Last Vital Signs Temp 35.9 C 02/24/19 23:14 Pulse 65 02/24/19 23:14 Resp 18 02/24/19 23:14 BP 120/81 02/24/19 23:14 Pulse Ox 100 02/24/19 23:14 - Orders/Labs/Meds Orders: Active Orders 24 hr Category Date Time Status Sodium Chloride 0.9% [Saline Flush] Med 02/24/19 23:56 Ordered 10 ml FLUSH ASDIRECTED PRN Saline Lock Insert [OM.PC] Routine Oth 02/24/19 23:56 Ordered Medication Orders Sodium Chloride (Saline Flush) 10 ml FLUSH ASDIRECTED PRN PRN Reason: Keep Vein Open Last Admin: 02/25/19 00:10 Dose: 10 ml Meds: Medications Generic Name Dose Route Start Last Admin Trade Name Freq PRN Reason Stop Dose Admin Sodium Chloride 10 ml 02/24/19 23:56 02/25/19 00:10 Saline Flush FLUSH 10 ml ASDIRECTED PRN Administration Keep Vein Open Discontinued Medications Generic Name Dose Route Start Last Admin Trade Name Freq PRN Reason Stop Dose Admin Hydromorphone HCl 0.5 mg 02/24/19 23:56 02/25/19 00:10 Dilaudid IVPUSH 02/24/19 23:57 0.5 mg ONETIME ONE Administration Ondansetron HCl 4 mg 02/24/19 23:56 02/25/19 00:10 Zofran IVPUSH 02/24/19 23:57 4 mg ONETIME ONE Administration Departure - Departure Time of Disposition: 00:42 Disposition: Home, Self-Care 01 Condition: Fair Clinical Impression: Pain, dental - Discharge Information *PRESCRIPTION DRUG MONITORING PROGRAM REVIEWED*: Not Applicable *COPY OF PRESCRIPTION DRUG MONITORING REPORT IN PATIENT YVON: Not Applicable Forms: ED Department Discharge Care Plan Goals: The patient was advised of the examination results during the visit. The patient was given IV Zofran for nausea and IV Dilaudid for her pain while in the ED. The patient was discharged with [place] () #2 to take 1 by mouth every 6 hours. The patient was encouraged to follow-up with her dentist for continued evaluation and further treatment. If the patient has any additional symptoms or concerns, the patient should either return to the emergency department or visit her primary care facility. Sepsis Event Note - Evaluation Sepsis Screening Result: No Definite Risk - Focused Exam Vital Signs: Vital Signs Temp Pulse Resp BP Pulse Ox 02/24/19 23:14 35.9 C 65 18 120/81 100 Date Exam was Performed: 02/25/19 Time Exam was Performed: 00:42 - My Orders Last 24 Hours: My Active Orders 02/24/19 23:56 Sodium Chloride 0.9% [Saline Flush] 10 ml FLUSH ASDIRECTED PRN Saline Lock Insert [OM.PC] Routine - Assessment/Plan Last 24 Hours: My Active Orders 02/24/19 23:56 Sodium Chloride 0.9% [Saline Flush] 10 ml FLUSH ASDIRECTED PRN Saline Lock Insert [OM.PC] Routine
[2019-02-25] MEDS ORDERED: Acetaminophen/HYDROcodone 325-10 MG Tab ONE (00:47)
== END 2019-02-25 00:50 | disposition home or self-care (01) ==
LOC: DL.ED 23:11
DX: K08.89 Other specified disorders of teeth and supporting structures (principal); F17.210 Nicotine dependence, cigarettes, uncomplicated; Z88.5 Allergy status to narcotic agent; Z88.8 Allergy status to other drugs, medicaments and biological substances; Z90.49 Acquired absence of other specified parts of digestive tract; Z98.51 Tubal ligation status; Z90.710 Acquired absence of both cervix and uterus; Z98.890 Other specified postprocedural states; Z86.2 Personal history of diseases of the blood and blood-forming organs and certain disorders involving the immune mechanism
CPT/HCPCS: 96374; 96375; 99282; A9270; J1170; J2405

== ENCOUNTER 2019-03-07 00:15 | Emergency (ER) | payer MEDICAID ==
[2019-03-07] MEDS ORDERED: Butorphanol 2 MG/ML SDV IM ONE (00:28)
[2019-03-07] MEDS ORDERED: Promethazine 25 MG/ML SDV IM ONE (00:28)
--- NOTE | 2019-03-07 00:31 | EDM.PDOC ---
ED HPI GENERAL MEDICAL PROBLEM - General Chief Complaint: Headache Stated Complaint: MIGRAINE - OVER A WEEK, PAIN Time Seen by Provider: 03/07/19 00:29 Source of Information: Reports: Patient History Limitations: Reports: No Limitations - History of Present Illness INITIAL COMMENTS - FREE TEXT/NARRATIVE: h/o migraines present episode not going away past week. Treatments MANAGER SUPPLIER: Reports: Acetaminophen, NSAIDS Bilateral Eye Pain Score (Numeric/FACES): 8 - Related Data Allergies Allergy/AdvReac Type Severity Reaction Status Date / Time codeine Allergy Hallucinati Verified 03/07/19 00:26 ons procaine [From Novocain] Allergy Airway Verified 03/07/19 00:26 Tightness sumatriptan [From Imitrex] Allergy Vomiting Verified 03/07/19 00:27 Home Meds: Home Meds . 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 Musculoskeletal History: Reports: None Neurological History: Reports: Migraines Psychiatric History: Reports: Depression Endocrine/Metabolic History: Reports: Other (See Below) Other Endocrine/Metabolic History: impaired glucose tolerance test Hematologic History: Reports: Anemia Immunologic History: Reports: None Oncologic (Cancer) History: Reports: None Dermatologic History: Reports: None - Infectious Disease History Infectious Disease History: Reports: Chicken Pox - Past Surgical History Head Surgeries/Procedures: Reports: None HEENT Surgical History: Reports: Oral Surgery GI Surgical History: Reports: Cholecystectomy Female Surgical History: Reports: Section, Hysterectomy, Tubal Ligation Social & Family History - Family History Family Medical History: Noncontributory Cardiac: Reports: Hypertension Neurological: Reports: Migraines Endocrine/Metabolic: Reports: Diabetes, type II - Caffeine Use Caffeine Use: Reports: None - Living Situation & Occupation Living situation: Reports: with Significant Other, with Family Occupation: Unemployed ED ROS GENERAL - Review of Systems Review Of Systems: Comprehensive ROS is negative, except as noted in HPI. - Physical Exam Exam: See Below Exam Limited By: No Limitations General Appearance: Alert, WD/WN, Mild Distress, Moderate Distress, Other ( tearful) Eye Exam: Bilateral Eye: PERRL (pupils ER @ 4mm mild photophobia) Ears: Normal External Exam, Normal Canal, Hearing Grossly Normal Throat/Mouth: Normal Voice, No Airway Compromise Head Exam: Atraumatic Neck: Non-Tender, Full Range of Motion Respiratory/Chest: No Respiratory Distress Cardiovascular: Regular Rate, Rhythm GI/Abdominal: Soft, Non-Tender Neuro Exam (Abbreviated): Alert, Oriented, Normal Cognition, Normal Gait, No Motor/Sensory Deficits Psychiatric: Tearful Skin Exam: Warm, Dry, Normal Color Course - Vital Signs Last Recorded V/S: Last Vital Signs Temp 36.8 C 03/07/19 00:31 Pulse 70 03/07/19 00:31 Resp 18 03/07/19 00:31 BP 121/81 03/07/19 00:31 Pulse Ox 100 03/07/19 00:31 - Orders/Labs/Meds Meds: Medications Discontinued Medications Generic Name Dose Route Start Last Admin Trade Name Freq PRN Reason Stop Dose Admin Butorphanol Tartrate 2 mg 03/07/19 00:28 03/07/19 00:38 Stadol IM 03/07/19 00:29 2 mg ONETIME ONE Administration Promethazine HCl 25 mg 03/07/19 00:28 03/07/19 00:39 Phenergan IM 03/07/19 00:29 25 mg ONETIME ONE Administration Departure - Departure Time of Disposition: 00:50 Disposition: Home, Self-Care 01 Condition: Good Clinical Impression: Migraine aura, persistent Qualifiers: Status migrainosus presence: with status migrainosus Intractability: not intractable Qualified Code(s): G43.501 - Persistent migraine aura without cerebral infarction, not intractable, with status migrainosus Nausea & vomiting Qualifiers: Vomiting type: bilious vomiting Qualified Code(s): R11.14 - Bilious vomiting - Discharge Information Referrals: PCP,Unobtain [Primary Care Provider] - Forms: ED Department Discharge Additional Instructions: 1) rest 2) follow up at clinic Sepsis Event Note - Focused Exam Date Exam was Performed: 03/07/19 Time Exam was Performed: 18:56
[2019-03-07 00:34] VITALS: BP 121/81; PULSE 70
== END 2019-03-07 00:54 | disposition home or self-care (01) ==
LOC: DL.ED 00:15
DX: G43.501 Persistent migraine aura without cerebral infarction, not intractable, with status migrainosus (principal); R11.14 Bilious vomiting; Z88.5 Allergy status to narcotic agent; Z88.4 Allergy status to anesthetic agent; Z88.8 Allergy status to other drugs, medicaments and biological substances
CPT/HCPCS: 96372; 99283; J0595; J2550

== ENCOUNTER 2019-03-18 00:49 | Emergency (ER) | payer MEDICAID ==
[2019-03-18] MEDS ORDERED: Butorphanol 2 MG/ML SDV IM ONE (02:20)
[2019-03-18] MEDS ORDERED: Ondansetron 4 MG Tab.DIS PO ONE (02:21)
[2019-03-18 02:25] VITALS: BP 128/84; PULSE 72
--- NOTE | 2019-03-18 02:25 | EDM.PDOC ---
ED HPI GENERAL MEDICAL PROBLEM - General Chief Complaint: Headache Stated Complaint: MIGRAINE AND ARM PAIN Time Seen by Provider: 03/18/19 02:15 Source of Information: Reports: Patient, RN, RN Notes Reviewed History Limitations: Reports: No Limitations - History of Present Illness INITIAL COMMENTS - FREE TEXT/NARRATIVE: patient presents to ER with complaint of migraine headache which is been present for 3 days. Patient states she does have aura and sees black spots at times. Admits to nausea, denies vomiting. Patient complains of some lateral neck pain as well. Onset: Gradual Onset Date: 03/14/19 Duration: Constant Location: Reports: Head Quality: Reports: Dull, Pressure, Throbbing Severity: Moderate Improves with: Reports: None Worsens with: Reports: None Associated Symptoms: Reports: Nausea/Vomiting Treatments BUSINESS DEVELOPMENT COORDINATOR: Reports: Acetaminophen, NSAIDS Headache Pain Score (Numeric/FACES): 8 - Related Data Allergies Allergy/AdvReac Type Severity Reaction Status Date / Time codeine Allergy Hallucinati Verified 03/18/19 01:07 ons procaine [From Novocain] Allergy Airway Verified 03/18/19 01:07 Tightness sumatriptan [From Imitrex] Allergy Vomiting Verified 03/18/19 01:07 Home Meds: Home Meds . 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 History: Reports: , Spontaneous Musculoskeletal History: Reports: None Neurological History: Reports: Migraines Psychiatric History: Reports: Depression Endocrine/Metabolic History: Reports: Other (See Below) Other Endocrine/Metabolic History: impaired glucose tolerance test Hematologic History: Reports: Anemia Immunologic History: Reports: None Oncologic (Cancer) History: Reports: None Dermatologic History: Reports: None - Infectious Disease History Infectious Disease History: Reports: Chicken Pox - Past Surgical History Head Surgeries/Procedures: Reports: None HEENT Surgical History: Reports: Oral Surgery GI Surgical History: Reports: Cholecystectomy Female Surgical History: Reports: Section, Hysterectomy, Tubal Ligation Social & Family History - Family History Family Medical History: Noncontributory Cardiac: Reports: Hypertension Neurological: Reports: Migraines Endocrine/Metabolic: Reports: Diabetes, type II - Tobacco Use Smoking Status *Q: Current Every Day Smoker Years of Tobacco use: 13 Packs/Tins Daily: 0.2 - Caffeine Use Caffeine Use: Reports: Soda Other Caffeine Use: 5/day - Recreational Drug Use Recreational Drug Use: No - Living Situation & Occupation Living situation: Reports: with Significant Other, with Family Occupation: Unemployed ED ROS GENERAL - Review of Systems Review Of Systems: Comprehensive ROS is negative, except as noted in HPI. - Physical Exam Exam: See Below Exam Limited By: No Limitations General Appearance: Alert, WD/WN, Mild Distress Eye Exam: Bilateral Eye: EOMI, Normal Inspection, PERRL (3 brisk) Ears: Normal External Exam, Hearing Grossly Normal Nose: Normal Inspection, Normal Mucosa, No Blood Throat/Mouth: Normal Inspection, Normal Lips, Normal Teeth, Normal Gums, Normal Oropharynx, Normal Voice, No Airway Compromise Head Exam: Atraumatic, Normocephalic Neck: Normal Inspection, Full Range of Motion, Tender Lateral Respiratory/Chest: No Respiratory Distress, Lungs Clear, Normal Breath Sounds, No Accessory Muscle Use, Chest Non-Tender Cardiovascular: Normal Peripheral Pulses, Regular Rate, Rhythm, No Edema, No Gallop, No JVD, No Murmur, No Rub GI/Abdominal: Normal Bowel Sounds, Soft, Non-Tender (Female) Exam: Deferred Rectal (Female) Exam: Deferred Neuro Exam (Abbreviated): Alert, Oriented, CN II-XII Intact, Normal Cognition, Normal Gait, Normal Reflexes, No Motor/Sensory Deficits Back Exam: Normal Inspection, Full Range of Motion, NT Extremities: Normal Inspection, Normal Range of Motion, Non-Tender, No Pedal Edema, Normal Capillary Refill Psychiatric: Normal Affect, Normal Mood Skin Exam: Warm, Dry, Intact, Normal Color, No Rash Course - Vital Signs Last Recorded V/S: Last Vital Signs Temp 96.9 F 03/18/19 02:25 Pulse 72 03/18/19 02:25 Resp 14 03/18/19 02:25 BP 128/84 03/18/19 02:25 Pulse Ox 100 03/18/19 02:25 - Orders/Labs/Meds Orders: Active Orders 24 hr Category Date Time Status Peripheral IV Care [RC] . DIRECTED Care 03/18/19 03:16 Active Sodium Chloride 0.9% [Normal Saline] 1,000 ml Med 03/18/19 03:15 Active IV .BOLUS Sodium Chloride 0.9% [Saline Flush] Med 03/18/19 03:16 Active 10 ml FLUSH ASDIRECTED PRN Peripheral IV Insertion Adult [OM.PC] Stat Oth 03/18/19 03:15 Ordered Medication Orders Sodium Chloride (Normal Saline) 1,000 mls @ 999 mls/hr IV .BOLUS ONE Stop: 03/18/19 04:15 Last Admin: 03/18/19 03:25 Dose: 999 mls/hr Sodium Chloride (Saline Flush) 10 ml FLUSH ASDIRECTED PRN PRN Reason: Keep Vein Open Last Admin: 03/18/19 03:28 Dose: 10 ml Meds: Medications Generic Name Dose Route Start Last Admin Trade Name Freq PRN Reason Stop Dose Admin Sodium Chloride 1,000 mls @ 999 mls/hr 03/18/19 03:15 03/18/19 03:25 Normal Saline IV 03/18/19 04:15 999 mls/hr .BOLUS ONE Administration Sodium Chloride 10 ml 03/18/19 03:16 03/18/19 03:28 Saline Flush FLUSH 10 ml ASDIRECTED PRN Administration Keep Vein Open Discontinued Medications Generic Name Dose Route Start Last Admin Trade Name Freq PRN Reason Stop Dose Admin Butorphanol Tartrate 2 mg 03/18/19 02:20 03/18/19 02:32 Stadol IM 03/18/19 02:21 2 mg ONETIME ONE Administration Ketorolac Tromethamine 30 mg 03/18/19 03:15 03/18/19 03:27 Toradol IVPUSH 03/18/19 03:16 30 mg ONETIME ONE Administration Ondansetron HCl 4 mg 03/18/19 02:21 03/18/19 02:34 Zofran Odt PO 03/18/19 02:22 4 mg ONETIME ONE Administration Orphenadrine Citrate 60 mg 03/18/19 03:16 03/18/19 03:29 Norflex IM 03/18/19 03:17 60 mg ONETIME ONE Administration - Re-Assessments/Exams Free Text/Narrative Re-Assessment/Exam: 03/18/19 04:06 Patient states headache improved, feels sleepy and would like to go home to rest. Departure - Departure Time of Disposition: 04:15 Disposition: Home, Self-Care 01 Condition: Fair Clinical Impression: Migraine aura, persistent Qualifiers: Status migrainosus presence: with status migrainosus Intractability: not intractable Qualified Code(s): G43.501 - Persistent migraine aura without cerebral infarction, not intractable, with status migrainosus - Discharge Information *PRESCRIPTION DRUG MONITORING PROGRAM REVIEWED*: No *COPY OF PRESCRIPTION DRUG MONITORING REPORT IN PATIENT YVON: No Instructions: Recurrent Migraine Headache, [id number] Forms: ED Department Discharge Additional Instructions: follow-up with your primary care provider May use Tylenol and ibuprofen as well as caffeine for headaches Drink plenty of water Sepsis Event Note - Evaluation Sepsis Screening Result: No Definite Risk - Focused Exam Vital Signs: Vital Signs Temp Pulse Resp BP Pulse Ox 03/18/19 02:25 96.9 F 72 14 128/84 100 03/18/19 01:01 96.8 F 78 14 132/97 H 100 Date Exam was Performed: 03/18/19 Time Exam was Performed: 04:06 - My Orders Last 24 Hours: My Active Orders 03/18/19 03:15 Sodium Chloride 0.9% [Normal Saline] 1,000 ml IV .BOLUS Peripheral IV Insertion Adult [OM.PC] Stat 03/18/19 03:16 Peripheral IV Care [RC] . DIRECTED Sodium Chloride 0.9% [Saline Flush] 10 ml FLUSH ASDIRECTED PRN - Assessment/Plan Last 24 Hours: My Active Orders 03/18/19 03:15 Sodium Chloride 0.9% [Normal Saline] 1,000 ml IV .BOLUS Peripheral IV Insertion Adult [OM.PC] Stat 03/18/19 03:16 Peripheral IV Care [RC] . DIRECTED Sodium Chloride 0.9% [Saline Flush] 10 ml FLUSH ASDIRECTED PRN
[2019-03-18] MEDS ORDERED: Ketorolac 30 MG/ML SDV IVPUSH ONE (03:15)
[2019-03-18] MEDS ORDERED: Sodium Chloride 0.9% 1,000 ML IV ONE (03:15)
[2019-03-18] MEDS ORDERED: Sodium Chloride 0.9% 10 ML Syringe FLUSH PRN (03:16)
== END 2019-03-18 04:28 | disposition home or self-care (01) ==
LOC: DL.ED 00:49
DX: G43.501 Persistent migraine aura without cerebral infarction, not intractable, with status migrainosus (principal); F17.210 Nicotine dependence, cigarettes, uncomplicated; Z88.5 Allergy status to narcotic agent; Z88.8 Allergy status to other drugs, medicaments and biological substances
CPT/HCPCS: 96361; 96372; 96374; 99283; A9270; J0595; J1885; J2360; J7030

== ENCOUNTER 2019-03-31 02:17 | Emergency (ER) | payer MEDICAID ==
[2019-03-31 02:23] VITALS: BP 119/82; PULSE 76
[2019-03-31] MEDS ORDERED: Promethazine 25 MG/ML SDV IM ONE (02:37)
[2019-03-31] MEDS ORDERED: Ketorolac 30 MG/ML SDV IM ONE (02:37)
--- NOTE | 2019-03-31 02:50 | EDM.PDOC ---
ED HPI GENERAL MEDICAL PROBLEM - General Chief Complaint: Headache Stated Complaint: BACK AND SHOULDER PAIN, MIGRAIN Time Seen by Provider: 03/31/19 02:30 Source of Information: Reports: Patient History Limitations: Reports: No Limitations - History of Present Illness INITIAL COMMENTS - FREE TEXT/NARRATIVE: This 28 yo female patient reports to the ED with a 2 week history of intermittent neck pain and frequent headaches. The patient reports she has been taking Tylenol and ibuprofen with some temporary symptom relief. The patient reports she has contacted her provider (Dr. Ross) and will be seeing her tomorrow. The patient has had a MRI in the past. Duration: Day(s):, Constant Location: Reports: Head, Neck Quality: Reports: Other Severity: Moderate Improves with: Reports: None Worsens with: Reports: None Context: Reports: Other Associated Symptoms: Reports: Headaches Treatments DOUGHMAKER: Reports: Acetaminophen, NSAIDS Headache Pain Score (Numeric/FACES): 8 - Related Data Allergies Allergy/AdvReac Type Severity Reaction Status Date / Time codeine Allergy Hallucinati Verified 03/31/19 02:22 ons procaine [From Novocain] Allergy Airway Verified 03/31/19 02:22 Tightness sumatriptan [From Imitrex] Allergy Vomiting Verified 03/31/19 02:22 Home Meds: Home Meds . [No Known Home Meds] 11/07/18 [History] Past Medical History - Past Health History Medical/Surgical History: Denies Medical/Surgical History HEENT History: Reports: None Cardiovascular History: Reports: None Respiratory History: Reports: None Gastrointestinal History: Reports: Cholelithiasis, GERD Other Gastrointestinal History: positive gallstones Genitourinary History: Reports: None SPECIAL ASSETS OFFICER History: Reports: , Spontaneous Musculoskeletal History: Reports: None Neurological History: Reports: Migraines Psychiatric History: Reports: Depression Endocrine/Metabolic History: Reports: Other (See Below) Other Endocrine/Metabolic History: impaired glucose tolerance test Hematologic History: Reports: Anemia Immunologic History: Reports: None Oncologic (Cancer) History: Reports: None Dermatologic History: Reports: None - Infectious Disease History Infectious Disease History: Reports: Chicken Pox - Past Surgical History Head Surgeries/Procedures: Reports: None HEENT Surgical History: Reports: Oral Surgery GI Surgical History: Reports: Cholecystectomy Female Surgical History: Reports: Section, Hysterectomy, Tubal Ligation Social & Family History - Family History Family Medical History: Noncontributory Cardiac: Reports: Hypertension Neurological: Reports: Migraines Endocrine/Metabolic: Reports: Diabetes, type II - Tobacco Use Smoking Status *Q: Current Every Day Smoker Years of Tobacco use: 10 Packs/Tins Daily: 0.3 Second Hand Smoke Exposure: Yes - Caffeine Use Caffeine Use: Reports: Soda Other Caffeine Use: 5/day - Recreational Drug Use Recreational Drug Use: No - Living Situation & Occupation Living situation: Reports: with Significant Other, with Family Occupation: Unemployed ED ROS GENERAL - Review of Systems Review Of Systems: Comprehensive ROS is negative, except as noted in HPI. - Physical Exam Exam: See Below Exam Limited By: No Limitations General Appearance: Alert, WD/WN, Moderate Distress Eye Exam: Bilateral Eye: EOMI, Normal Inspection, PERRL Ears: Normal External Exam, Normal Canal, Hearing Grossly Normal, Normal TMs Nose: Normal Inspection, Normal Mucosa, No Blood Throat/Mouth: Normal Inspection, Normal Lips, Normal Teeth, Normal Gums, Normal Oropharynx, Normal Voice, No Airway Compromise Head Exam: Atraumatic, Normocephalic Neck: Normal Inspection, Supple, Non-Tender, Full Range of Motion Respiratory/Chest: No Respiratory Distress, Lungs Clear, Normal Breath Sounds, No Accessory Muscle Use, Chest Non-Tender Cardiovascular: Normal Peripheral Pulses, Regular Rate, Rhythm, No Edema, No Gallop, No JVD, No Murmur, No Rub GI/Abdominal: Normal Bowel Sounds, Soft, Non-Tender, No Organomegaly, No Distention, No Abnormal Bruit, No Mass (Female) Exam: Deferred Rectal (Female) Exam: Deferred Neuro Exam (Abbreviated): Alert, Oriented, CN II-XII Intact, Normal Cognition, Normal Gait, Normal Reflexes, No Motor/Sensory Deficits Back Exam: Normal Inspection, Full Range of Motion, NT Extremities: Normal Inspection, Normal Range of Motion, Non-Tender, No Pedal Edema, Normal Capillary Refill Psychiatric: Normal Affect, Normal Mood Skin Exam: Warm, Dry, Intact, Normal Color, No Rash Course - Vital Signs Last Recorded V/S: Last Vital Signs Temp 36.2 C 03/31/19 02:20 Pulse 76 03/31/19 02:20 Resp 18 03/31/19 02:20 BP 119/82 03/31/19 02:20 Pulse Ox 100 03/31/19 02:20 - Orders/Labs/Meds Meds: Medications Discontinued Medications Generic Name Dose Route Start Last Admin Trade Name Yang PRN Reason Stop Dose Admin Ketorolac Tromethamine 30 mg 03/31/19 02:37 03/31/19 02:45 Toradol IM 03/31/19 02:38 30 mg ONETIME ONE Administration Promethazine HCl 25 mg 03/31/19 02:37 03/31/19 02:47 Phenergan IM 03/31/19 02:38 25 mg ONETIME ONE Administration Departure - Departure Time of Disposition: 03:07 Disposition: Home, Self-Care 01 Condition: Fair Clinical Impression: Headache Qualifiers: Headache type: unspecified Headache chronicity pattern: acute headache Intractability: not intractable Qualified Code(s): R51 - Headache - Discharge Information *PRESCRIPTION DRUG MONITORING PROGRAM REVIEWED*: Not Applicable *COPY OF PRESCRIPTION DRUG MONITORING REPORT IN PATIENT YVON: Not Applicable Instructions: Migraine Headache, [id number] Forms: ED Department Discharge Care Plan Goals: The patient was advised of the examination results. The patient was given an injection of Phenergan and Toradol while in the ED. If the patient has any additional symptoms or concerns, the patient should either return to the emergency department or visit her primary care facility. Sepsis Event Note - Evaluation Sepsis Screening Result: No Definite Risk - Focused Exam Vital Signs: Vital Signs Temp Pulse Resp BP Pulse Ox 03/31/19 02:20 36.2 C 76 18 119/82 100 Date Exam was Performed: 03/31/19 Time Exam was Performed: 03:07
== END 2019-03-31 03:14 | disposition home or self-care (01) ==
LOC: DL.ED 02:17
DX: R51 Headache (principal); F17.210 Nicotine dependence, cigarettes, uncomplicated; Z88.8 Allergy status to other drugs, medicaments and biological substances; Z90.49 Acquired absence of other specified parts of digestive tract; Z90.710 Acquired absence of both cervix and uterus; Z88.5 Allergy status to narcotic agent; Z98.51 Tubal ligation status; Z98.890 Other specified postprocedural states
CPT/HCPCS: 96372; 99283; J1885; J2550

== ENCOUNTER 2019-07-20 00:13 | Emergency (ER) | payer MEDICAID ==
[2019-07-20 01:15] VITALS: BP 114/80; PULSE 76
[2019-07-20] MEDS ORDERED: Promethazine 25 MG/ML SDV IM ONE (01:29)
[2019-07-20] MEDS ORDERED: Butorphanol 2 MG/ML SDV IM ONE (01:29)
--- NOTE | 2019-07-20 01:33 | EDM.PDOC ---
ED HPI GENERAL MEDICAL PROBLEM - General Chief Complaint: Headache Stated Complaint: HEADACHE FOR 2 DAYS Time Seen by Provider: 07/20/19 01:29 Source of Information: Reports: Patient History Limitations: Reports: No Limitations - History of Present Illness INITIAL COMMENTS - FREE TEXT/NARRATIVE: long h/o migraines, saw Neuro with Dx low iron had iron infusion but felt worse. not slept past few nights. Treatments MASTER BAKER: Reports: Acetaminophen Headache Pain Score (Numeric/FACES): 8 - Related Data Allergies Allergy/AdvReac Type Severity Reaction Status Date / Time codeine Allergy Hallucinati Verified 07/20/19 01:16 ons procaine [From Novocain] Allergy Airway Verified 07/20/19 01:16 Tightness sumatriptan [From Imitrex] Allergy Vomiting Verified 07/20/19 01:16 Home Meds: Home Meds Ferrous Sulfate [Iron] 325 mg PO DAILY 07/20/19 [History] Topiramate [Trokendi Xr] 25 mg PO DAILY 07/20/19 [History] Past Medical History - Past Health History Medical/Surgical History: Denies Medical/Surgical History HEENT History: Reports: None Cardiovascular History: Reports: None Respiratory History: Reports: None Gastrointestinal History: Reports: Cholelithiasis, GERD Other Gastrointestinal History: positive gallstones Genitourinary History: Reports: None RN SOCIAL WORK History: Reports: , Spontaneous Musculoskeletal History: Reports: None Neurological History: Reports: Migraines Psychiatric History: Reports: Depression Endocrine/Metabolic History: Reports: Other (See Below) Other Endocrine/Metabolic History: impaired glucose tolerance test Hematologic History: Reports: Anemia Immunologic History: Reports: None Oncologic (Cancer) History: Reports: None Dermatologic History: Reports: None - Infectious Disease History Infectious Disease History: Reports: Chicken Pox - Past Surgical History Head Surgeries/Procedures: Reports: None HEENT Surgical History: Reports: Oral Surgery GI Surgical History: Reports: Cholecystectomy Female Surgical History: Reports: Section, Hysterectomy, Tubal Ligation Social & Family History - Family History Family Medical History: Noncontributory Cardiac: Reports: Hypertension Neurological: Reports: Migraines Endocrine/Metabolic: Reports: Diabetes, type II - Tobacco Use Smoking Status *Q: Current Every Day Smoker Years of Tobacco use: 10 Packs/Tins Daily: 2 - Caffeine Use Caffeine Use: Reports: Soda Other Caffeine Use: 5/day - Recreational Drug Use Recreational Drug Use: No - Living Situation & Occupation Living situation: Reports: with Significant Other, with Family Occupation: Unemployed ED ROS GENERAL - Review of Systems Review Of Systems: Comprehensive ROS is negative, except as noted in HPI. - Physical Exam Exam: See Below Exam Limited By: No Limitations General Appearance: Alert, WD/WN, Mild Distress, Other (tearful) Eye Exam: Bilateral Eye: PERRL (pupils ER @ 4mm) Ears: Hearing Grossly Normal Throat/Mouth: Normal Voice, No Airway Compromise Head Exam: Atraumatic Neck: Non-Tender, Full Range of Motion Respiratory/Chest: No Respiratory Distress Cardiovascular: Regular Rate, Rhythm GI/Abdominal: Soft, Non-Tender Neuro Exam (Abbreviated): Alert, Oriented, Normal Cognition, Normal Gait, No Motor/Sensory Deficits Psychiatric: Flat Affect, Tearful Skin Exam: Warm, Dry, Normal Color Course - Vital Signs Last Recorded V/S: Last Vital Signs Temp 36.3 C 07/20/19 01:09 Pulse 76 07/20/19 01:09 Resp 16 07/20/19 01:09 BP 114/80 07/20/19 01:09 Pulse Ox 99 07/20/19 01:09 - Orders/Labs/Meds Orders: Active Orders 24 hr Category Date Time Status Butorphanol [Stadol] Med 07/20/19 01:29 Once 2 mg IM ONETIME ONE Promethazine [Phenergan] Med 07/20/19 01:29 Once 25 mg IM ONETIME ONE Departure - Departure Time of Disposition: 01:32 Disposition: Home, Self-Care 01 Condition: Good Clinical Impression: Migraine Qualifiers: Migraine type: with aura Status migrainosus presence: with status migrainosus Intractability: intractable Qualified Code(s): G43.111 - Migraine with aura, intractable, with status migrainosus - Discharge Information Additional Instructions: 1) rest 2) avoid bright lights and loud noises Sepsis Event Note - Evaluation Sepsis Screening Result: No Definite Risk - Focused Exam Vital Signs: Vital Signs Temp Pulse Resp BP Pulse Ox 07/20/19 01:09 36.3 C 76 16 114/80 99 Date Exam was Performed: 07/20/19 Time Exam was Performed: 01:29 - My Orders Last 24 Hours: My Active Orders 07/20/19 01:29 Butorphanol [Stadol] 2 mg IM ONETIME ONE Promethazine [Phenergan] 25 mg IM ONETIME ONE - Assessment/Plan Last 24 Hours: My Active Orders 07/20/19 01:29 Butorphanol [Stadol] 2 mg IM ONETIME ONE Promethazine [Phenergan] 25 mg IM ONETIME ONE
== END 2019-07-20 01:43 | disposition home or self-care (01) ==
LOC: DL.ED 00:13
DX: G43.111 Migraine with aura, intractable, with status migrainosus (principal); F17.210 Nicotine dependence, cigarettes, uncomplicated; Z88.5 Allergy status to narcotic agent; Z88.6 Allergy status to analgesic agent; Z88.8 Allergy status to other drugs, medicaments and biological substances; Z79.899 Other long term (current) drug therapy
CPT/HCPCS: 96372; 99283; J0595; J2550

== ENCOUNTER 2019-08-12 01:17 | Emergency (ER) | payer MEDICAID ==
[2019-08-12] MEDS ORDERED: Butorphanol 2 MG/ML SDV IVPUSH ONE (02:04)
[2019-08-12] MEDS ORDERED: Sodium Chloride 0.9% 1,000 ML IV ONE (02:04)
[2019-08-12] MEDS ORDERED: Promethazine 25 MG/ML SDV IM ONE (02:04)
[2019-08-12 02:05] VITALS: BP 133/87; PULSE 75
--- NOTE | 2019-08-12 02:09 | EDM.PDOC ---
ED HPI GENERAL MEDICAL PROBLEM - General Chief Complaint: Headache Stated Complaint: MIGRAINE Time Seen by Provider: 08/12/19 02:00 Source of Information: Reports: Patient History Limitations: Reports: No Limitations - History of Present Illness INITIAL COMMENTS - FREE TEXT/NARRATIVE: This 28 yo female patient reports to the ED with a migraine headache for the past 5 days. The patient reports she did call Dr. Gallego today and had a medication increase. The patient reports she took the medications as prescribed, but has not had any relief at this time. The patient reports she took ibuprofen prior to her arrival in the ED. The patient also reports she is feeling nauseated. Onset: Today Duration: Constant Location: Reports: Head Quality: Reports: Other Severity: Severe Improves with: Reports: None Worsens with: Reports: None Context: Reports: Other Associated Symptoms: Reports: Headaches, Nausea/Vomiting Treatments CALL MANAGER: Reports: Acetaminophen, NSAIDS Headache Pain Score (Numeric/FACES): 7 - Related Data Allergies Allergy/AdvReac Type Severity Reaction Status Date / Time codeine Allergy Hallucinati Verified 08/12/19 02:05 ons procaine [From Novocain] Allergy Airway Verified 08/12/19 02:05 Tightness sumatriptan [From Imitrex] Allergy Vomiting Verified 08/12/19 02:05 Home Meds: Home Meds Ferrous Sulfate [Iron] 325 mg PO DAILY 07/20/19 [History] Topiramate [Trokendi Xr] 25 mg PO DAILY 07/20/19 [History] Past Medical History - Past Health History Medical/Surgical History: Denies Medical/Surgical History HEENT History: Reports: None Cardiovascular History: Reports: None Respiratory History: Reports: None Gastrointestinal History: Reports: Cholelithiasis, GERD Other Gastrointestinal History: positive gallstones Genitourinary History: Reports: None DEWAXER History: Reports: , Spontaneous Musculoskeletal History: Reports: None Neurological History: Reports: Migraines Psychiatric History: Reports: Depression Endocrine/Metabolic History: Reports: Other (See Below) Other Endocrine/Metabolic History: impaired glucose tolerance test Hematologic History: Reports: Anemia Immunologic History: Reports: None Oncologic (Cancer) History: Reports: None Dermatologic History: Reports: None - Infectious Disease History Infectious Disease History: Reports: Chicken Pox - Past Surgical History Head Surgeries/Procedures: Reports: None HEENT Surgical History: Reports: Oral Surgery GI Surgical History: Reports: Cholecystectomy Female Surgical History: Reports: Section, Hysterectomy, Tubal Ligation Social & Family History - Family History Family Medical History: Noncontributory Cardiac: Reports: Hypertension Neurological: Reports: Migraines Endocrine/Metabolic: Reports: Diabetes, type II - Caffeine Use Caffeine Use: Reports: Soda Other Caffeine Use: 5/day - Living Situation & Occupation Living situation: Reports: with Significant Other, with Family Occupation: Unemployed ED ROS GENERAL - Review of Systems Review Of Systems: Comprehensive ROS is negative, except as noted in HPI. - Physical Exam Exam: See Below Exam Limited By: No Limitations General Appearance: Alert, WD/WN, Moderate Distress Eye Exam: Bilateral Eye: EOMI, Normal Inspection, PERRL Ears: Normal External Exam, Normal Canal, Hearing Grossly Normal, Normal TMs Nose: Normal Inspection, Normal Mucosa, No Blood Throat/Mouth: Normal Inspection, Normal Lips, Normal Teeth, Normal Gums, Normal Oropharynx, Normal Voice, No Airway Compromise Head Exam: Atraumatic, Normocephalic Neck: Normal Inspection, Supple, Non-Tender, Full Range of Motion Respiratory/Chest: No Respiratory Distress, Lungs Clear, Normal Breath Sounds, No Accessory Muscle Use, Chest Non-Tender Cardiovascular: Normal Peripheral Pulses, Regular Rate, Rhythm, No Edema, No Gallop, No JVD, No Murmur, No Rub GI/Abdominal: Normal Bowel Sounds, Soft, Non-Tender, No Organomegaly, No Distention, No Abnormal Bruit, No Mass, Other (obese) (Female) Exam: Deferred Rectal (Female) Exam: Deferred Neuro Exam (Abbreviated): Alert, Oriented, CN II-XII Intact, Normal Cognition, Normal Gait, Normal Reflexes, No Motor/Sensory Deficits Back Exam: Normal Inspection, Full Range of Motion, NT Extremities: Normal Inspection, Normal Range of Motion, Non-Tender, No Pedal Edema, Normal Capillary Refill Psychiatric: Normal Affect, Normal Mood Skin Exam: Warm, Dry, Intact, Normal Color, No Rash Course - Vital Signs Last Recorded V/S: Last Vital Signs Temp 36.7 C 08/12/19 02:01 Pulse 75 08/12/19 02:01 Resp 16 08/12/19 02:01 BP 133/87 08/12/19 02:01 Pulse Ox 100 08/12/19 02:01 - Orders/Labs/Meds Orders: Active Orders 24 hr Category Date Time Status Sodium Chloride 0.9% [Normal Saline] 1,000 ml Med 08/12/19 02:04 Ordered IV .BOLUS Medication Orders Sodium Chloride (Normal Saline) 1,000 mls @ 999 mls/hr IV .BOLUS ONE Stop: 08/12/19 03:04 Last Admin: 08/12/19 02:20 Dose: 999 mls/hr Documented by: Meds: Medications Generic Name Dose Route Start Last Admin Trade Name Freq PRN Reason Stop Dose Admin Sodium Chloride 1,000 mls @ 999 mls/hr 08/12/19 02:04 08/12/19 02:20 Normal Saline IV 08/12/19 03:04 999 mls/hr .BOLUS ONE Administration Discontinued Medications Generic Name Dose Route Start Last Admin Trade Name Freq PRN Reason Stop Dose Admin Butorphanol Tartrate 2 mg 08/12/19 02:04 08/12/19 02:17 Stadol IVPUSH 08/12/19 02:05 2 mg ONETIME ONE Administration Promethazine HCl 25 mg 08/12/19 02:04 08/12/19 02:20 Phenergan IM 08/12/19 02:05 25 mg ONETIME ONE Administration Departure - Departure Time of Disposition: 02:59 Disposition: Home, Self-Care 01 Condition: Fair Clinical Impression: Migraine Qualifiers: Migraine type: with aura Status migrainosus presence: with status migrainosus Intractability: intractable Qualified Code(s): G43.111 - Migraine with aura, intractable, with status migrainosus - Discharge Information *PRESCRIPTION DRUG MONITORING PROGRAM REVIEWED*: Yes *COPY OF PRESCRIPTION DRUG MONITORING REPORT IN PATIENT YVON: Yes Instructions: Migraine Headache, [id number] Forms: ED Department Discharge Care Plan Goals: The patient was advised of the examination and lab results during the visit. The patient was given IV fluids, IM Phenergan and IV Stadol while in the ED. The patient was encouraged to increase her oral fluid intake over the next 48 hours. If the patient has any additional symptoms or concerns, the patient should either return to the emergency department or visit her primary care facility. Sepsis Event Note (ED) - Evaluation Sepsis Screening Result: No Definite Risk - Focused Exam Vital Signs: Vital Signs Temp Pulse Resp BP Pulse Ox 08/12/19 02:01 36.7 C 75 16 133/87 100 - My Orders Last 24 Hours: My Active Orders 08/12/19 02:04 Sodium Chloride 0.9% [Normal Saline] 1,000 ml IV .BOLUS - Assessment/Plan Last 24 Hours: My Active Orders 08/12/19 02:04 Sodium Chloride 0.9% [Normal Saline] 1,000 ml IV .BOLUS
== END 2019-08-12 03:25 | disposition home or self-care (01) ==
LOC: DL.ED 01:17
DX: G43.111 Migraine with aura, intractable, with status migrainosus (principal); R11.2 Nausea with vomiting, unspecified; D64.9 Anemia, unspecified; Z88.5 Allergy status to narcotic agent; Z88.8 Allergy status to other drugs, medicaments and biological substances; Z79.899 Other long term (current) drug therapy
CPT/HCPCS: 96361; 96372; 96374; 99283; J0595; J2550; J7030

== ENCOUNTER 2019-10-01 16:17 | Emergency (ER) | payer MEDICAID ==
[2019-10-01 16:32] VITALS: BP 135/74; PULSE 90
[2019-10-01 17:53] LABS: ANION GAP 13.9 mEq/L (7-13); CHLORIDE,CL 104 mmol/L (98-107); SODIUM,NA 138 mmol/L (136-145)
--- NOTE | 2019-10-01 18:05 | EDM.PDOC ---
Scribed by Carrol Bailey 10/01/19 0985 for Thad Muhammad MD ED HPI GENERAL MEDICAL PROBLEM - General Chief Complaint: General Stated Complaint: RIGHT&LEFT HAND TO ELBOW HURTS/NUMB... Time Seen by Provider: 10/01/19 16:40 Source of Information: Reports: Patient, RN, RN Notes Reviewed History Limitations: Reports: No Limitations - History of Present Illness INITIAL COMMENTS - FREE TEXT/NARRATIVE: Patient presents to ED by POV stating she had onset of numbness of right hand, which spared the 5th finger. By mid day the hand felt puffy to her and began to ache and then the whole arm started to ache. Today she had similar sensation in the left hand, but less numbness. The right hand symptoms returned. She has not noticed if it is positional or not. Denies neck pain or injury. Denies any other symptoms at this time. Onset Date: 09/30/19 Duration: Constant Location: Reports: Upper Extremity, Left, Upper Extremity, Right Quality: Reports: Ache Severity: Mild Improves with: Reports: None Worsens with: Reports: None Associated Symptoms: Reports: No Other Symptoms - Related Data Allergies Allergy/AdvReac Type Severity Reaction Status Date / Time codeine Allergy Hallucinati Verified 10/01/19 16:30 ons procaine [From Novocain] Allergy Airway Verified 10/01/19 16:30 Tightness sumatriptan [From Imitrex] Allergy Vomiting Verified 10/01/19 16:30 Home Meds: Home Meds Ferrous Sulfate [Iron] 325 mg PO DAILY 07/20/19 [History] Topiramate [Trokendi Xr] 25 mg PO DAILY 07/20/19 [History] Past Medical History - Past Health History Medical/Surgical History: Denies Medical/Surgical History HEENT History: Reports: None Cardiovascular History: Reports: None Respiratory History: Reports: None Gastrointestinal History: Reports: Cholelithiasis, GERD Other Gastrointestinal History: positive gallstones Genitourinary History: Reports: None 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: , 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 Musculoskeletal History: Reports: None Neurological History: Reports: Migraines Psychiatric History: Reports: Depression Endocrine/Metabolic History: Reports: Other (See Below) Other Endocrine/Metabolic History: impaired glucose tolerance test Hematologic History: Reports: Anemia Immunologic History: Reports: None Oncologic (Cancer) History: Reports: None Dermatologic History: Reports: None - Infectious Disease History Infectious Disease History: Reports: Chicken Pox - Past Surgical History Head Surgeries/Procedures: Reports: None HEENT Surgical History: Reports: Oral Surgery GI Surgical History: Reports: Cholecystectomy Female Surgical History: Reports: Section, Hysterectomy, Tubal Ligation Social & Family History - Family History Family Medical History: Noncontributory Cardiac: Reports: Hypertension Neurological: Reports: Migraines Endocrine/Metabolic: Reports: Diabetes, type II - Caffeine Use Caffeine Use: Reports: Soda Other Caffeine Use: 5/day - Living Situation & Occupation Living situation: Reports: with Significant Other, with Family Occupation: Unemployed ED ROS GENERAL - Review of Systems Review Of Systems: Comprehensive ROS is negative, except as noted in HPI. ED EXAM, GENERAL - Physical Exam Exam: See Below Exam Limited By: No Limitations General Appearance: Alert, WD/WN, No Apparent Distress Head: Atraumatic, Normocephalic Neck: Normal Inspection, Supple, Non-Tender, Full Range of Motion Respiratory/Chest: No Respiratory Distress Cardiovascular: Normal Peripheral Pulses Back Exam: Normal Inspection Neurological: Alert, Oriented, CN II-XII Intact, Normal Cognition, Normal Gait, Other (no motor deficits. Right hand and digits 1-3 and the radial side of the 4th digit are subjectively numb to light touch. Left upper extremity is normal to exam. ) Psychiatric: Normal Mood Skin Exam: Warm, Dry, Intact, Normal Color, No Rash Course - Vital Signs Last Recorded V/S: Last Vital Signs Temp 98.3 F 10/01/19 16:30 Pulse 90 10/01/19 16:30 Resp 16 10/01/19 16:30 BP 135/74 10/01/19 16:30 Pulse Ox 99 10/01/19 16:30 - Orders/Labs/Meds Orders: Active Orders 24 hr Category Date Time Status COMPREHENSIVE METABOLIC PN,CMP [CHEM] Stat Lab 10/01/19 17:20 Results HCG QUALITATIVE,SERUM [CHEM] Stat Lab 10/01/19 17:20 Results DME for Discharge [COMM] Routine Oth 10/01/19 18:02 Ordered Labs: Laboratory Tests 10/01/19 10/01/19 Range/Units 17:20 17:20 WBC 10.2 H (5.0-10.0) 10^3/uL RBC 4.81 (4.2-5.4) 10^6/uL Hgb 14.8 D (12.0-16.0) g/dL Hct 44.4 (37.0-47.0) % MCV 92.3 D (80-100) fL MCH 30.8 (27.0-34.0) pg MCHC 33.3 (33.0-35.0) g/dL Plt Count 302 D (150-450) 10^3/uL Neut % (Auto) 55.6 (42.2-75.2) % Lymph % (Auto) 35.6 (20.5-50.1) % [place] % (Auto) 7.0 (2-8) % Eos % (Auto) 1.4 (1.0-3.0) % Baso % (Auto) 0.4 (0.0-1.0) % Sodium 138 (136-145) mmol/L Potassium 3.9 (3.5-5.1) mmol/L Chloride 104 (98-107) mmol/L Carbon Dioxide 24 (21-32) mmol/L Anion Gap 13.9 H (7-13) mEq/L BUN 6 L (7-18) mg/dL Creatinine 0.85 (0.55-1.02) mg/dL Est Cr Clr Drug Dosing 80.78 mL/min Estimated GFR (MDRD) > 60 BUN/Creatinine Ratio 7.1 (No establ ref range) Glucose 100 H (74-99) mg/dL Calcium 8.4 L (8.5-10.1) mg/dL Total Bilirubin 0.4 (0.2-1.0) mg/dL AST 13 L (15-37) U/L ALT 28 (14-59) U/L Alkaline Phosphatase 100 (46-116) U/L Total Protein 6.9 (6.4-8.2) g/dL Albumin 3.5 (3.4-5.0) g/dL Globulin 3.4 Albumin/Globulin Ratio 1.0 Departure - Departure Time of Disposition: 18:03 Disposition: Home, Self-Care 01 Condition: Good Clinical Impression: Carpal tunnel syndrome, bilateral - Discharge Information *PRESCRIPTION DRUG MONITORING PROGRAM REVIEWED*: Not Applicable *COPY OF PRESCRIPTION DRUG MONITORING REPORT IN PATIENT YVON: Not Applicable Instructions: Preventing Carpal Tunnel Syndrome, Hand Exercises Forms: ED Department Discharge Additional Instructions: Wear right wrist splint. Follow up in clinic for recheck in 1 week, and for referral to orthopedic surgeon if needed. Sepsis Event Note (ED) - Evaluation Sepsis Screening Result: No Definite Risk - Focused Exam Vital Signs: Vital Signs Temp Pulse Resp BP Pulse Ox 10/01/19 16:30 98.3 F 90 16 135/74 99 - My Orders Last 24 Hours: My Active Orders 10/01/19 17:20 COMPREHENSIVE METABOLIC PN,CMP [CHEM] Stat HCG QUALITATIVE,SERUM [CHEM] Stat 10/01/19 18:02 DME for Discharge [COMM] Routine - Assessment/Plan Last 24 Hours: My Active Orders 10/01/19 17:20 COMPREHENSIVE METABOLIC PN,CMP [CHEM] Stat HCG QUALITATIVE,SERUM [CHEM] Stat 10/01/19 18:02 DME for Discharge [COMM] Routine I have read and agree with the documentation that has been completed regarding this visit. By signing this record, I attest that the documentation was completed in my physical presence and is an accurate record of the encounter.
== END 2019-10-01 18:09 | disposition home or self-care (01) ==
LOC: DL.ED 16:17
DX: G56.03 Carpal tunnel syndrome, bilateral upper limbs (principal); D64.9 Anemia, unspecified; Z88.5 Allergy status to narcotic agent; Z88.8 Allergy status to other drugs, medicaments and biological substances; Z79.899 Other long term (current) drug therapy
CPT/HCPCS: 36415; 80053; 84703; 85025; 99284

== ENCOUNTER 2020-01-10 19:11 | Emergency (ER) | payer MEDICAID ==
[2020-01-10] MEDS ORDERED: Promethazine 25 MG/ML SDV IM ONE (19:24)
[2020-01-10] MEDS ORDERED: Butorphanol 2 MG/ML SDV IM ONE (19:24)
--- NOTE | 2020-01-10 19:28 | EDM.PDOC ---
ED HPI GENERAL MEDICAL PROBLEM - General Chief Complaint: Headache Stated Complaint: MIGRAINE Time Seen by Provider: 01/10/20 19:25 Source of Information: Reports: Patient History Limitations: Reports: No Limitations - History of Present Illness INITIAL COMMENTS - FREE TEXT/NARRATIVE: recurrent h/o migraine, been to clinic and been taking all her usual x but nothing. - Related Data Allergies Allergy/AdvReac Type Severity Reaction Status Date / Time codeine Allergy Hallucinati Verified 10/01/19 16:30 ons procaine [From Novocain] Allergy Airway Verified 10/01/19 16:30 Tightness sumatriptan [From Imitrex] Allergy Vomiting Verified 10/01/19 16:30 Home Meds: Home Meds Ferrous Sulfate [Iron] 325 mg PO DAILY 07/20/19 [History] Topiramate [Trokendi Xr] 25 mg PO DAILY 07/20/19 [History] Past Medical History - Past Health History Medical/Surgical History: Denies Medical/Surgical History HEENT History: Reports: None Cardiovascular History: Reports: None Respiratory History: Reports: None Gastrointestinal History: Reports: Cholelithiasis, GERD Other Gastrointestinal History: positive gallstones Genitourinary History: Reports: None 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: , 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 Musculoskeletal History: Reports: None Neurological History: Reports: Migraines Psychiatric History: Reports: Depression Endocrine/Metabolic History: Reports: Other (See Below) Other Endocrine/Metabolic History: impaired glucose tolerance test Hematologic History: Reports: Anemia Immunologic History: Reports: None Oncologic (Cancer) History: Reports: None Dermatologic History: Reports: None - Infectious Disease History Infectious Disease History: Reports: Chicken Pox - Past Surgical History Head Surgeries/Procedures: Reports: None HEENT Surgical History: Reports: Oral Surgery GI Surgical History: Reports: Cholecystectomy Female Surgical History: Reports: Section, Hysterectomy, Tubal Ligation Social & Family History - Family History Family Medical History: No Pertinent Family History Cardiac: Reports: Hypertension Neurological: Reports: Migraines Endocrine/Metabolic: Reports: Diabetes, type II - Caffeine Use Caffeine Use: Reports: Soda Other Caffeine Use: 5/day - Living Situation & Occupation Living situation: Reports: with Significant Other, with Family Occupation: Unemployed ED ROS GENERAL - Review of Systems Review Of Systems: Comprehensive ROS is negative, except as noted in HPI. - Physical Exam Exam: See Below Exam Limited By: No Limitations General Appearance: Alert, WD/WN, Mild Distress, Moderate Distress, Other (crying) Eye Exam: Bilateral Eye: PERRL (pupils ER @ 4mm) Ears: Hearing Grossly Normal Throat/Mouth: Normal Voice, No Airway Compromise Head Exam: Atraumatic Neck: Non-Tender, Full Range of Motion Respiratory/Chest: No Respiratory Distress Cardiovascular: Regular Rate, Rhythm GI/Abdominal: Soft, Non-Tender (Female) Exam: Deferred Rectal (Female) Exam: Deferred Neuro Exam (Abbreviated): Alert, Oriented, Normal Cognition, Normal Gait, No Motor/Sensory Deficits Psychiatric: Tearful Skin Exam: Warm, Dry, Normal Color Course - Orders/Labs/Meds Meds: Medications Discontinued Medications Generic Name Dose Route Start Last Admin Trade Name Freq PRN Reason Stop Dose Admin Butorphanol Tartrate 2 mg 01/10/20 19:24 Stadol IM 01/10/20 19:25 ONETIME ONE Promethazine HCl 25 mg 01/10/20 19:24 Phenergan IM 01/10/20 19:25 ONETIME ONE Departure - Departure Time of Disposition: 19:27 Disposition: Home, Self-Care 01 Condition: Good Clinical Impression: Migraine aura, persistent Qualifiers: Status migrainosus presence: with status migrainosus Intractability: not intractable Qualified Code(s): G43.501 - Persistent migraine aura without cerebral infarction, not intractable, with status migrainosus - Discharge Information Additional Instructions: 1) rest 2) avoid loud noise and bright lights 3) follow up at clinic
[2020-01-10 19:29] VITALS: BP 121/90; PULSE 88
== END 2020-01-10 19:48 | disposition home or self-care (01) ==
LOC: DL.ED 19:11
DX: G43.501 Persistent migraine aura without cerebral infarction, not intractable, with status migrainosus (principal); D64.9 Anemia, unspecified; Z88.5 Allergy status to narcotic agent; Z88.8 Allergy status to other drugs, medicaments and biological substances; Z79.899 Other long term (current) drug therapy
CPT/HCPCS: 96372; 99283; J0595; J2550

== ENCOUNTER 2020-03-13 02:04 | Emergency (ER) | payer MEDICAID ==
--- NOTE | 2020-03-13 02:15 | EDM.PDOC ---
ED HPI GENERAL MEDICAL PROBLEM - General Chief Complaint: Back Pain or Injury Stated Complaint: FELL DOWN 20 STAIRS;BACK SIDE PAIN Time Seen by Provider: 03/13/20 02:14 Source of Information: Reports: Patient History Limitations: Reports: No Limitations - History of Present Illness INITIAL COMMENTS - FREE TEXT/NARRATIVE: fell onto tail bone tonight Lower Back Pain Score (Numeric/FACES): 9 - Related Data Allergies Allergy/AdvReac Type Severity Reaction Status Date / Time codeine Allergy Hallucinati Verified 03/13/20 02:20 ons procaine [From Novocain] Allergy Airway Verified 03/13/20 02:20 Tightness sumatriptan [From Imitrex] Allergy Vomiting Verified 03/13/20 02:20 Home Meds: Home Meds Ferrous Sulfate [Iron] 325 mg PO DAILY 07/20/19 [History] Topiramate [Trokendi Xr] 25 mg PO DAILY 07/20/19 [History] Past Medical History - Past Health History Medical/Surgical History: Denies Medical/Surgical History HEENT History: Reports: None Cardiovascular History: Reports: None Respiratory History: Reports: None Gastrointestinal History: Reports: Cholelithiasis, GERD Other Gastrointestinal History: positive gallstones Genitourinary History: Reports: None 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: , 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 Musculoskeletal History: Reports: None Neurological History: Reports: Migraines Psychiatric History: Reports: Depression Endocrine/Metabolic History: Reports: Other (See Below) Other Endocrine/Metabolic History: impaired glucose tolerance test Hematologic History: Reports: Anemia Immunologic History: Reports: None Oncologic (Cancer) History: Reports: None Dermatologic History: Reports: None - Infectious Disease History Infectious Disease History: Reports: Chicken Pox - Past Surgical History Head Surgeries/Procedures: Reports: None HEENT Surgical History: Reports: Oral Surgery GI Surgical History: Reports: Cholecystectomy Female Surgical History: Reports: Section, Hysterectomy, Tubal Ligation Social & Family History - Family History Family Medical History: No Pertinent Family History Cardiac: Reports: Hypertension Neurological: Reports: Migraines Endocrine/Metabolic: Reports: Diabetes, type II - Caffeine Use Caffeine Use: Reports: Coffee, Soda Other Caffeine Use: 5/day - Living Situation & Occupation Living situation: Reports: with Significant Other, with Family Occupation: Unemployed ED ROS GENERAL - Review of Systems Review Of Systems: Comprehensive ROS is negative, except as noted in HPI. ED EXAM,LOWER BACK PAIN/INJURY - Physical Exam Exam: See Below Exam Limited By: No Limitations General Appearance: Alert, WD/WN, Mild Distress, Moderate Distress, Other (discomfort) Ears: Hearing Grossly Normal Throat/Mouth: Normal Voice, No Airway Compromise Head: Atraumatic Neck: Non-Tender, Full Range of Motion Respiratory/Chest: No Respiratory Distress Cardiovascular: Regular Rate, Rhythm GI/Abdominal: Soft, Non-Tender (Female) Exam: Deferred Rectal (Female) Exam: Deferred Back Exam: Other (tender coocyx region, gait limited to pain,) Extremities: Normal Range of Motion Neurological: Alert, No Motor/Sensory Deficits, Oriented x 3 Psychiatric: Tearful Skin Exam: Warm, Dry, Normal Color Lymphatic: No Adenopathy Course - Vital Signs Last Recorded V/S: Last Vital Signs Temp 36.4 C 03/13/20 02:12 Pulse 109 H 03/13/20 02:12 Resp 19 03/13/20 02:12 BP 128/96 H 03/13/20 02:12 Pulse Ox 100 03/13/20 02:12 - Orders/Labs/Meds Orders: Active Orders 24 hr Category Date Time Status Sacrum Coccyx Min 2V [CR] Urgent Exams 03/13/20 02:12 Taken Butorphanol [Stadol] Med 03/13/20 02:49 Once 2 mg IM ONETIME ONE Promethazine [Phenergan] Med 03/13/20 02:49 Once 25 mg IM ONETIME ONE Meds: Medications Discontinued Medications Generic Name Dose Route Start Last Admin Trade Name Freq PRN Reason Stop Dose Admin Ondansetron HCl 4 mg 03/13/20 02:35 03/13/20 02:40 Zofran Odt PO 03/13/20 02:36 4 mg ONETIME ONE Administration - Re-Assessments/Exams Free Text/Narrative Re-Assessment/Exam: 03/13/20 02:49 results discussed with pt Departure - Departure Time of Disposition: 02:50 Disposition: Home, Self-Care 01 Condition: Good Clinical Impression: Coccygeal contusion Qualifiers: Encounter type: initial encounter Qualified Code(s): S30.0XXA - Contusion of lower back and pelvis, initial encounter - Discharge Information Instructions: Contusion, [id number] Forms: ED Department Discharge Additional Instructions: 1) rest 2) avoid bending lifting straining 3) ice or heat to sore area 4) follow up at clinic Sepsis Event Note (ED) - Focused Exam Vital Signs: Vital Signs Temp Pulse Resp BP Pulse Ox 03/13/20 02:12 36.4 C 109 H 19 128/96 H 100 - My Orders Last 24 Hours: My Active Orders 03/13/20 02:12 Sacrum Coccyx Min 2V [CR] Urgent 03/13/20 02:49 Butorphanol [Stadol] 2 mg IM ONETIME ONE Promethazine [Phenergan] 25 mg IM ONETIME ONE - Assessment/Plan Last 24 Hours: My Active Orders 03/13/20 02:12 Sacrum Coccyx Min 2V [CR] Urgent 03/13/20 02:49 Butorphanol [Stadol] 2 mg IM ONETIME ONE Promethazine [Phenergan] 25 mg IM ONETIME ONE
[2020-03-13 02:20] VITALS: BP 128/96; PULSE 109
[2020-03-13] MEDS ORDERED: Ondansetron 4 MG Tab.DIS PO ONE (02:35)
[2020-03-13] MEDS ORDERED: Butorphanol 2 MG/ML SDV IM ONE (02:49)
[2020-03-13] MEDS ORDERED: Promethazine 25 MG/ML SDV IM ONE (02:49)
--- NOTE | 2020-03-13 02:56 | CR ---
PROCEDURE INFORMATION: Exam: XR Sacrum and Coccyx, 2 or More Views Exam date and time: 03/13/2020 2:23 AM Age: 29 years old Clinical indication: Injury or trauma; Fall; Blunt trauma (contusions or hematomas); Additional info: Fell onto it TECHNIQUE: Imaging protocol: XR of the sacrum and coccyx, 2 or more views. COMPARISON: CT Abdomen Pelvis w Cont 11/26/2018 1:19 AM FINDINGS: Bones/joints: Normal. No acute fracture. Soft tissues: Normal. IMPRESSION: No acute findings.
== END 2020-03-13 03:03 | disposition home or self-care (01) ==
LOC: DL.ED 02:04
DX: S30.0XXA Contusion of lower back and pelvis, initial encounter (principal); G43.909 Migraine, unspecified, not intractable, without status migrainosus; Z88.5 Allergy status to narcotic agent; Z88.8 Allergy status to other drugs, medicaments and biological substances; Z88.4 Allergy status to anesthetic agent; Z79.899 Other long term (current) drug therapy; W10.8XXA Fall (on) (from) other stairs and steps, initial encounter
CPT/HCPCS: 72220; 96372; 99283; 99283-25; A9270-GY; J0595; J2550

== ENCOUNTER 2020-04-20 19:22 | Emergency (ER) | payer MEDICAID ==
[2020-04-20] MEDS ORDERED: Promethazine 25 MG/ML SDV IM ONE (21:18)
[2020-04-20] MEDS ORDERED: Butorphanol 2 MG/ML SDV IM ONE (21:18)
[2020-04-20 21:23] VITALS: BP 131/88; PULSE 65
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
== END 2020-04-20 21:55 | disposition home or self-care (01) ==
LOC: DL.ED 19:22
DX: G43.909 Migraine, unspecified, not intractable, without status migrainosus (principal); Z79.899 Other long term (current) drug therapy
CPT/HCPCS: 96372; 99283; J0595; J2550

== ENCOUNTER 2020-05-18 23:54 | Emergency (ER) | payer MEDICAID ==
--- NOTE | 2020-05-19 00:05 | EDM.PDOC ---
ED HPI GENERAL MEDICAL PROBLEM - General Chief Complaint: ENT Problem Stated Complaint: pain in right ear feels something/uncomfortable Time Seen by Provider: 05/18/20 23:57 Source of Information: Reports: Patient, RN History Limitations: Reports: No Limitations - History of Present Illness INITIAL COMMENTS - FREE TEXT/NARRATIVE: ED c/o right ear pain, points to area behind ear and bonnie fold, radiating down neck. No fever, no cough or sore throat. Noiced today. - Related Data Allergies Allergy/AdvReac Type Severity Reaction Status Date / Time codeine Allergy Hallucinati Verified 05/19/20 00:08 ons procaine [From Novocain] Allergy Airway Verified 05/19/20 00:08 Tightness sumatriptan [From Imitrex] Allergy Vomiting Verified 05/19/20 00:08 Home Meds: Home Meds Ferrous Sulfate [Iron] 325 mg PO DAILY 07/20/19 [History] Topiramate [Trokendi Xr] 25 mg PO DAILY 07/20/19 [History] Past Medical History - Past Health History Medical/Surgical History: Denies Medical/Surgical History HEENT History: Reports: None Cardiovascular History: Reports: None Respiratory History: Reports: None Gastrointestinal History: Reports: Cholelithiasis, GERD Other Gastrointestinal History: positive gallstones Genitourinary History: Reports: None 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: , 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 Musculoskeletal History: Reports: None Neurological History: Reports: Migraines Psychiatric History: Reports: Depression Endocrine/Metabolic History: Reports: Other (See Below) Other Endocrine/Metabolic History: impaired glucose tolerance test Hematologic History: Reports: Anemia Immunologic History: Reports: None Oncologic (Cancer) History: Reports: None Dermatologic History: Reports: None - Infectious Disease History Infectious Disease History: Reports: Chicken Pox - Past Surgical History Head Surgeries/Procedures: Reports: None HEENT Surgical History: Reports: Oral Surgery GI Surgical History: Reports: Cholecystectomy Female Surgical History: Reports: Section, Hysterectomy, Tubal Ligation Social & Family History - Family History Family Medical History: No Pertinent Family History Cardiac: Reports: Hypertension Neurological: Reports: Migraines Endocrine/Metabolic: Reports: Diabetes, type II - Caffeine Use Caffeine Use: Reports: Soda Other Caffeine Use: 5/day - Living Situation & Occupation Living situation: Reports: with Significant Other, with Family Occupation: Unemployed ED ROS ENT - Review of Systems Review Of Systems: Comprehensive ROS is negative, except as noted in HPI. ED EXAM, ENT - Physical Exam Exam: See Below Exam Limited By: No Limitations General Appearance: Alert, Mild Distress Eye Exam: Bilateral Eye: EOMI Ears: Normal Canal, Hearing Grossly Normal, Normal TMs, Auricular Erythema (posterior fold), Auricular Tenderness, Mastoid Tenderness. No: Mastoid Swelling Nose: Normal Inspection Mouth/Throat: Normal Inspection Head: Atraumatic, Normocephalic Neck: Normal Inspection, Lymphadenopathy (R) Respiratory/Chest: No Respiratory Distress, Lungs Clear Cardiovascular: Regular Rate, Rhythm Extremities: Normal Inspection Neurological: Alert, Oriented, Normal Cognition Psychiatric: Normal Affect Skin: Warm, Dry, Erythema, Wound/Incision (posterior auricular fold, small erythema, warmth punctate lesion scant drainage ) Departure - Departure Time of Disposition: 00:07 Disposition: Home, Self-Care 01 Condition: Good Clinical Impression: Skin infection, Adenopathy, cervical - Discharge Information *PRESCRIPTION DRUG MONITORING PROGRAM REVIEWED*: No *COPY OF PRESCRIPTION DRUG MONITORING REPORT IN PATIENT YVON: No Additional Instructions: bacitracin to area behind right ear keflex 500mg three times daily utilize tie mask for one week until area healed follow up clinic if worsening pain, redness, swelling or fever tylenol 650 mg every 4 hours as needed may alternate with ibuprofen 600mg
[2020-05-19] MEDS ORDERED: Bacitracin Oint 1 GM U/D Packet TOP ONE (00:06)
[2020-05-19] MEDS ORDERED: Cephalexin 500 MG Cap PO ONE (00:06)
[2020-05-19 00:08] VITALS: BP 136/83; PULSE 88
== END 2020-05-19 00:15 | disposition home or self-care (01) ==
LOC: DL.ED 23:54
DX: R59.0 Localized enlarged lymph nodes (principal); L08.9 Local infection of the skin and subcutaneous tissue, unspecified; Z88.5 Allergy status to narcotic agent; Z88.4 Allergy status to anesthetic agent; Z88.8 Allergy status to other drugs, medicaments and biological substances; Z79.899 Other long term (current) drug therapy
CPT/HCPCS: 99283; A9270

== ENCOUNTER 2020-06-04 02:06 | Emergency (ER) | payer MEDICAID ==
[2020-06-04] MEDS ORDERED: Promethazine 25 MG/ML SDV IM ONE (02:21)
[2020-06-04] MEDS ORDERED: Butorphanol 2 MG/ML SDV IM ONE (02:21)
[2020-06-04 02:22] VITALS: BP 146/96; PULSE 78
--- NOTE | 2020-06-04 02:28 | EDM.PDOC ---
ED HPI GENERAL MEDICAL PROBLEM - General Chief Complaint: Headache Stated Complaint: SEVERE HEADACHE Time Seen by Provider: 06/04/20 02:10 Source of Information: Reports: Patient History Limitations: Reports: No Limitations - History of Present Illness INITIAL COMMENTS - FREE TEXT/NARRATIVE: This 29 yo female patient reports to the ED with a migraine headache for the past 2 days. The patient reports she has messaged Dr. Gallego and was advised to increase her Topamax, but the patient's reports she talks about suicide when she takes Topamax, so she does not take that any longer. The patient reports Dr. Gallego had advised her not to be given Toradol due to her having rebound headaches from the Toradol. Onset Date: 06/02/20 Duration: Constant, Getting Worse Location: Reports: Head Quality: Reports: Ache, Stabbing Severity: Moderate Improves with: Reports: None Worsens with: Reports: None Context: Reports: Other Associated Symptoms: Reports: No Other Symptoms Treatments INTERIOR DESIGN DIRECTOR: Reports: Acetaminophen Left Headache Pain Score (Numeric/FACES): 9 - Related Data Allergies Allergy/AdvReac Type Severity Reaction Status Date / Time codeine Allergy Hallucinati Verified 05/19/20 00:08 ons procaine [From Novocain] Allergy Airway Verified 05/19/20 00:08 Tightness sumatriptan [From Imitrex] Allergy Vomiting Verified 05/19/20 00:08 Home Meds: Home Meds Ferrous Sulfate [Iron] 325 mg PO DAILY 07/20/19 [History] Topiramate [Trokendi Xr] 25 mg PO DAILY 07/20/19 [History] Past Medical History - Past Health History Medical/Surgical History: Denies Medical/Surgical History HEENT History: Reports: None Cardiovascular History: Reports: None Respiratory History: Reports: None Gastrointestinal History: Reports: Cholelithiasis, GERD Other Gastrointestinal History: positive gallstones Genitourinary History: Reports: None 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: , 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 Musculoskeletal History: Reports: None Neurological History: Reports: Migraines Psychiatric History: Reports: Depression Endocrine/Metabolic History: Reports: Other (See Below) Other Endocrine/Metabolic History: impaired glucose tolerance test Hematologic History: Reports: Anemia Immunologic History: Reports: None Oncologic (Cancer) History: Reports: None Dermatologic History: Reports: None - Infectious Disease History Infectious Disease History: Reports: Chicken Pox - Past Surgical History Head Surgeries/Procedures: Reports: None HEENT Surgical History: Reports: Oral Surgery GI Surgical History: Reports: Cholecystectomy Female Surgical History: Reports: Section, Hysterectomy, Tubal Ligation Musculoskeletal Surgical History: Reports: Carpal Tunnel, Other (See Below) Other Musculoskeletal Surgeries/Procedures:: surgery to right hand Social & Family History - Family History Family Medical History: No Pertinent Family History Cardiac: Reports: Hypertension Neurological: Reports: Migraines Endocrine/Metabolic: Reports: Diabetes, type II - Tobacco Use Tobacco Use Status *Q: Current Every Day Tobacco User Years of Tobacco use: 10 Packs/Tins Daily: 0.5 - Caffeine Use Caffeine Use: Reports: Soda Other Caffeine Use: 5/day - Recreational Drug Use Recreational Drug Use: No - Living Situation & Occupation Living situation: Reports: with Significant Other, with Family Occupation: Unemployed ED ROS GENERAL - Review of Systems Review Of Systems: Comprehensive ROS is negative, except as noted in HPI. - Physical Exam Exam: See Below Exam Limited By: No Limitations General Appearance: Alert, WD/WN, Moderate Distress, Obese Eye Exam: Bilateral Eye: EOMI, Normal Inspection, PERRL, Other (Light sensitive) Ears: Normal External Exam, Normal Canal, Hearing Grossly Normal, Normal TMs Nose: Normal Inspection, Normal Mucosa, No Blood Throat/Mouth: Normal Inspection, Normal Lips, Normal Teeth, Normal Gums, Normal Oropharynx, Normal Voice, No Airway Compromise Head Exam: Atraumatic, Normocephalic Neck: Normal Inspection, Supple, Non-Tender, Full Range of Motion Respiratory/Chest: No Respiratory Distress, Lungs Clear, Normal Breath Sounds, No Accessory Muscle Use, Chest Non-Tender Cardiovascular: Normal Peripheral Pulses, Regular Rate, Rhythm, No Edema, No Gallop, No JVD, No Murmur, No Rub GI/Abdominal: Normal Bowel Sounds (Female) Exam: Deferred Rectal (Female) Exam: Deferred Neuro Exam (Abbreviated): Alert, Oriented, CN II-XII Intact, Normal Cognition, Normal Gait, Normal Reflexes, No Motor/Sensory Deficits Back Exam: Normal Inspection, Full Range of Motion, NT Extremities: Normal Inspection, Normal Range of Motion, Non-Tender, No Pedal Edema, Normal Capillary Refill Psychiatric: Normal Affect, Depressed Mood Skin Exam: Warm, Dry, Intact, Normal Color, No Rash Course - Vital Signs Last Recorded V/S: Last Vital Signs Temp 36.6 C 06/04/20 02:13 Pulse 78 06/04/20 02:13 Resp 19 06/04/20 02:13 BP 146/96 H 06/04/20 02:13 Pulse Ox 100 06/04/20 02:13 - Orders/Labs/Meds Meds: Medications Discontinued Medications Generic Name Dose Route Start Last Admin Trade Name Yang PRN Reason Stop Dose Admin Butorphanol Tartrate 2 mg 06/04/20 02:21 Butorphanol 2 Mg/Ml Sdv IM 06/04/20 02:22 ONETIME ONE Promethazine HCl 25 mg 06/04/20 02:21 Promethazine 25 Mg/Ml Sdv IM 06/04/20 02:22 ONETIME ONE Departure - Departure Time of Disposition: 02:25 Disposition: Home, Self-Care 01 Condition: Fair Clinical Impression: Migraine - Discharge Information *PRESCRIPTION DRUG MONITORING PROGRAM REVIEWED*: Not Applicable *COPY OF PRESCRIPTION DRUG MONITORING REPORT IN PATIENT YVON: Not Applicable Instructions: Recurrent Migraine Headache, [id number] Care Plan Goals: The patient was advised of the examination results. The patient was given an injection of Stadol and Phenergan while in the ED. The patient was encouraged to increase he oral fluid intake. The patient should follow-up with Dr. Gallego for continued evaluation and further treatment for migraine headaches. If the patie nt has any additional symptoms or concerns, the patient should either return to the emergency department or visit her primary care facility. Sepsis Event Note (ED) - Evaluation Sepsis Screening Result: No Definite Risk - Focused Exam Vital Signs: Vital Signs Temp Pulse Resp BP Pulse Ox 06/04/20 02:13 36.6 C 78 19 146/96 H 100
== END 2020-06-04 02:45 | disposition home or self-care (01) ==
LOC: DL.ED 02:06
DX: G43.909 Migraine, unspecified, not intractable, without status migrainosus (principal); Z88.4 Allergy status to anesthetic agent; Z88.8 Allergy status to other drugs, medicaments and biological substances; Z79.899 Other long term (current) drug therapy; Z72.0 Tobacco use
CPT/HCPCS: 96372; 99283; J0595; J2550

== ENCOUNTER 2020-06-05 01:28 | Emergency (ER) | payer MEDICAID ==
[2020-06-05] MEDS ORDERED: Sodium Chloride 0.9% 1,000 ML IV ONE (01:42)
[2020-06-05] MEDS ORDERED: Ondansetron 4 MG/2 ML SDV IVPUSH ONE (01:42)
[2020-06-05 01:43] VITALS: BP 137/78; PULSE 59
--- NOTE | 2020-06-05 01:50 | EDM.PDOC ---
ED HPI GENERAL MEDICAL PROBLEM - General Chief Complaint: Headache Stated Complaint: SEVERVE HEADACHE, HAND AND LIPS NUMB Time Seen by Provider: 06/05/20 01:35 Source of Information: Reports: Patient, Family History Limitations: Reports: No Limitations - History of Present Illness INITIAL COMMENTS - FREE TEXT/NARRATIVE: This 29 yo female patient reports to the ED with a headache. The patient reports her headache has been ongoing for the past 3 days. The patient also reports she has some numbness to her lower lip and "tunnel vision" tonight. The patient denies any recent head trauma. The patient reports she has messaged Dr. Gallego regarding her headache and he wants her to see the blood specialist, According to the patient and her , Dr. Gallego did not offer any additional assistance. The patient reports she has take Tylenol with no symptom relief. The patient was seen yesterday with similar symptoms was given an injection of Phenergan and Stadol which resulted in some temporary symptom relief. The patient reports her headache got much worse this afternoon. The patient reports she could not make it into the ED prior to this time due to returning from seeing her husbands ill family member. The patient does admit she still has not taken her Topamax as prescribed due to thoughts of harming herself. The patient reports she has not had any increased stress with the illness of her 's family. The patient does reports she has been drinking increased amounts of fluid. This patient has been seen in the ED numerous times with similar symptoms. The patient reports Dr. Gallego has advised her not to be given Toradol due to rebound headaches from the Toradol. Onset Date: 06/01/20 Duration: Constant Location: Reports: Head Quality: Reports: Other Severity: Moderate Improves with: Reports: None Worsens with: Reports: None Context: Reports: Other Associated Symptoms: Reports: No Other Symptoms Treatments DENTIST: Reports: Acetaminophen Headache Pain Score (Numeric/FACES): 9 - Related Data Allergies Allergy/AdvReac Type Severity Reaction Status Date / Time codeine Allergy Hallucinati Verified 06/05/20 01:38 ons procaine [From Novocain] Allergy Airway Verified 06/05/20 01:38 Tightness sumatriptan [From Imitrex] Allergy Vomiting Verified 06/05/20 01:38 Home Meds: Home Meds Ferrous Sulfate [Iron] 325 mg PO DAILY 07/20/19 [History] Topiramate [Trokendi Xr] 25 mg PO DAILY 07/20/19 [History] Cyanocobalamin (Vitamin B-12) [Vitamin B-12] 1,000 mcg PO DAILY 06/05/20 [History] Past Medical History - Past Health History Medical/Surgical History: Denies Medical/Surgical History HEENT History: Reports: None Cardiovascular History: Reports: None Respiratory History: Reports: None Gastrointestinal History: Reports: Cholelithiasis, GERD Other Gastrointestinal History: positive gallstones Genitourinary History: Reports: None 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: , 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 Musculoskeletal History: Reports: None Neurological History: Reports: Migraines Psychiatric History: Reports: Depression Endocrine/Metabolic History: Reports: Other (See Below) Other Endocrine/Metabolic History: impaired glucose tolerance test Hematologic History: Reports: Anemia Immunologic History: Reports: None Oncologic (Cancer) History: Reports: None Dermatologic History: Reports: None - Infectious Disease History Infectious Disease History: Reports: Chicken Pox - Past Surgical History Head Surgeries/Procedures: Reports: None HEENT Surgical History: Reports: Oral Surgery GI Surgical History: Reports: Cholecystectomy Female Surgical History: Reports: Section, Hysterectomy, Tubal Ligation Musculoskeletal Surgical History: Reports: Carpal Tunnel, Other (See Below) Other Musculoskeletal Surgeries/Procedures:: surgery to right hand Social & Family History - Family History Family Medical History: No Pertinent Family History Cardiac: Reports: Hypertension Neurological: Reports: Migraines Endocrine/Metabolic: Reports: Diabetes, type II - Caffeine Use Caffeine Use: Reports: Soda Other Caffeine Use: 5/day - Living Situation & Occupation Living situation: Reports: with Significant Other, with Family Occupation: Unemployed ED ROS GENERAL - Review of Systems Review Of Systems: Comprehensive ROS is negative, except as noted in HPI. - Physical Exam Exam: See Below Exam Limited By: No Limitations General Appearance: Alert, WD/WN, Moderate Distress, Obese Eye Exam: Bilateral Eye: EOMI, Normal Inspection, PERRL Ears: Normal External Exam, Normal Canal, Hearing Grossly Normal, Normal TMs Nose: Normal Inspection, Normal Mucosa, No Blood Throat/Mouth: Normal Inspection, Normal Lips, Normal Teeth, Normal Gums, Normal Oropharynx, Normal Voice, No Airway Compromise Head Exam: Atraumatic, Normocephalic Neck: Normal Inspection, Supple, Non-Tender, Full Range of Motion Respiratory/Chest: No Respiratory Distress, Lungs Clear, Normal Breath Sounds, No Accessory Muscle Use, Chest Non-Tender Cardiovascular: Normal Peripheral Pulses, Regular Rate, Rhythm, No Edema, No Gallop, No JVD, No Murmur, No Rub GI/Abdominal: Normal Bowel Sounds, Soft, Non-Tender, No Organomegaly, No Distention, No Abnormal Bruit, No Mass, Other (obese) (Female) Exam: Deferred Rectal (Female) Exam: Deferred Neuro Exam (Abbreviated): Alert, Oriented, CN II-XII Intact, Normal Cognition, Normal Gait, Normal Reflexes, No Motor/Sensory Deficits Back Exam: Normal Inspection, Full Range of Motion, NT Extremities: Normal Inspection, Normal Range of Motion, Non-Tender, No Pedal Edema, Normal Capillary Refill Psychiatric: Depressed Mood, Flat Affect Skin Exam: Warm, Dry, Intact, Normal Color, No Rash Course - Vital Signs Last Recorded V/S: Last Vital Signs Temp 36.8 C 06/05/20 01:35 Pulse 59 L 06/05/20 01:35 Resp 16 06/05/20 01:35 BP 137/78 06/05/20 01:35 Pulse Ox 100 06/05/20 01:35 - Orders/Labs/Meds Orders: Active Orders 24 hr Category Date Time Status Butorphanol [Stadol] Med 06/05/20 03:07 Once 2 mg IVPUSH ONETIME ONE Labs: Laboratory Tests 06/05/20 06/05/20 06/05/20 Range/Units 01:41 01:42 01:50 WBC 16.8 H (5.0-10.0) 10^3/uL RBC 5.00 (4.2-5.4) 10^6/uL Hgb 15.7 (12.0-16.0) g/dL Hct 47.1 H (37.0-47.0) % MCV 94.2 (80-100) fL MCH 31.4 (27.0-34.0) pg MCHC 33.3 (33.0-35.0) g/dL Plt Count 332 (150-450) 10^3/uL Neut % (Auto) 47.5 (42.2-75.2) % Lymph % (Auto) 44.1 (20.5-50.1) % [place] % (Auto) 6.5 (2-8) % Eos % (Auto) 1.6 (1.0-3.0) % Baso % (Auto) 0.3 (0.0-1.0) % Sodium (136-145) mmol/L Potassium (3.5-5.1) mmol/L Chloride (98-107) mmol/L Carbon Dioxide (21-32) mmol/L Anion Gap (7-13) mEq/L BUN (7-18) mg/dL Creatinine (0.55-1.02) mg/dL Est Cr Clr Drug Dosing mL/min Estimated GFR (MDRD) BUN/Creatinine Ratio (No establ ref range) Glucose (70-99) mg/dL Calcium (8.5-10.1) mg/dL Total Bilirubin (0.2-1.0) mg/dL AST (15-37) U/L ALT (14-59) U/L Alkaline Phosphatase (46-116) U/L Total Protein (6.4-8.2) g/dL Albumin (3.4-5.0) g/dL Globulin Albumin/Globulin Ratio Urine Color Yellow (YELLOW) Urine Appearance Clear (CLEAR) Urine pH 7.0 (5.0-9.0) Ur Specific [place] 1.010 (1.005-1.030) Urine Protein Negative (NEGATIVE) Urine Glucose (UA) Negative (NEGATIVE) Urine Ketones Negative (NEGATIVE) Urine Occult Blood Negative (NEGATIVE) Urine Nitrite Negative (NEGATIVE) Urine Bilirubin Negative (NEGATIVE) Urine Urobilinogen 0.2 (0.2-1.0) mg/dL Ur Leukocyte Esterase Negative (NEGATIVE) Urine Opiates Screen Negative (NEGATIVE) Ur Oxycodone Screen Negative (NEGATIVE) Urine Methadone Screen Negative (NEGATIVE) Ur Barbiturates Screen Negative (NEGATIVE) U Tricyclic Antidepress Negative (NEGATIVE) Ur Phencyclidine Scrn Negative (NEGATIVE) Ur Amphetamine Screen Negative (NEGATIVE) U Methamphetamines Scrn Negative (NEGATIVE) Urine MDMA Screen Negative (NEGATIVE) U Benzodiazepines Scrn Negative (NEGATIVE) Urine Cocaine Screen Negative (NEGATIVE) U Marijuana (THC) Screen Negative (NEGATIVE) 06/05/20 Range/Units 01:50 WBC (5.0-10.0) 10^3/uL RBC (4.2-5.4) 10^6/uL Hgb (12.0-16.0) g/dL Hct (37.0-47.0) % MCV (80-100) fL MCH (27.0-34.0) pg MCHC (33.0-35.0) g/dL Plt Count (150-450) 10^3/uL Neut % (Auto) (42.2-75.2) % Lymph % (Auto) (20.5-50.1) % [place] % (Auto) (2-8) % Eos % (Auto) (1.0-3.0) % Baso % (Auto) (0.0-1.0) % Sodium 141 (136-145) mmol/L Potassium 3.7 (3.5-5.1) mmol/L Chloride 105 (98-107) mmol/L Carbon Dioxide 25 (21-32) mmol/L Anion Gap 14.7 H (7-13) mEq/L BUN 8 (7-18) mg/dL Creatinine 0.80 (0.55-1.02) mg/dL Est Cr Clr Drug Dosing 85.06 mL/min Estimated GFR (MDRD) > 60 BUN/Creatinine Ratio 10.0 (No establ ref range) Glucose 99 (70-99) mg/dL Calcium 8.2 L (8.5-10.1) mg/dL Total Bilirubin 0.3 (0.2-1.0) mg/dL AST 25 (15-37) U/L ALT 40 (14-59) U/L Alkaline Phosphatase 103 (46-116) U/L Total Protein 7.0 (6.4-8.2) g/dL Albumin 3.5 (3.4-5.0) g/dL Globulin 3.5 Albumin/Globulin Ratio 1.0 Urine Color (YELLOW) Urine Appearance (CLEAR) Urine pH (5.0-9.0) Ur Specific [place] (1.005-1.030) Urine Protein (NEGATIVE) Urine Glucose (UA) (NEGATIVE) Urine Ketones (NEGATIVE) Urine Occult Blood (NEGATIVE) Urine Nitrite (NEGATIVE) Urine Bilirubin (NEGATIVE) Urine Urobilinogen (0.2-1.0) mg/dL Ur Leukocyte Esterase (NEGATIVE) Urine Opiates Screen (NEGATIVE) Ur Oxycodone Screen (NEGATIVE) Urine Methadone Screen (NEGATIVE) Ur Barbiturates Screen (NEGATIVE) U Tricyclic Antidepress (NEGATIVE) Ur Phencyclidine Scrn (NEGATIVE) Ur Amphetamine Screen (NEGATIVE) U Methamphetamines Scrn (NEGATIVE) Urine MDMA Screen (NEGATIVE) U Benzodiazepines Scrn (NEGATIVE) Urine Cocaine Screen (NEGATIVE) U Marijuana (THC) Screen (NEGATIVE) Meds: Medications Discontinued Medications Generic Name Dose Route Start Last Admin Trade Name Yang PRN Reason Stop Dose Admin Sodium Chloride 1,000 mls @ 999 mls/hr 06/05/20 01:42 06/05/20 01:53 Normal Saline IV 06/05/20 02:42 999 mls/hr .BOLUS ONE Administration Ondansetron HCl 4 mg 06/05/20 01:42 06/05/20 01:53 Ondansetron 4 Mg/2 Ml Sdv IVPUSH 06/05/20 01:43 4 mg ONETIME ONE Administration Departure - Departure Time of Disposition: 03:07 Disposition: Home, Self-Care 01 Condition: Fair Clinical Impression: Migraine - Discharge Information *PRESCRIPTION DRUG MONITORING PROGRAM REVIEWED*: Yes *COPY OF PRESCRIPTION DRUG MONITORING REPORT IN PATIENT YVON: Yes Instructions: Migraine Headache, [id number] Forms: ED Department Discharge Care Plan Goals: The patient was advised of the examination, lab and CT results during the visit. The patient was given a liter of IV fluid, IV Reglan and IV Stadol during the visit. The patient was encouraged to reduce her activity level over the next 24 hours. If the patient has any additional symptoms or concerns, the patient should either return to the emergency department or visit her primary care facility. Sepsis Event Note (ED) - Evaluation Sepsis Screening Result: No Definite Risk - Focused Exam Vital Signs: Vital Signs Temp Pulse Resp BP Pulse Ox 06/05/20 01:35 36.8 C 59 L 16 137/78 100 - My Orders Last 24 Hours: My Active Orders 06/05/20 03:07 Butorphanol [Stadol] 2 mg IVPUSH ONETIME ONE - Assessment/Plan Last 24 Hours: My Active Orders 06/05/20 03:07 Butorphanol [Stadol] 2 mg IVPUSH ONETIME ONE
[2020-06-05 02:13] LABS: ANION GAP 14.7 mEq/L (7-13); CHLORIDE,CL 105 mmol/L (98-107); SODIUM,NA 141 mmol/L (136-145)
--- NOTE | 2020-06-05 03:01 | CT ---
PROCEDURE INFORMATION: Exam: CT Head Without Contrast Exam date and time: 06/05/2020 2:06 AM Age: 29 years old Clinical indication: Other: Headache TECHNIQUE: Imaging protocol: Computed tomography of the head without contrast. Radiation optimization: All CT scans at this facility use at least one of these dose optimization techniques: automated exposure control; mA and/or kV adjustment per patient size (includes targeted exams where dose is matched to clinical indication); or iterative reconstruction. COMPARISON: CT Head wo Cont 07/25/2018 12:10 AM FINDINGS: Brain: There is diminished attenuation in the posterior temporal and occipital lobes bilaterally. No acute intracranial hemorrhage. Ventricles are symmetric. There is associated diminished attenuation in the left cerebellar hemisphere. Cerebral ventricles: See "Brain" finding. Bones/joints: Unremarkable. No acute fracture. Paranasal sinuses: Visualized sinuses are unremarkable. No fluid levels. Mastoid air cells: Visualized mastoid air cells are well aerated. Soft tissues: Extracalvarial soft tissues are unremarkable. IMPRESSION: Diffuse moderately symmetric low-attenuation associated with the posterior occipital and medial temporal lobes. This may be related to posterior versus: Cephalopathy syndrome. Please correlate with the clinical setting. In the appropriate clinical setting further assessment may be considered with MRI.
[2020-06-05] MEDS ORDERED: Butorphanol 2 MG/ML SDV IVPUSH ONE (03:07)
== END 2020-06-05 03:20 | disposition home or self-care (01) ==
LOC: DL.ED 01:28
DX: G43.909 Migraine, unspecified, not intractable, without status migrainosus (principal); Z88.5 Allergy status to narcotic agent; Z88.4 Allergy status to anesthetic agent; Z88.1 Allergy status to other antibiotic agents; Z79.899 Other long term (current) drug therapy
CPT/HCPCS: 36415; 70450; 80053; 80305-QW; 81003; 85025; 96374; 96375; 99284-25; J0595; J2405; J7030

== ENCOUNTER 2020-06-10 00:51 | Emergency (ER) | payer MEDICAID ==
[2020-06-10 01:03] VITALS: BP 129/89; PULSE 80
[2020-06-10] MEDS ORDERED: Promethazine 25 MG/ML SDV IM ONE (01:11)
[2020-06-10] MEDS ORDERED: Butorphanol 2 MG/ML SDV IVPUSH ONE (01:11)
[2020-06-10] MEDS ORDERED: Butorphanol 2 MG/ML SDV IM ONE (01:12)
--- NOTE | 2020-06-10 01:32 | EDM.PDOC ---
ED HPI GENERAL MEDICAL PROBLEM - General Chief Complaint: Headache Stated Complaint: MIGRAINE Time Seen by Provider: 06/10/20 01:00 Source of Information: Reports: Patient, RN History Limitations: Reports: No Limitations - History of Present Illness INITIAL COMMENTS - FREE TEXT/NARRATIVE: ED with c/o headache for 2 weeks, same as usual but stronger and not going away. Tried tylenol but not helpiing, some nausea, vomiting. No fever or chills. Appointment later today for follow up with Dr. Gallego Headache Pain Score (Numeric/FACES): 10 - Related Data Allergies Allergy/AdvReac Type Severity Reaction Status Date / Time codeine Allergy Hallucinati Verified 06/10/20 01:00 ons procaine [From Novocain] Allergy Airway Verified 06/10/20 01:00 Tightness sumatriptan [From Imitrex] Allergy Vomiting Verified 06/10/20 01:00 Home Meds: Home Meds Ferrous Sulfate [Iron] 325 mg PO DAILY 07/20/19 [History] Topiramate [Trokendi Xr] 25 mg PO DAILY 07/20/19 [History] Cyanocobalamin (Vitamin B-12) [Vitamin B-12] 1,000 mcg PO DAILY 06/05/20 [History] Past Medical History - Past Health History Medical/Surgical History: Denies Medical/Surgical History HEENT History: Reports: None Cardiovascular History: Reports: None Respiratory History: Reports: None Gastrointestinal History: Reports: Cholelithiasis, GERD Other Gastrointestinal History: positive gallstones Genitourinary History: Reports: None 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: , 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 Musculoskeletal History: Reports: None Neurological History: Reports: Migraines Psychiatric History: Reports: Depression Endocrine/Metabolic History: Reports: Other (See Below) Other Endocrine/Metabolic History: impaired glucose tolerance test Hematologic History: Reports: Anemia Immunologic History: Reports: None Oncologic (Cancer) History: Reports: None Dermatologic History: Reports: None - Infectious Disease History Infectious Disease History: Reports: Chicken Pox - Past Surgical History Head Surgeries/Procedures: Reports: None HEENT Surgical History: Reports: Oral Surgery GI Surgical History: Reports: Cholecystectomy Female Surgical History: Reports: Section, Hysterectomy, Tubal Ligation Musculoskeletal Surgical History: Reports: Carpal Tunnel, Other (See Below) Other Musculoskeletal Surgeries/Procedures:: surgery to right hand Social & Family History - Family History Family Medical History: No Pertinent Family History Cardiac: Reports: Hypertension Neurological: Reports: Migraines Endocrine/Metabolic: Reports: Diabetes, type II - Tobacco Use Tobacco Use Status *Q: Current Every Day Tobacco User Years of Tobacco use: 10 Packs/Tins Daily: 0.3 Used Tobacco, but Quit: No Second Hand Smoke Exposure: Yes - Caffeine Use Caffeine Use: Reports: Soda Other Caffeine Use: 5/day - Recreational Drug Use Recreational Drug Use: No - Living Situation & Occupation Living situation: Reports: with Significant Other, with Family Occupation: Unemployed ED ROS GENERAL - Review of Systems Review Of Systems: Comprehensive ROS is negative, except as noted in HPI. - Physical Exam Exam: See Below Exam Limited By: No Limitations General Appearance: Alert, No Apparent Distress Eye Exam: Bilateral Eye: EOMI Ears: Normal External Exam Nose: Normal Inspection Throat/Mouth: Normal Inspection Head Exam: Atraumatic Neck: Normal Inspection, Non-Tender, Full Range of Motion. No: Limited Range of Motion Respiratory/Chest: No Respiratory Distress, Lungs Clear, Normal Breath Sounds Cardiovascular: Normal Peripheral Pulses, Regular Rate, Rhythm (Female) Exam: Normal Speculum Exam Neuro Exam (Abbreviated): Alert, Oriented, Normal Cognition Psychiatric: Normal Affect, Tearful Skin Exam: Warm, Dry, Intact, Normal Color, No Rash Course - Vital Signs Last Recorded V/S: Last Vital Signs Temp 98.5 F 06/10/20 00:55 Pulse 80 06/10/20 00:55 Resp 18 06/10/20 00:55 BP 129/89 06/10/20 00:55 Pulse Ox 100 06/10/20 00:55 - Orders/Labs/Meds Labs: Laboratory Tests 06/10/20 06/10/20 Range/Units 01:20 01:20 WBC 12.4 H (5.0-10.0) 10^3/uL RBC 5.09 (4.2-5.4) 10^6/uL Hgb 15.8 (12.0-16.0) g/dL Hct 47.0 (37.0-47.0) % MCV 92.3 (80-100) fL MCH 31.0 (27.0-34.0) pg MCHC 33.6 (33.0-35.0) g/dL Plt Count 306 (150-450) 10^3/uL Neut % (Auto) 48.2 (42.2-75.2) % Lymph % (Auto) 42.1 (20.5-50.1) % Weber % (Auto) 8.2 H (2-8) % Eos % (Auto) 1.3 (1.0-3.0) % Baso % (Auto) 0.2 (0.0-1.0) % Sodium 140 (136-145) mmol/L Potassium 4.0 (3.5-5.1) mmol/L Chloride 104 (98-107) mmol/L Carbon Dioxide 27 (21-32) mmol/L Anion Gap 13.0 (7-13) mEq/L BUN 7 (7-18) mg/dL Creatinine 0.77 (0.55-1.02) mg/dL Est Cr Clr Drug Dosing 88.37 mL/min Estimated GFR (MDRD) > 60 Glucose 85 (70-99) mg/dL Calcium 8.9 (8.5-10.1) mg/dL C-Reactive Protein 0.2 (0.0-0.9) mg/dL Meds: Medications Discontinued Medications Generic Name Dose Route Start Last Admin Trade Name Freq PRN Reason Stop Dose Admin Butorphanol Tartrate 2 mg 06/10/20 01:12 06/10/20 01:20 Butorphanol 2 Mg/Ml Sdv IM 06/10/20 01:13 2 mg ONETIME ONE Administration Promethazine HCl 25 mg 06/10/20 01:11 06/10/20 01:21 Promethazine 25 Mg/Ml Sdv IM 06/10/20 01:12 25 mg ONETIME ONE Administration Departure - Departure Time of Disposition: 01:30 Disposition: Home, Self-Care 01 Condition: Good Clinical Impression: Chronic headache Qualifiers: Headache type: unspecified Intractability: intractable Qualified Code(s): R51.9 - Headache, unspecified - Discharge Information *PRESCRIPTION DRUG MONITORING PROGRAM REVIEWED*: No *COPY OF PRESCRIPTION DRUG MONITORING REPORT IN PATIENT YVON: No Instructions: Migraine Headache, [id number] Referrals: PCP,None [Primary Care Provider] - Forms: ED Department Discharge Additional Instructions: rest fluids follow up with Dr Gallego as scheduled today Sepsis Event Note (ED) - Evaluation Sepsis Screening Result: No Definite Risk - Focused Exam Vital Signs: Vital Signs Temp Pulse Resp BP Pulse Ox 06/10/20 00:55 98.5 F 80 18 129/89 100
[2020-06-10 01:53] LABS: CHLORIDE,CL 104 mmol/L (98-107); SODIUM,NA 140 mmol/L (136-145)
== END 2020-06-10 01:37 | disposition home or self-care (01) ==
LOC: DL.ED 00:51
DX: R51.9 Headache, unspecified (principal); Z88.5 Allergy status to narcotic agent; Z88.4 Allergy status to anesthetic agent; Z88.8 Allergy status to other drugs, medicaments and biological substances; Z79.899 Other long term (current) drug therapy; Z72.0 Tobacco use
CPT/HCPCS: 36415; 80048; 85025; 86140; 96372; 99283; 99284; J0595; J2550

== ENCOUNTER 2020-08-14 23:59 | Emergency (ER) | payer MEDICAID ==
[2020-08-15 00:55] VITALS: BP 143/90; PULSE 92
[2020-08-15] MEDS ORDERED: Ketorolac 30 MG/ML SDV IM ONE (00:55)
[2020-08-15] MEDS ORDERED: Orphenadrine 60 MG/2 ML Inj IM ONE (00:59)
--- NOTE | 2020-08-15 02:00 | EDM.PDOC ---
ED HPI GENERAL MEDICAL PROBLEM - General Chief Complaint: Back Pain or Injury Stated Complaint: TWISTED BACK Time Seen by Provider: 08/15/20 00:55 Source of Information: Reports: Patient, RN History Limitations: Reports: No Limitations - History of Present Illness INITIAL COMMENTS - FREE TEXT/NARRATIVE: D ambulatory with c/o back pain, mid right after getting into car. No fever or chills, pain worse with movement. Right Lower Back Pain Score (Numeric/FACES): 8 - Related Data Allergies Allergy/AdvReac Type Severity Reaction Status Date / Time codeine Allergy Hallucinati Verified 06/10/20 01:00 ons procaine [From Novocain] Allergy Airway Verified 06/10/20 01:00 Tightness sumatriptan [From Imitrex] Allergy Vomiting Verified 06/10/20 01:00 Home Meds: Home Meds Ferrous Sulfate [Iron] 325 mg PO DAILY 07/20/19 [History] Topiramate [Trokendi Xr] 25 mg PO DAILY 07/20/19 [History] Cyanocobalamin (Vitamin B-12) [Vitamin B-12] 1,000 mcg PO DAILY 06/05/20 [History] Past Medical History - Past Health History Medical/Surgical History: Denies Medical/Surgical History HEENT History: Reports: None Cardiovascular History: Reports: None Respiratory History: Reports: None Gastrointestinal History: Reports: Cholelithiasis, GERD Other Gastrointestinal History: positive gallstones Genitourinary History: Reports: None 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: , 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 Musculoskeletal History: Reports: None Neurological History: Reports: Migraines Psychiatric History: Reports: Depression Endocrine/Metabolic History: Reports: Other (See Below) Other Endocrine/Metabolic History: impaired glucose tolerance test Hematologic History: Reports: Anemia Immunologic History: Reports: None Oncologic (Cancer) History: Reports: None Dermatologic History: Reports: None - Infectious Disease History Infectious Disease History: Reports: Chicken Pox - Past Surgical History Head Surgeries/Procedures: Reports: None HEENT Surgical History: Reports: Oral Surgery GI Surgical History: Reports: Cholecystectomy Female Surgical History: Reports: Section, Hysterectomy, Tubal Ligation Musculoskeletal Surgical History: Reports: Carpal Tunnel, Other (See Below) Other Musculoskeletal Surgeries/Procedures:: surgery to right hand Social & Family History - Family History Family Medical History: No Pertinent Family History Cardiac: Reports: Hypertension Neurological: Reports: Migraines Endocrine/Metabolic: Reports: Diabetes, type II - Tobacco Use Tobacco Use Status *Q: Current Every Day Tobacco User Years of Tobacco use: 15 Packs/Tins Daily: 0.5 - Caffeine Use Caffeine Use: Reports: Soda Other Caffeine Use: 5/day - Recreational Drug Use Recreational Drug Use: No - Living Situation & Occupation Living situation: Reports: with Significant Other, with Family Occupation: Unemployed ED ROS GENERAL - Review of Systems Review Of Systems: Comprehensive ROS is negative, except as noted in HPI. ED EXAM,LOWER BACK PAIN/INJURY - Physical Exam Exam: See Below Exam Limited By: No Limitations General Appearance: Alert, Anxious, Mild Distress, Obese Eye Exam: Bilateral Eye: EOMI, PERRL Ears: Normal External Exam Nose: Normal Inspection Throat/Mouth: Normal Inspection Head: Atraumatic, Normocephalic Neck: Normal Inspection Respiratory/Chest: No Respiratory Distress, Lungs Clear, Normal Breath Sounds Cardiovascular: Normal Peripheral Pulses, Regular Rate, Rhythm GI/Abdominal: Soft Back Exam: Muscle Spasm (right mid to low), Paraspinal Tenderness. No: CVA Tenderness (R), Vertebral Tenderness Extremities: Normal Inspection Neurological: Normal Gait, Oriented x 3, Straight Leg Raise (R). No: Saddle Anesthesia, Difficulty Walking Psychiatric: Normal Affect, Normal Mood Skin Exam: Warm, Dry, Intact, Normal Color Course - Vital Signs Last Recorded V/S: Last Vital Signs Temp 98.4 F 08/15/20 00:53 Pulse 92 08/15/20 00:53 Resp 16 08/15/20 00:53 BP 143/90 H 08/15/20 00:53 Pulse Ox 100 08/15/20 00:53 - Orders/Labs/Meds Meds: Medications Discontinued Medications Generic Name Dose Route Start Last Admin Trade Name Freq PRN Reason Stop Dose Admin Ketorolac Tromethamine 30 mg 08/15/20 00:55 08/15/20 01:07 Ketorolac 30 Mg/Ml Sdv IM 08/15/20 00:56 Not Given ONETIME ONE Orphenadrine Citrate 60 mg 08/15/20 00:59 08/15/20 01:07 Orphenadrine 60 Mg/2 Ml Inj IM 08/15/20 01:00 60 mg ONETIME ONE Administration Departure - Departure Time of Disposition: 01:55 Disposition: Home, Self-Care 01 Condition: Good Clinical Impression: Muscle spasm of back Back pain Qualifiers: Back pain location: low back pain Chronicity: acute Back pain laterality: right Sciatica presence: without sciatica Qualified Code(s): M54.5 - Low back pain - Discharge Information *PRESCRIPTION DRUG MONITORING PROGRAM REVIEWED*: No *COPY OF PRESCRIPTION DRUG MONITORING REPORT IN PATIENT YVON: No Instructions: Muscle Cramps and Spasms Additional Instructions: tylenol 500mg every 4 hours as needed for discomfort flexeril 10mg every 8 hours as needed alternate ice and heat jacob jason or other similar product as needed clinic follow up 3-4 days if not improving avoid heavy lifting, Sepsis Event Note (ED) - Evaluation Sepsis Screening Result: No Definite Risk - Focused Exam Vital Signs: Vital Signs Temp Pulse Resp BP Pulse Ox 08/15/20 00:53 98.4 F 92 16 143/90 H 100
== END 2020-08-15 02:03 | disposition home or self-care (01) ==
LOC: DL.ED 23:59
DX: M62.830 Muscle spasm of back (principal); D64.9 Anemia, unspecified; Z72.0 Tobacco use; Z88.5 Allergy status to narcotic agent; Z88.8 Allergy status to other drugs, medicaments and biological substances; Z79.899 Other long term (current) drug therapy
CPT/HCPCS: 96372; 99283; J2360

== ENCOUNTER 2020-08-23 23:53 | Emergency (ER) | payer MEDICAID ==
[2020-08-24 00:14] VITALS: BP 127/69; PULSE 92
[2020-08-24] MEDS ORDERED: Ondansetron 4 MG/2 ML SDV IV ONE (00:49)
[2020-08-24] MEDS ORDERED: Sodium Chloride 0.9% 1,000 ML IV ONE (00:49)
[2020-08-24] MEDS ORDERED: Butorphanol 2 MG/ML SDV IVPUSH ONE (00:49)
[2020-08-24] MEDS ORDERED: diphenhydrAMINE 50 MG/ML SDV IVPUSH ONE (00:49)
--- NOTE | 2020-08-24 01:54 | EDM.PDOC ---
ED HPI GENERAL MEDICAL PROBLEM - General Chief Complaint: Headache Stated Complaint: MIGRAINE FOR 4 DAYS Time Seen by Provider: 08/24/20 00:20 Source of Information: Reports: Patient, RN, RN Notes Reviewed History Limitations: Reports: No Limitations - History of Present Illness INITIAL COMMENTS - FREE TEXT/NARRATIVE: Patient is a 29-year-old female who presents to ER with complaint of migraine headache. She states she had Botox injections this past week by her neurologist and states she has had a headache since then. Patient states she has been vomiting and unable to get the pain under control. Rates the pain an 8/10. Admits to nausea and vomiting. Patient states she has been told by her neurologist to take the Indocin only twice daily. She is to follow-up with her neurologist this week. Onset: Gradual Onset Date: 08/19/20 Headache Pain Score (Numeric/FACES): 9 - Related Data Allergies Allergy/AdvReac Type Severity Reaction Status Date / Time codeine Allergy Hallucinati Verified 08/24/20 00:10 ons ketorolac [From Toradol] Allergy Headache Verified 08/24/20 00:10 procaine [From Novocain] Allergy Airway Verified 08/24/20 00:10 Tightness sumatriptan [From Imitrex] Allergy Vomiting Verified 08/24/20 00:10 Home Meds: Home Meds Indomethacin 50 mg PO BID 08/24/20 [History] Past Medical History - Past Health History Medical/Surgical History: Denies Medical/Surgical History HEENT History: Reports: None Cardiovascular History: Reports: None Respiratory History: Reports: None Gastrointestinal History: Reports: Cholelithiasis, GERD Other Gastrointestinal History: positive gallstones Genitourinary History: Reports: None 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: , 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 Musculoskeletal History: Reports: None Neurological History: Reports: Migraines Psychiatric History: Reports: Depression Endocrine/Metabolic History: Reports: Other (See Below) Other Endocrine/Metabolic History: impaired glucose tolerance test Hematologic History: Reports: Anemia Immunologic History: Reports: None Oncologic (Cancer) History: Reports: None Dermatologic History: Reports: None - Infectious Disease History Infectious Disease History: Reports: Chicken Pox - Past Surgical History Head Surgeries/Procedures: Reports: None HEENT Surgical History: Reports: Oral Surgery GI Surgical History: Reports: Cholecystectomy Female Surgical History: Reports: Section, Hysterectomy, Tubal Ligation Musculoskeletal Surgical History: Reports: Carpal Tunnel, Other (See Below) Other Musculoskeletal Surgeries/Procedures:: surgery to right hand Social & Family History - Family History Family Medical History: No Pertinent Family History Cardiac: Reports: Hypertension Neurological: Reports: Migraines Endocrine/Metabolic: Reports: Diabetes, type II - Tobacco Use Tobacco Use Status *Q: Current Every Day Tobacco User Years of Tobacco use: 15 Packs/Tins Daily: 1 - Caffeine Use Caffeine Use: Reports: Soda Other Caffeine Use: 5/day - Recreational Drug Use Recreational Drug Use: No - Living Situation & Occupation Living situation: Reports: with Significant Other, with Family Occupation: Unemployed ED ROS GENERAL - Review of Systems Review Of Systems: Comprehensive ROS is negative, except as noted in HPI. - Physical Exam Exam: See Below Exam Limited By: No Limitations General Appearance: Alert, WD/WN, Moderate Distress Eye Exam: Bilateral Eye: EOMI, Normal Inspection Ears: Normal External Exam, Hearing Grossly Normal Nose: Normal Inspection Throat/Mouth: Normal Inspection, Normal Voice, No Airway Compromise Head Exam: Atraumatic, Normocephalic Neck: Normal Inspection, Supple, Non-Tender, Full Range of Motion Respiratory/Chest: No Respiratory Distress, Lungs Clear, Normal Breath Sounds, No Accessory Muscle Use, Chest Non-Tender Cardiovascular: Normal Peripheral Pulses, Regular Rate, Rhythm, No Edema, No Gallop, No JVD, No Murmur, No Rub GI/Abdominal: Normal Bowel Sounds, Soft, Non-Tender (Female) Exam: Deferred Rectal (Female) Exam: Deferred Neuro Exam (Abbreviated): Alert, Oriented, Normal Cognition, Normal Gait, No Motor/Sensory Deficits Back Exam: Normal Inspection, Full Range of Motion Extremities: Normal Inspection, Normal Range of Motion, Non-Tender, No Pedal Edema, Normal Capillary Refill Psychiatric: Normal Affect, Normal Mood Skin Exam: Warm, Dry, Intact, Normal Color, No Rash Course - Vital Signs Last Recorded V/S: Last Vital Signs Temp 100 F 08/24/20 00:11 Pulse 92 08/24/20 00:11 Resp 16 08/24/20 00:11 BP 127/69 08/24/20 00:11 Pulse Ox 100 08/24/20 00:11 - Orders/Labs/Meds Meds: Medications Discontinued Medications Generic Name Dose Route Start Last Admin Trade Name Freq PRN Reason Stop Dose Admin Butorphanol Tartrate 2 mg 08/24/20 00:49 08/24/20 00:56 Butorphanol 2 Mg/Ml Sdv IVPUSH 08/24/20 00:50 2 mg ONETIME ONE Administration Diphenhydramine HCl 50 mg 08/24/20 00:49 08/24/20 01:04 Diphenhydramine 50 Mg/Ml Sdv IVPUSH 08/24/20 00:50 50 mg ONETIME ONE Administration Sodium Chloride 1,000 mls @ 999 mls/hr 08/24/20 00:49 08/24/20 00:58 Normal Saline IV 08/24/20 01:49 999 mls/hr .BOLUS ONE Administration Ondansetron HCl 4 mg 08/24/20 00:49 08/24/20 00:59 Ondansetron 4 Mg/2 Ml Sdv IV 08/24/20 00:50 4 mg ONETIME ONE Administration - Re-Assessments/Exams Free Text/Narrative Re-Assessment/Exam: 08/24/20 01:56 Patient states headache is improved, feeling better. Departure - Departure Time of Disposition: 01:52 Disposition: Home, Self-Care 01 Condition: Fair Clinical Impression: Migraine - Discharge Information *PRESCRIPTION DRUG MONITORING PROGRAM REVIEWED*: No *COPY OF PRESCRIPTION DRUG MONITORING REPORT IN PATIENT YVON: No Instructions: Migraine Headache, [id number], Recurrent Migraine Headache, [id number] Forms: ED Department Discharge Additional Instructions: Drink plenty of fluids Take prescribed meds as ordered Follow-up with your primary care provider and your neurologist Sepsis Event Note (ED) - Evaluation Sepsis Screening Result: No Definite Risk - Focused Exam Vital Signs: Vital Signs Temp Pulse Resp BP Pulse Ox 08/24/20 00:11 100 F 92 16 127/69 100
== END 2020-08-24 02:13 | disposition home or self-care (01) ==
LOC: DL.ED 23:53
DX: G43.909 Migraine, unspecified, not intractable, without status migrainosus (principal); Z72.0 Tobacco use; Z88.5 Allergy status to narcotic agent; Z88.8 Allergy status to other drugs, medicaments and biological substances
CPT/HCPCS: 96374; 96375; 99283; J0595; J1200; J2405; J7030

== ENCOUNTER 2020-10-01 23:11 | Emergency (ER) | payer MEDICAID ==
[2020-10-01 23:23] VITALS: BP 130/90; PULSE 83
[2020-10-01] MEDS ORDERED: Sodium Chloride 0.9% 1,000 ML IV ONE (23:36)
[2020-10-01] MEDS ORDERED: Butorphanol 2 MG/ML SDV IVPUSH ONE (23:36)
[2020-10-01] MEDS ORDERED: Metoclopramide 10 MG/2 ML SDV IVPUSH ONE (23:36)
--- NOTE | 2020-10-01 23:43 | EDM.PDOC ---
ED HPI GENERAL MEDICAL PROBLEM - General Chief Complaint: Headache Stated Complaint: SEVERE HEADACHE Time Seen by Provider: 10/01/20 23:30 Source of Information: Reports: Patient History Limitations: Reports: No Limitations - History of Present Illness INITIAL COMMENTS - FREE TEXT/NARRATIVE: This 29 yo female patient reports to the ED with a migraine headache for the past week. The patient reports she has been taking Tylenol, ibuprofen and indomethacin with no symptom relief. The patient reports she has been working many hours and not getting enough rest. The patient did talk to Dr. Ross and attempted to get back into her neurologist. The patient reports she is currently changing neurologist due to a change at [facility] in [place]. The patient reports she has been attempting to drink plenty of fluids, but now feels nauseated and has vomited several times. 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: Acetaminophen, NSAIDS, Other Medication(s) - Related Data Allergies Allergy/AdvReac Type Severity Reaction Status Date / Time codeine Allergy Hallucinati Verified 08/24/20 00:10 ons ketorolac [From Toradol] Allergy Headache Verified 08/24/20 00:10 procaine [From Novocain] Allergy Airway Verified 08/24/20 00:10 Tightness sumatriptan [From Imitrex] Allergy Vomiting Verified 08/24/20 00:10 Home Meds: Home Meds Indomethacin 50 mg PO BID 08/24/20 [History] Past Medical History - Past Health History Medical/Surgical History: Denies Medical/Surgical History HEENT History: Reports: None Cardiovascular History: Reports: None Respiratory History: Reports: None Gastrointestinal History: Reports: Cholelithiasis, GERD Other Gastrointestinal History: positive gallstones Genitourinary History: Reports: None 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: , 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 Musculoskeletal History: Reports: None Neurological History: Reports: Migraines Psychiatric History: Reports: Depression Endocrine/Metabolic History: Reports: Other (See Below) Other Endocrine/Metabolic History: impaired glucose tolerance test Hematologic History: Reports: Anemia Immunologic History: Reports: None Oncologic (Cancer) History: Reports: None Dermatologic History: Reports: None - Infectious Disease History Infectious Disease History: Reports: Chicken Pox - Past Surgical History Head Surgeries/Procedures: Reports: None HEENT Surgical History: Reports: Oral Surgery GI Surgical History: Reports: Cholecystectomy Female Surgical History: Reports: Section, Hysterectomy, Tubal Ligation Musculoskeletal Surgical History: Reports: Carpal Tunnel, Other (See Below) Other Musculoskeletal Surgeries/Procedures:: surgery to right hand Social & Family History - Family History Family Medical History: No Pertinent Family History Cardiac: Reports: Hypertension Neurological: Reports: Migraines Endocrine/Metabolic: Reports: Diabetes, type II - Tobacco Use Tobacco Use Status *Q: Light Tobacco User Years of Tobacco use: 10 Packs/Tins Daily: 0.3 - Caffeine Use Caffeine Use: Reports: Soda Other Caffeine Use: 5/day - Living Situation & Occupation Living situation: Reports: with Significant Other, with Family Occupation: Unemployed ED ROS GENERAL - Review of Systems Review Of Systems: Comprehensive ROS is negative, except as noted in HPI. - Physical Exam Exam: See Below Exam Limited By: No Limitations General Appearance: Alert, WD/WN, No Apparent Distress Eye Exam: Bilateral Eye: EOMI, Normal Inspection, PERRL, Other (Light sensitivity) Ears: Normal External Exam, Normal Canal, Hearing Grossly Normal, Normal TMs Nose: Normal Inspection, Normal Mucosa, No Blood Throat/Mouth: Normal Inspection, Normal Lips, Normal Teeth, Normal Gums, Normal Oropharynx, Normal Voice, No Airway Compromise Head Exam: Atraumatic, Normocephalic Neck: Normal Inspection, Supple, Non-Tender, Full Range of Motion Respiratory/Chest: No Respiratory Distress, Lungs Clear, Normal Breath Sounds, No Accessory Muscle Use, Chest Non-Tender Cardiovascular: Normal Peripheral Pulses, Regular Rate, Rhythm, No Edema, No Gallop, No JVD, No Murmur, No Rub GI/Abdominal: Normal Bowel Sounds, Soft, Non-Tender, No Organomegaly, No Distention, No Abnormal Bruit, No Mass (Female) Exam: Deferred Rectal (Female) Exam: Deferred Neuro Exam (Abbreviated): Alert, Oriented, CN II-XII Intact, Normal Cognition, Normal Gait, Normal Reflexes, No Motor/Sensory Deficits Back Exam: Normal Inspection, Full Range of Motion, NT Extremities: Normal Inspection, Normal Range of Motion, Non-Tender, No Pedal Edema, Normal Capillary Refill Psychiatric: Normal Affect, Normal Mood Skin Exam: Warm, Dry, Intact, Normal Color, No Rash Course - Vital Signs Last Recorded V/S: Last Vital Signs Temp 97.9 F 10/01/20 23:20 Pulse 83 10/01/20 23:20 Resp 18 10/01/20 23:20 BP 130/90 10/01/20 23:20 Pulse Ox 100 10/01/20 23:20 - Orders/Labs/Meds Meds: Medications Discontinued Medications Generic Name Dose Route Start Last Admin Trade Name Yang PRN Reason Stop Dose Admin Butorphanol Tartrate 2 mg 10/01/20 23:36 10/01/20 23:59 Butorphanol 2 Mg/Ml Sdv IVPUSH 10/01/20 23:37 2 mg ONETIME ONE Administration Sodium Chloride 1,000 mls @ 999 mls/hr 10/01/20 23:36 10/01/20 23:59 Normal Saline IV 10/02/20 00:36 999 mls/hr .BOLUS ONE Administration Metoclopramide HCl 10 mg 10/01/20 23:36 10/02/20 00:01 Metoclopramide 10 Mg/2 Ml Sdv IVPUSH 10/01/20 23:37 10 mg ONETIME ONE Administration Departure - Departure Time of Disposition: 01:05 Disposition: Home, Self-Care 01 Condition: Fair Clinical Impression: Migraine Qualifiers: Migraine type: unspecified Status migrainosus presence: without status migrainosus Intractability: intractable Qualified Code(s): G43.919 - Migraine, unspecified, intractable, without status migrainosus - Discharge Information *PRESCRIPTION DRUG MONITORING PROGRAM REVIEWED*: Not Applicable *COPY OF PRESCRIPTION DRUG MONITORING REPORT IN PATIENT YVON: Not Applicable Instructions: Migraine Headache, [id number] Forms: ED Department Discharge Care Plan Goals: The patient was advised of the examination results during the visit. The patient was given IV fluids, IV Stadol and IV Reglan while in the ED with symptom improvement. The patient was encouraged to continue to take her medications as directed. If the patient has any additional symptoms or concerns, the patient should either return to the emergency department or visit her primary care facility. Sepsis Event Note (ED) - Focused Exam Vital Signs: Vital Signs Temp Pulse Resp BP Pulse Ox 10/01/20 23:20 97.9 F 83 18 130/90 100
== END 2020-10-02 01:18 | disposition home or self-care (01) ==
LOC: DL.ED 23:11
DX: G43.919 Migraine, unspecified, intractable, without status migrainosus (principal); Z88.5 Allergy status to narcotic agent; Z88.4 Allergy status to anesthetic agent; Z88.6 Allergy status to analgesic agent; Z88.1 Allergy status to other antibiotic agents; Z72.0 Tobacco use
CPT/HCPCS: 96374; 96375; 99283; 99283-25; J0595; J2765; J7030

== ENCOUNTER 2020-11-07 20:08 | Emergency (ER) | payer MEDICAID ==
[2020-11-07] MEDS ORDERED: Sodium Chloride 0.9% 10 ML Syringe FLUSH PRN (21:08)
--- NOTE | 2020-11-07 21:12 | EDM.PDOC ---
ED HPI GENERAL MEDICAL PROBLEM - General Chief Complaint: Headache Stated Complaint: MIGRAINE Time Seen by Provider: 11/07/20 21:04 Source of Information: Reports: Patient - History of Present Illness INITIAL COMMENTS - FREE TEXT/NARRATIVE: Pt is here for a migraine that started about a week ago. She has chronic migraines and has been getting botox for them in the past. She is due for another round of injections in November. She noted this migraine will not go away. She has been using her Tylenol, ibuprofen and indomethacin without relief. She is unable to take toradol due to rebound headaches. She has light and sound sensitivity. Nothing seems to be helping this headache. She does have nausea nd has vomited 3 times today. No diarrhea or constipation. No known sick contacts. No cough or shortness of breath. Headache Pain Score (Numeric/FACES): 8 - Related Data Allergies Allergy/AdvReac Type Severity Reaction Status Date / Time codeine Allergy Hallucinati Verified 11/07/20 20:55 ons ketorolac [From Toradol] Allergy Headache Verified 11/07/20 20:55 procaine [From Novocain] Allergy Airway Verified 11/07/20 20:55 Tightness sumatriptan [From Imitrex] Allergy Vomiting Verified 11/07/20 20:55 Home Meds: Home Meds Indomethacin 50 mg PO BID 08/24/20 [History] Past Medical History - Past Health History Medical/Surgical History: Denies Medical/Surgical History HEENT History: Reports: None Cardiovascular History: Reports: None Respiratory History: Reports: None Gastrointestinal History: Reports: Cholelithiasis, GERD Other Gastrointestinal History: positive gallstones Genitourinary History: Reports: None 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: , 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 Musculoskeletal History: Reports: None Neurological History: Reports: Migraines Psychiatric History: Reports: Depression Endocrine/Metabolic History: Reports: Other (See Below) Other Endocrine/Metabolic History: impaired glucose tolerance test Hematologic History: Reports: Anemia Immunologic History: Reports: None Oncologic (Cancer) History: Reports: None Dermatologic History: Reports: None - Infectious Disease History Infectious Disease History: Reports: Chicken Pox - Past Surgical History Head Surgeries/Procedures: Reports: None HEENT Surgical History: Reports: Oral Surgery GI Surgical History: Reports: Cholecystectomy Female Surgical History: Reports: Section, Hysterectomy, Tubal Ligation Musculoskeletal Surgical History: Reports: Carpal Tunnel, Other (See Below) Other Musculoskeletal Surgeries/Procedures:: surgery to right hand Social & Family History - Family History Family Medical History: No Pertinent Family History Cardiac: Reports: Hypertension Neurological: Reports: Migraines Endocrine/Metabolic: Reports: Diabetes, type II - Tobacco Use Tobacco Use Status *Q: Current Some Day Tobacco User Years of Tobacco use: 10 Packs/Tins Daily: 0.3 Second Hand Smoke Exposure: Yes - Caffeine Use Caffeine Use: Reports: Soda Other Caffeine Use: 5/day - Recreational Drug Use Recreational Drug Use: No - Living Situation & Occupation Living situation: Reports: with Significant Other, with Family Occupation: Unemployed ED ROS GENERAL - Review of Systems Review Of Systems: Comprehensive ROS is negative, except as noted in HPI. ED EXAM, NEURO - Physical Exam Exam: See Below Exam Limited By: No Limitations General Appearance: Alert, WD/WN, No Apparent Distress Eye Exam: Bilateral Eye: Normal Inspection Ears: Normal External Exam, Normal Canal Throat/Mouth: Normal Voice, No Airway Compromise Head Exam: Atraumatic, Normocephalic Neck: Normal Inspection, Supple, Non-Tender Respiratory/Chest: No Respiratory Distress, Lungs Clear, Normal Breath Sounds, No Accessory Muscle Use Cardiovascular: Normal Peripheral Pulses, Regular Rate, Rhythm, No Murmur GI/Abdominal: Soft, Non-Tender, No Distention (Female) Exam: Deferred Rectal (Female) Exam: Deferred Neurological: Alert, Normal Mood/Affect, CN II-XII Intact, No Motor/Sensory Deficits, Oriented x 3 Back Exam: Normal Inspection, Full Range of Motion Extremities: Normal Inspection, Normal Range of Motion, Normal Capillary Refill Psychiatric: Normal Affect, Normal Mood Skin Exam: Warm, Dry, Intact, Normal Color, No Rash Course - Vital Signs Last Recorded V/S: Last Vital Signs Temp 97.6 F 11/07/20 20:50 Pulse 99 11/07/20 20:50 Resp 18 11/07/20 20:50 BP 123/99 H 11/07/20 20:50 Pulse Ox 99 11/07/20 20:50 - Orders/Labs/Meds Orders: Active Orders 24 hr Category Date Time Status Peripheral IV Care [RC] . DIRECTED Care 11/07/20 21:09 Ordered Sodium Chloride 0.9% [Saline Flush] Med 11/07/20 21:08 Ordered 10 ml FLUSH ASDIRECTED PRN Peripheral IV Insertion Adult [OM.PC] Stat Oth 11/07/20 21:08 Ordered Medication Orders Sodium Chloride (Sodium Chloride 0.9% 10 Ml Syringe) 10 ml FLUSH ASDIRECTED PRN PRN Reason: Keep Vein Open Meds: Medications Generic Name Dose Route Start Last Admin Trade Name Freq PRN Reason Stop Dose Admin Sodium Chloride 10 ml 11/07/20 21:08 Sodium Chloride 0.9% 10 Ml Syringe FLUSH ASDIRECTED PRN Keep Vein Open Discontinued Medications Generic Name Dose Route Start Last Admin Trade Name Freq PRN Reason Stop Dose Admin Butorphanol Tartrate 2 mg 11/07/20 21:08 11/07/20 21:21 Butorphanol 2 Mg/Ml Sdv IM 11/07/20 21:09 2 mg ONETIME ONE Administration Diphenhydramine HCl 50 mg 11/07/20 21:09 11/07/20 21:19 Diphenhydramine 50 Mg/Ml Sdv IVPUSH 11/07/20 21:10 50 mg ONETIME ONE Administration Sodium Chloride 1,000 mls @ 999 mls/hr 11/07/20 21:08 11/07/20 21:16 Normal Saline IV 11/07/20 22:08 999 mls/hr .BOLUS ONE Administration Prochlorperazine Maleate 5 mg 11/07/20 21:09 11/07/20 21:18 Prochlorperazine 5 Mg Tab PO 11/07/20 21:10 5 mg ONETIME ONE Administration - Re-Assessments/Exams Free Text/Narrative Re-Assessment/Exam: Pt reports she is feeling much better and is ready for discharge. 11/07/20 22:15 Departure - Departure Time of Disposition: 22:15 Disposition: Home, Self-Care 01 Condition: Good Clinical Impression: Migraine Qualifiers: Migraine type: unspecified Status migrainosus presence: without status migrainosus Intractability: intractable Qualified Code(s): G43.919 - Migraine, unspecified, intractable, without status migrainosus - Discharge Information *PRESCRIPTION DRUG MONITORING PROGRAM REVIEWED*: Not Applicable *COPY OF PRESCRIPTION DRUG MONITORING REPORT IN PATIENT YVON: Not Applicable Instructions: Migraine Headache, [id number] Forms: ED Department Discharge Additional Instructions: Keep upcoming appointments with your neurologist Follow up with your primary care provide rin 3-5 days Sepsis Event Note (ED) - Evaluation Sepsis Screening Result: No Definite Risk - Focused Exam Vital Signs: Vital Signs Temp Pulse Resp BP Pulse Ox 11/07/20 20:50 97.6 F 99 18 123/99 H 99 - My Orders Last 24 Hours: My Active Orders 11/07/20 21:08 Sodium Chloride 0.9% [Saline Flush] 10 ml FLUSH ASDIRECTED PRN Peripheral IV Insertion Adult [OM.PC] Stat 11/07/20 21:09 Peripheral IV Care [RC] . DIRECTED - Assessment/Plan Last 24 Hours: My Active Orders 11/07/20 21:08 Sodium Chloride 0.9% [Saline Flush] 10 ml FLUSH ASDIRECTED PRN Peripheral IV Insertion Adult [OM.PC] Stat 11/07/20 21:09 Peripheral IV Care [RC] . DIRECTED
[2020-11-07] MEDS: Sodium Chloride 0.9% 1,000 ML IV ONE (21:16)
[2020-11-07] MEDS: Prochlorperazine 5 MG Tab PO ONE (21:18)
[2020-11-07] MEDS: diphenhydrAMINE 50 MG/ML SDV IVPUSH ONE (21:19)
[2020-11-07] MEDS: Butorphanol 2 MG/ML SDV IM ONE (21:21)
[2020-11-07 22:55] VITALS: BP 122/77; PULSE 52
== END 2020-11-07 22:26 | disposition home or self-care (01) ==
LOC: DL.ED 20:08
DX: G43.919 Migraine, unspecified, intractable, without status migrainosus (principal); Z88.5 Allergy status to narcotic agent; Z88.6 Allergy status to analgesic agent; Z88.4 Allergy status to anesthetic agent; Z88.8 Allergy status to other drugs, medicaments and biological substances; Z72.0 Tobacco use
CPT/HCPCS: 96372; 96374; 99283; J0595; J1200; J7030; Q0164

== ENCOUNTER 2020-11-16 16:50 | Emergency (ER) | payer MEDICAID | END 2020-11-16 21:12 | disposition left against medical advice (07) | LOC: DL.ED 16:50 | DX: Z53.21 Procedure and treatment not carried out due to patient leaving prior to being seen by health care provider (principal) ==

== ENCOUNTER 2020-11-17 19:19 | Emergency (ER) | payer MEDICAID ==
--- NOTE | 2020-11-17 19:33 | EDM.PDOC ---
ED HPI GENERAL MEDICAL PROBLEM - General Stated Complaint: RIGHT LOWER BACK, RIGHT SIDE PAIN Time Seen by Provider: 11/17/20 19:35 Source of Information: Reports: Patient, RN, RN Notes Reviewed - History of Present Illness INITIAL COMMENTS - FREE TEXT/NARRATIVE: Enrique is a 29 y/o female who presents to the ED via personal vehicle with complaints of right lower back pain, right lower quadrant abdominal pain, and nausea. The patient reports her back pain began about one week ago and has waxed and waned in severity over that time. Yesterday she began to notice the pain wrapping around into her right lower quadrant as well as nausea, vomiting, and diarrhea. She has been taking alternating doses of ibuprofen and acetaminophen which offered mild alleviation of pain, her last dose was of ibuprofen 20 minutes prior to her arrival to this facility. She denies fever, shaking chills, dysuria, hematuria, incontinence of bowel/bladder, saddle paraesthesia, or radiation of back pain into her lower extremities. She denies falls or history of trauma to the back. She does attest to a history of left lower back pain with sciatica but she states this pain feels different. She is s/p hysterectomy. Her last meal was today at noon. Right Lower Abdomen Pain Score (Numeric/FACES): 9 - Related Data Allergies Allergy/AdvReac Type Severity Reaction Status Date / Time codeine Allergy Hallucinati Verified 11/07/20 20:55 ons ketorolac [From Toradol] Allergy Headache Verified 11/07/20 20:55 procaine [From Novocain] Allergy Airway Verified 11/07/20 20:55 Tightness sumatriptan [From Imitrex] Allergy Vomiting Verified 11/07/20 20:55 Home Meds: Home Meds Indomethacin 50 mg PO BID 08/24/20 [History] Past Medical History - Past Health History Medical/Surgical History: Denies Medical/Surgical History HEENT History: Reports: None Cardiovascular History: Reports: None Respiratory History: Reports: None Gastrointestinal History: Reports: Cholelithiasis, GERD Other Gastrointestinal History: positive gallstones Genitourinary History: Reports: None 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: , 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 Musculoskeletal History: Reports: None Neurological History: Reports: Migraines Psychiatric History: Reports: Depression Endocrine/Metabolic History: Reports: Other (See Below) Other Endocrine/Metabolic History: impaired glucose tolerance test Hematologic History: Reports: Anemia Immunologic History: Reports: None Oncologic (Cancer) History: Reports: None Dermatologic History: Reports: None - Infectious Disease History Infectious Disease History: Reports: Chicken Pox - Past Surgical History Head Surgeries/Procedures: Reports: None HEENT Surgical History: Reports: Oral Surgery GI Surgical History: Reports: Cholecystectomy Female Surgical History: Reports: Section, Hysterectomy, Tubal Ligation Musculoskeletal Surgical History: Reports: Carpal Tunnel, Other (See Below) Other Musculoskeletal Surgeries/Procedures:: surgery to right hand Social & Family History - Family History Family Medical History: No Pertinent Family History Cardiac: Reports: Hypertension Neurological: Reports: Migraines Endocrine/Metabolic: Reports: Diabetes, type II - Caffeine Use Caffeine Use: Reports: Soda Other Caffeine Use: 5/day - Living Situation & Occupation Living situation: Reports: with Significant Other, with Family Occupation: Unemployed ED ROS GENERAL - Review of Systems Review Of Systems: Comprehensive ROS is negative, except as noted in HPI. ED EXAM, GI/ABD - Physical Exam Exam: See Below Exam Limited By: No Limitations General Appearance: Alert, No Apparent Distress, Obese Eyes: Bilateral: Normal Appearance, EOMI Ears: Normal External Exam, Hearing Grossly Normal Nose: Normal Inspection, Normal Mucosa, No Blood Throat/Mouth: Normal Inspection, Normal Oropharynx, Normal Voice, No Airway Compromise Head: Atraumatic, Normocephalic Neck: Normal Inspection, Full Range of Motion Respiratory/Chest: No Respiratory Distress, Lungs Clear, Normal Breath Sounds, No Accessory Muscle Use, Chest Non-Tender Cardiovascular: Normal Peripheral Pulses, Regular Rate, Rhythm, No Edema, No Gallop, No JVD, No Murmur, No Rub GI/Abdominal Exam: Normal Bowel Sounds, Soft, No Distention, No Abnormal Bruit, No Mass, Pelvis Stable, Tender (To palpation of right upper and lower quadrants). No: Guarding, Rigid, Rebound (Female) Exam: Deferred Rectal (Female) Exam: Deferred Back Exam: Muscle Spasm. No: CVA Tenderness (L), CVA Tenderness (R), Paraspinal Tenderness, Vertebral Tenderness Extremities: Normal Inspection, Normal Range of Motion, Non-Tender, No Pedal Edema, Normal Capillary Refill Neurological: Alert, Oriented, CN II-XII Intact, Normal Cognition, Normal Gait, No Motor/Sensory Deficits Psychiatric: Normal Affect, Normal Mood Skin Exam: Warm, Dry, Intact, Normal Color, No Rash. No: Cyanosis, Jaundice, Mottled, Pallor Course - Vital Signs Last Recorded V/S: Last Vital Signs Temp 96.5 F L 11/17/20 19:33 Pulse 77 11/17/20 19:33 Resp 18 11/17/20 19:33 BP 138/102 H 11/17/20 19:33 Pulse Ox 99 11/17/20 19:33 - Orders/Labs/Meds Orders: Active Orders 24 hr Category Date Time Status CULTURE URINE [RM] Stat Lab 11/17/20 19:37 Received Labs: Laboratory Tests 11/17/20 11/17/20 11/17/20 Range/Units 19:37 19:42 19:42 WBC 14.8 H (5.0-10.0) 10^3/uL RBC 4.90 (4.2-5.4) 10^6/uL Hgb 15.2 (12.0-16.0) g/dL Hct 46.1 (37.0-47.0) % MCV 94.1 (80-100) fL MCH 31.0 (27.0-34.0) pg MCHC 33.0 (33.0-35.0) g/dL Plt Count 323 (150-450) 10^3/uL Neut % (Auto) 53.5 (42.2-75.2) % Lymph % (Auto) 37.5 (20.5-50.1) % Terrell % (Auto) 7.1 (2-8) % Eos % (Auto) 1.6 (1.0-3.0) % Baso % (Auto) 0.3 (0.0-1.0) % Sodium 140 (136-145) mmol/L Potassium 4.1 (3.5-5.1) mmol/L Chloride 104 (98-107) mmol/L Carbon Dioxide 26 (21-32) mmol/L Anion Gap 14.1 H (7-13) mEq/L BUN 6 L (7-18) mg/dL Creatinine 0.83 (0.55-1.02) mg/dL Est Cr Clr Drug Dosing 81.98 mL/min Estimated GFR (MDRD) > 60 BUN/Creatinine Ratio 7.2 (No establ ref range) Glucose 101 H (70-99) mg/dL Lactic Acid (0.4-2.0) mmol/L Calcium 8.5 (8.5-10.1) mg/dL Magnesium 2.0 (1.8-2.4) mg/dL Total Bilirubin 0.2 (0.2-1.0) mg/dL AST 15 (15-37) U/L ALT 34 (14-59) U/L Alkaline Phosphatase 111 (46-116) U/L Total Protein 7.3 (6.4-8.2) g/dL Albumin 3.6 (3.4-5.0) g/dL Globulin 3.7 Albumin/Globulin Ratio 1.0 Amylase 44 (25-115) U/L Lipase 172 (73-393) U/L Urine Color Yellow (YELLOW) Urine Appearance Cloudy (CLEAR) Urine pH 6.5 (5.0-9.0) Ur Specific [place] >= 1.030 (1.005-1.030) Urine Protein Negative (NEGATIVE) Urine Glucose (UA) Negative (NEGATIVE) Urine Ketones Negative (NEGATIVE) Urine Occult Blood Negative (NEGATIVE) Urine Nitrite Negative (NEGATIVE) Urine Bilirubin Negative (NEGATIVE) Urine Urobilinogen 0.2 (0.2-1.0) mg/dL Ur Leukocyte Esterase Trace H (NEGATIVE) Urine RBC 0-5 (0-5) /HPF Urine WBC 10-20 H (0-5/HPF) /HPF Ur Epithelial Cells Many H (NOT SEEN) /HPF Amorphous Sediment Few (NOT SEEN) /HPF Urine Bacteria Moderate H (0-FEW/HPF) /HPF Urine Mucus Moderate H (NOT SEEN) /LPF Ethyl Alcohol < 3 (0) mg/dL 11/17/20 Range/Units 19:42 WBC (5.0-10.0) 10^3/uL RBC (4.2-5.4) 10^6/uL Hgb (12.0-16.0) g/dL Hct (37.0-47.0) % MCV (80-100) fL MCH (27.0-34.0) pg MCHC (33.0-35.0) g/dL Plt Count (150-450) 10^3/uL Neut % (Auto) (42.2-75.2) % Lymph % (Auto) (20.5-50.1) % Terrell % (Auto) (2-8) % Eos % (Auto) (1.0-3.0) % Baso % (Auto) (0.0-1.0) % Sodium (136-145) mmol/L Potassium (3.5-5.1) mmol/L Chloride (98-107) mmol/L Carbon Dioxide (21-32) mmol/L Anion Gap (7-13) mEq/L BUN (7-18) mg/dL Creatinine (0.55-1.02) mg/dL Est Cr Clr Drug Dosing mL/min Estimated GFR (MDRD) BUN/Creatinine Ratio (No establ ref range) Glucose (70-99) mg/dL Lactic Acid 1.7 (0.4-2.0) mmol/L Calcium (8.5-10.1) mg/dL Magnesium (1.8-2.4) mg/dL Total Bilirubin (0.2-1.0) mg/dL AST (15-37) U/L ALT (14-59) U/L Alkaline Phosphatase (46-116) U/L Total Protein (6.4-8.2) g/dL Albumin (3.4-5.0) g/dL Globulin Albumin/Globulin Ratio Amylase (25-115) U/L Lipase (73-393) U/L Urine Color (YELLOW) Urine Appearance (CLEAR) Urine pH (5.0-9.0) Ur Specific [place] (1.005-1.030) Urine Protein (NEGATIVE) Urine Glucose (UA) (NEGATIVE) Urine Ketones (NEGATIVE) Urine Occult Blood (NEGATIVE) Urine Nitrite (NEGATIVE) Urine Bilirubin (NEGATIVE) Urine Urobilinogen (0.2-1.0) mg/dL Ur Leukocyte Esterase (NEGATIVE) Urine RBC (0-5) /HPF Urine WBC (0-5/HPF) /HPF Ur Epithelial Cells (NOT SEEN) /HPF Amorphous Sediment (NOT SEEN) /HPF Urine Bacteria (0-FEW/HPF) /HPF Urine Mucus (NOT SEEN) /LPF Ethyl Alcohol (0) mg/dL Meds: Medications Discontinued Medications Generic Name Dose Route Start Last Admin Trade Name Freq PRN Reason Stop Dose Admin Methylprednisolone Sodium Succinate 125 mg 11/17/20 20:19 11/17/20 20:32 Methylprednisolone Sodium Succinate 125 Mg/2 Ml Sdv IM 11/17/20 20:20 125 mg ONETIME ONE Administration Orphenadrine Citrate 60 mg 11/17/20 20:19 11/17/20 20:31 Orphenadrine 60 Mg/2 Ml Inj IM 11/17/20 20:20 60 mg ONETIME ONE Administration - Radiology Interpretation Free Text/Narrative:: [facility] [place] [facility] Final Radiology Report Call: [phone] assistance Online chat: [email or web address] Name: ENRIQUE SHAW Age: 29Years F Date: 11/17/2020 SSN: -- : [id number] Study: CR LUMBAR SPINE 2 OR 3V Requesting Physician: Socorro Bermudez Images: 2 Addl Studies: Provided Clinical History: Right low back pain Contrast: Contrast Medium: Contrast Amount: Contrast Method: CONFIDENTIALITY STATEMENT This report is intended only for use by the referring physician, and only in accordance with law. If you received this in error, call [phone]. Page 1 of 1 PROCEDURE INFORMATION: Exam: XR Lumbosacral Spine Exam date and time: 11/17/2020 8:43 PM Age: 29 years old Clinical indication: Low back pain; Additional info: Right low back pain TECHNIQUE: Imaging protocol: XR of the lumbosacral spine. Views: 2 or 3 views. COMPARISON: No relevant prior studies available. FINDINGS: Bones/joints: Normal. No acute fracture. Normal alignment. Soft tissues: Unremarkable. IMPRESSION: No acute findings. Thank you for allowing us to participate in the care of your patient. Dictated and Authenticated by: Logan Park MD 11/17/2020 9:28 PM Central Time ([place] & [place]) - Re-Assessments/Exams Free Text/Narrative Re-Assessment/Exam: 11/17/20 Solu-Medrol 125 IM and Norflex 60mg IM administered Patient verbalized mild improvement in pain following administration of medication. Findings of examination, imaging, and lab work reviewed with patient. Will treat muscle spasm with orphenadrine. Supportive cares for low back pain discussed. Patient instructed to follow up with her PCP regarding today's visit. Red flag signs and symptoms which would warrant reevaluation reviewed. Patient verbalized understanding and agreement with the plan of care. Departure - Departure Time of Disposition: 21:44 Disposition: Home, Self-Care 01 Condition: Good Clinical Impression: Muscle spasm Acute low back pain Qualifiers: Back pain laterality: right Sciatica presence: without sciatica Qualified Code(s): M54.5 - Low back pain - Discharge Information *PRESCRIPTION DRUG MONITORING PROGRAM REVIEWED*: Not Applicable *COPY OF PRESCRIPTION DRUG MONITORING REPORT IN PATIENT YVON: Not Applicable Instructions: Muscle Cramps and Spasms, Acute Back Pain, Adult Referrals: Anabell Condon MD [Primary Care Provider] - Forms: ED Department Discharge Additional Instructions: Rx: orphenadrine 1.) Continue with your previously scheduled appointment with your primary care provider. 2.) Continue alternating acetaminophen (Tylenol) and ibuprofen (Motrin/Advil), as pain persists. 3.) You may apply BioFreeze, or similar ointment/cream, to the affected area as pain persists. 4.) You may alternate warm and cold compresses to the affected area; 20 minutes every hour. Sepsis Event Note (ED) - Focused Exam Vital Signs: Vital Signs Temp Pulse Resp BP Pulse Ox 11/17/20 19:33 96.5 F L 77 18 138/102 H 99 - My Orders Last 24 Hours: My Active Orders 11/17/20 19:37 CULTURE URINE [RM] Stat - Assessment/Plan Last 24 Hours: My Active Orders 11/17/20 19:37 CULTURE URINE [RM] Stat
[2020-11-17 19:36] VITALS: BP 138/102; PULSE 77
[2020-11-17 20:08] LABS: ANION GAP 14.1 mEq/L (7-13); CHLORIDE,CL 104 mmol/L (98-107); SODIUM,NA 140 mmol/L (136-145)
[2020-11-17] MEDS ORDERED: Orphenadrine 60 MG/2 ML Inj IM ONE (20:19)
[2020-11-17] MEDS ORDERED: methylPREDNISolone Sodium Succinate 125 MG/2 ML SDV IM ONE (20:19)
--- NOTE | 2020-11-17 21:29 | CR ---
PROCEDURE INFORMATION: Exam: XR Lumbosacral Spine Exam date and time: 11/17/2020 8:43 PM Age: 29 years old Clinical indication: Low back pain; Additional info: Right low back pain TECHNIQUE: Imaging protocol: XR of the lumbosacral spine. Views: 2 or 3 views. COMPARISON: No relevant prior studies available. FINDINGS: Bones/joints: Normal. No acute fracture. Normal alignment. Soft tissues: Unremarkable. IMPRESSION: No acute findings.
== END 2020-11-17 21:52 | disposition home or self-care (01) ==
LOC: DL.ED 19:19
DX: M62.830 Muscle spasm of back (principal); Z88.5 Allergy status to narcotic agent; Z88.4 Allergy status to anesthetic agent; Z88.8 Allergy status to other drugs, medicaments and biological substances
CPT/HCPCS: 36415; 72100; 80053; 80307; 81001; 82150; 83605; 83690; 83735; 85025; 87086; 96372; 99284; J2360; J2930

== ENCOUNTER 2020-12-05 03:43 | Emergency (ER) | payer MEDICAID ==
[2020-12-05] MEDS ORDERED: Butorphanol 2 MG/ML SDV IM ONE (04:12)
[2020-12-05] MEDS ORDERED: Sodium Chloride 0.9% 1,000 ML IV ONE (04:12)
--- NOTE | 2020-12-05 04:12 | EDM.PDOC ---
ED HPI GENERAL MEDICAL PROBLEM - General Chief Complaint: Headache Stated Complaint: 97.8*, NAUSEA, VOMITING, EYES HURT Time Seen by Provider: 12/05/20 04:09 Source of Information: Reports: Patient - History of Present Illness INITIAL COMMENTS - FREE TEXT/NARRATIVE: Pt is here for a migraine for the last 6 days. She has been in contact with neurology and her PCP and has been following their instructions, but her pain has not been going away. She has increased her indomethacin without relief. She is due to see neurology again on the . She has photophobia, phonophobia, headaches, nausea. No vomiting. She denies any weakness or numbness. This is exactly like her migraines in the past. Onset: Gradual Duration: Day(s): (6), Getting Worse Headache Pain Score (Numeric/FACES): 10 - Related Data Allergies Allergy/AdvReac Type Severity Reaction Status Date / Time codeine Allergy Hallucinati Verified 11/07/20 20:55 ons ketorolac [From Toradol] Allergy Headache Verified 11/07/20 20:55 procaine [From Novocain] Allergy Airway Verified 11/07/20 20:55 Tightness sumatriptan [From Imitrex] Allergy Vomiting Verified 11/07/20 20:55 Home Meds: Home Meds Indomethacin 50 mg PO BID 08/24/20 [History] Past Medical History - Past Health History Medical/Surgical History: Denies Medical/Surgical History HEENT History: Reports: None Cardiovascular History: Reports: None Respiratory History: Reports: None Gastrointestinal History: Reports: Cholelithiasis, GERD Other Gastrointestinal History: positive gallstones Genitourinary History: Reports: None EP[employer]AT[employer] 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 History: Reports: , Spontaneous Musculoskeletal History: Reports: None Neurological History: Reports: Migraines Psychiatric History: Reports: Depression Endocrine/Metabolic History: Reports: Other (See Below) Other Endocrine/Metabolic History: impaired glucose tolerance test Hematologic History: Reports: Anemia Immunologic History: Reports: None Oncologic (Cancer) History: Reports: None Dermatologic History: Reports: None - Infectious Disease History Infectious Disease History: Reports: Chicken Pox - Past Surgical History Head Surgeries/Procedures: Reports: None HEENT Surgical History: Reports: Oral Surgery GI Surgical History: Reports: Cholecystectomy Female Surgical History: Reports: Section, Hysterectomy, Tubal Ligation Musculoskeletal Surgical History: Reports: Carpal Tunnel, Other (See Below) Other Musculoskeletal Surgeries/Procedures:: surgery to right hand Social & Family History - Family History Family Medical History: No Pertinent Family History Cardiac: Reports: Hypertension Neurological: Reports: Migraines Endocrine/Metabolic: Reports: Diabetes, type II - Caffeine Use Caffeine Use: Reports: Soda Other Caffeine Use: 5/day - Living Situation & Occupation Living situation: Reports: with Significant Other, with Family Occupation: Unemployed ED ROS GENERAL - Review of Systems Review Of Systems: Comprehensive ROS is negative, except as noted in HPI. ED EXAM, NEURO - Physical Exam Exam: See Below Exam Limited By: No Limitations General Appearance: Alert, No Apparent Distress Eye Exam: Bilateral Eye: Normal Inspection Ears: Normal External Exam Throat/Mouth: Normal Inspection, Normal Voice, No Airway Compromise Head Exam: Atraumatic, Normocephalic Neck: Normal Inspection, Supple, Non-Tender Respiratory/Chest: No Respiratory Distress, Lungs Clear, Normal Breath Sounds, No Accessory Muscle Use. No: Crackles, Rales, Wheezing Cardiovascular: Normal Peripheral Pulses, Regular Rate, Rhythm, No Murmur GI/Abdominal: Soft, No Distention (Female) Exam: Deferred Rectal (Female) Exam: Deferred Neurological: Alert, Normal Mood/Affect, CN II-XII Intact, Normal Reflexes, No Motor/Sensory Deficits, Oriented x 3 Back Exam: Normal Inspection, Full Range of Motion Extremities: Normal Inspection, Normal Range of Motion, No Pedal Edema Psychiatric: Normal Affect, Normal Mood Skin Exam: Warm, Dry, Intact, Normal Color, No Rash Course - Vital Signs Last Recorded V/S: Last Vital Signs Temp 98.0 F 12/05/20 04:10 Pulse 87 12/05/20 04:10 Resp 16 12/05/20 04:10 BP 123/95 H 12/05/20 04:10 Pulse Ox 97 12/05/20 04:10 - Orders/Labs/Meds Orders: Active Orders 24 hr Category Date Time Status Peripheral IV Care [RC] . DIRECTED Care 12/05/20 04:17 Active Sodium Chloride 0.9% [Saline Flush] Med 12/05/20 04:16 Active 10 ml FLUSH ASDIRECTED PRN Peripheral IV Insertion Adult [OM.PC] Stat Oth 12/05/20 04:17 Ordered Medication Orders Sodium Chloride (Sodium Chloride 0.9% 10 Ml Syringe) 10 ml FLUSH ASDIRECTED PRN PRN Reason: Keep Vein Open Last Admin: 12/05/20 04:30 Dose: 10 ml Documented by: DIVINE Meds: Medications Generic Name Dose Route Start Last Admin Trade Name Yang PRN Reason Stop Dose Admin Sodium Chloride 10 ml 12/05/20 04:16 12/05/20 04:30 Sodium Chloride 0.9% 10 Ml Syringe FLUSH 10 ml ASDIRECTED PRN Administration Keep Vein Open Discontinued Medications Generic Name Dose Route Start Last Admin Trade Name Yang PRN Reason Stop Dose Admin Butorphanol Tartrate 2 mg 12/05/20 04:12 12/05/20 04:29 Butorphanol 2 Mg/Ml Sdv IM 12/05/20 04:13 2 mg ONETIME ONE Administration Diphenhydramine HCl 50 mg 12/05/20 04:13 12/05/20 04:30 Diphenhydramine 50 Mg/Ml Sdv IVPUSH 12/05/20 04:14 50 mg ONETIME ONE Administration Sodium Chloride 1,000 mls @ 999 mls/hr 12/05/20 04:12 12/05/20 04:30 Normal Saline IV 12/05/20 05:12 999 mls/hr .BOLUS ONE Administration Prochlorperazine Maleate 5 mg 12/05/20 04:13 12/05/20 04:30 Prochlorperazine 5 Mg Tab PO 12/05/20 04:14 5 mg ONETIME ONE Administration - Re-Assessments/Exams Free Text/Narrative Re-Assessment/Exam: Pt reports she is feeling much better after the treatment and some rest. She is hoping the pain will stay away now until she can see neurology. Pt reports she is ready for discharge. 12/05/20 05:52 Departure - Departure Time of Disposition: 05:53 Disposition: Home, Self-Care 01 Condition: Good Clinical Impression: Migraine Qualifiers: Migraine type: unspecified Status migrainosus presence: without status migrainosus Intractability: intractable Qualified Code(s): G43.919 - Migraine, unspecified, intractable, without status migrainosus - Discharge Information *PRESCRIPTION DRUG MONITORING PROGRAM REVIEWED*: No *COPY OF PRESCRIPTION DRUG MONITORING REPORT IN PATIENT YVON: No Instructions: Migraine Headache, [id number] Forms: ED Department Discharge Additional Instructions: Keep your upcoming appointment with neurology as scheduled Continue taking your medications as prescribed Call/return to the ER if your headache returns Follow up with your primary care provider in 3-5 days Sepsis Event Note (ED) - Focused Exam Vital Signs: Vital Signs Temp Pulse Resp BP Pulse Ox 12/05/20 04:10 98.0 F 87 16 123/95 H 97 - My Orders Last 24 Hours: My Active Orders 12/05/20 04:16 Sodium Chloride 0.9% [Saline Flush] 10 ml FLUSH ASDIRECTED PRN 12/05/20 04:17 Peripheral IV Care [RC] . DIRECTED Peripheral IV Insertion Adult [OM.PC] Stat - Assessment/Plan Last 24 Hours: My Active Orders 12/05/20 04:16 Sodium Chloride 0.9% [Saline Flush] 10 ml FLUSH ASDIRECTED PRN 12/05/20 04:17 Peripheral IV Care [RC] . DIRECTED Peripheral IV Insertion Adult [OM.PC] Stat
[2020-12-05] MEDS ORDERED: diphenhydrAMINE 50 MG/ML SDV IVPUSH ONE (04:13)
[2020-12-05] MEDS ORDERED: Prochlorperazine 5 MG Tab PO ONE (04:13)
[2020-12-05 04:14] VITALS: BP 123/95; PULSE 87
[2020-12-05] MEDS ORDERED: Sodium Chloride 0.9% 10 ML Syringe FLUSH PRN (04:16)
== END 2020-12-05 06:03 | disposition home or self-care (01) ==
LOC: DL.ED 03:43
DX: G43.919 Migraine, unspecified, intractable, without status migrainosus (principal); Z88.5 Allergy status to narcotic agent; Z88.6 Allergy status to analgesic agent
CPT/HCPCS: 96372; 96374; 99283; J0595; J1200; J7030; Q0164

== ENCOUNTER 2020-12-24 22:04 | Emergency (ER) | payer MEDICAID ==
[2020-12-24 22:35] VITALS: BP 114/88; PULSE 102
[2020-12-24] MEDS ORDERED: Sodium Chloride 0.9% 1,000 ML IV ONE (22:49)
[2020-12-24] MEDS ORDERED: Butorphanol 2 MG/ML SDV IVPUSH ONE (22:49)
[2020-12-24] MEDS ORDERED: Metoclopramide 10 MG/2 ML SDV IVPUSH ONE (22:49)
[2020-12-24] MEDS ORDERED: cefTRIAXone 1 GM in Sodium Chloride 0.9% 50 ML IV ONE (23:01)
--- NOTE | 2020-12-24 23:37 | EDM.PDOC ---
ED HPI GENERAL MEDICAL PROBLEM - General Chief Complaint: Headache Stated Complaint: 97.6*, MIGRAINE 6 DAYS, STREP THROAT MAYBE, PER PT Time Seen by Provider: 12/24/20 22:35 Source of Information: Reports: Patient History Limitations: Reports: No Limitations - History of Present Illness INITIAL COMMENTS - FREE TEXT/NARRATIVE: ED with c/o migraine headache for one week, and sore throat past 2 days. Nausea no vomiting. Fever today, Ear full on Right. - Related Data Allergies Allergy/AdvReac Type Severity Reaction Status Date / Time codeine Allergy Hallucinati Verified 12/25/20 00:17 ons ketorolac [From Toradol] Allergy Headache Verified 12/25/20 00:17 procaine [From Novocain] Allergy Airway Verified 12/25/20 00:17 Tightness sumatriptan [From Imitrex] Allergy Vomiting Verified 12/25/20 00:17 Home Meds: Home Meds Indomethacin 50 mg PO BID 08/24/20 [History] Past Medical History - Past Health History Medical/Surgical History: Denies Medical/Surgical History HEENT History: Reports: None Cardiovascular History: Reports: None Respiratory History: Reports: None Gastrointestinal History: Reports: Cholelithiasis, GERD Other Gastrointestinal History: positive gallstones Genitourinary History: Reports: None 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 History: 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: , Spontaneous Musculoskeletal History: Reports: None Neurological History: Reports: Migraines Psychiatric History: Reports: Depression Endocrine/Metabolic History: Reports: Other (See Below) Other Endocrine/Metabolic History: impaired glucose tolerance test Hematologic History: Reports: Anemia Immunologic History: Reports: None Oncologic (Cancer) History: Reports: None Dermatologic History: Reports: None - Infectious Disease History Infectious Disease History: Reports: Chicken Pox - Past Surgical History Head Surgeries/Procedures: Reports: None HEENT Surgical History: Reports: Oral Surgery GI Surgical History: Reports: Cholecystectomy Female Surgical History: Reports: Section, Hysterectomy, Tubal Ligation Musculoskeletal Surgical History: Reports: Carpal Tunnel, Other (See Below) Other Musculoskeletal Surgeries/Procedures:: surgery to right hand Social & Family History - Family History Family Medical History: No Pertinent Family History Cardiac: Reports: Hypertension Neurological: Reports: Migraines Endocrine/Metabolic: Reports: Diabetes, type II - Tobacco Use Tobacco Use Status *Q: Former Tobacco User Used Tobacco, but Quit: Yes Month/Year Tobacco Last Used: 6 Second Hand Smoke Exposure: Yes - Caffeine Use Caffeine Use: Reports: Soda Other Caffeine Use: 5/day - Living Situation & Occupation Living situation: Reports: with Significant Other, with Family Occupation: Unemployed ED ROS GENERAL - Review of Systems Review Of Systems: Comprehensive ROS is negative, except as noted in HPI. - Physical Exam Exam: See Below Exam Limited By: No Limitations General Appearance: Alert, Mild Distress (photosensitive) Eye Exam: Bilateral Eye: EOMI, Normal Fundi, PERRL Ears: Normal External Exam. No: Normal TMs (Fluid right) Nose: Normal Inspection Throat/Mouth: Normal Voice, Inflammation (posterior pharnyx, no exudate) Head Exam: Atraumatic, Normocephalic Neck: Normal Inspection Respiratory/Chest: No Respiratory Distress, Lungs Clear, Normal Breath Sounds Cardiovascular: Regular Rate, Rhythm GI/Abdominal: Normal Bowel Sounds Neuro Exam (Abbreviated): Alert, Oriented, Normal Cognition, Normal Gait Extremities: Normal Inspection Psychiatric: Normal Affect Skin Exam: Warm, Dry, No Rash Course - Vital Signs Last Recorded V/S: Last Vital Signs Temp 98.3 F 12/24/20 22:32 Pulse 102 H 12/24/20 22:32 Resp 20 12/24/20 22:32 BP 114/88 12/24/20 22:32 Pulse Ox 99 12/24/20 22:32 - Orders/Labs/Meds Meds: Medications Discontinued Medications Generic Name Dose Route Start Last Admin Trade Name Donellq PRN Reason Stop Dose Admin Butorphanol Tartrate 2 mg 12/24/20 22:49 12/24/20 23:05 Butorphanol 2 Mg/Ml Sdv IVPUSH 12/24/20 22:50 2 mg ONETIME ONE Administration Sodium Chloride 1,000 mls @ 999 mls/hr 12/24/20 22:49 12/24/20 23:06 Normal Saline IV 12/24/20 23:49 999 mls/hr .BOLUS ONE Administration Ceftriaxone Sodium 1 gm/ 50 mls @ 100 mls/hr 12/24/20 23:01 12/24/20 23:19 Sodium Chloride IV 12/24/20 23:30 100 mls/hr ONETIME ONE Administration Metoclopramide HCl 10 mg 12/24/20 22:49 12/24/20 23:05 Metoclopramide 10 Mg/2 Ml Sdv IVPUSH 12/24/20 22:50 10 mg ONETIME ONE Administration Departure - Departure Time of Disposition: 23:35 Disposition: Home, Self-Care 01 Condition: Good Clinical Impression: Migraine, Strep throat - Discharge Information *PRESCRIPTION DRUG MONITORING PROGRAM REVIEWED*: No *COPY OF PRESCRIPTION DRUG MONITORING REPORT IN PATIENT YVON: No Instructions: Migraine Headache, [id number], Pharyngitis, [id number] Referrals: PCP,None [Primary Care Provider] - Forms: ED Department Discharge Additional Instructions: increase fluids rest amoxicillin 500mg one three times daily x 7 days follow up with primary care next week Sepsis Event Note (ED) - Evaluation Sepsis Screening Result: No Definite Risk
== END 2020-12-25 00:15 | disposition home or self-care (01) ==
LOC: DL.ED 22:04
DX: G43.909 Migraine, unspecified, not intractable, without status migrainosus (principal); J02.0 Streptococcal pharyngitis; K21.9 Gastro-esophageal reflux disease without esophagitis; Z87.891 Personal history of nicotine dependence; Z88.5 Allergy status to narcotic agent; Z88.6 Allergy status to analgesic agent; Z88.8 Allergy status to other drugs, medicaments and biological substances; Z77.22 Contact with and (suspected) exposure to environmental tobacco smoke (acute) (chronic)
CPT/HCPCS: 87430; 96365; 96375; 99283; J0595; J0696; J2765; J7030

== ENCOUNTER 2020-12-25 15:54 | Emergency (ER) | payer MEDICAID ==
[2020-12-25] MEDS ORDERED: Penicillin G Benzathine/Procaine 600-600 1.2 Millunits/2 ML Syringe IM ONE (16:17)
--- NOTE | 2020-12-25 16:27 | EDM.PDOC ---
<Kalani Mohr - Last Filed: 12/25/20 16:39> ED HPI GENERAL MEDICAL PROBLEM - General Stated Complaint: SPITTING BLOOD, RIGHT SIDE OF NECK SWELLING TONSUL Time Seen by Provider: 12/25/20 16:15 Source of Information: Reports: Patient, Old Records, RN Notes Reviewed - History of Present Illness INITIAL COMMENTS - FREE TEXT/NARRATIVE: 29F diagnosed with Group A Strep pharyngitis yesterday presents with increasing throat pain. She has filled her antibiotic prescription but is unable to swallow her medications. She has limited oral intake, but is able to drink water. Denies vomiting or chest pain. She has increasing lymphadenitis size. Onset: Gradual Onset Date: 12/24/20 (Reviewed ED notes - GAS screen positive ) Duration: Day(s): (2), Getting Worse Location: Reports: Neck Treatments GYNAECOLOGICAL ONCOLOGIST: Reports: Acetaminophen - Related Data Allergies Allergy/AdvReac Type Severity Reaction Status Date / Time codeine Allergy Hallucinati Verified 12/25/20 00:17 ons ketorolac [From Toradol] Allergy Headache Verified 12/25/20 00:17 procaine [From Novocain] Allergy Airway Verified 12/25/20 00:17 Tightness sumatriptan [From Imitrex] Allergy Vomiting Verified 12/25/20 00:17 Home Meds: Home Meds Indomethacin 50 mg PO BID 08/24/20 [History] Past Medical History - Past Health History Medical/Surgical History: Denies Medical/Surgical History HEENT History: Reports: None Cardiovascular History: Reports: None Respiratory History: Reports: None Gastrointestinal History: Reports: Cholelithiasis, GERD Other Gastrointestinal History: positive gallstones Genitourinary History: Reports: None [employer]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: , 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 Musculoskeletal History: Reports: None Neurological History: Reports: Migraines Psychiatric History: Reports: Depression Endocrine/Metabolic History: Reports: Other (See Below) Other Endocrine/Metabolic History: impaired glucose tolerance test Hematologic History: Reports: Anemia Immunologic History: Reports: None Oncologic (Cancer) History: Reports: None Dermatologic History: Reports: None - Infectious Disease History Infectious Disease History: Reports: Chicken Pox - Past Surgical History Head Surgeries/Procedures: Reports: None HEENT Surgical History: Reports: Oral Surgery GI Surgical History: Reports: Cholecystectomy Female Surgical History: Reports: Section, Hysterectomy, Tubal Ligation Musculoskeletal Surgical History: Reports: Carpal Tunnel, Other (See Below) Other Musculoskeletal Surgeries/Procedures:: surgery to right hand Social & Family History - Family History Family Medical History: No Pertinent Family History Cardiac: Reports: Hypertension Neurological: Reports: Migraines Endocrine/Metabolic: Reports: Diabetes, type II - Caffeine Use Caffeine Use: Reports: Soda Other Caffeine Use: 5/day - Living Situation & Occupation Living situation: Reports: with Significant Other, with Family Occupation: Unemployed ED ROS ENT - Review of Systems Review Of Systems: See Below Constitutional: Reports: Decreased Appetite. Denies: Fever, Chills HEENT: Reports: Throat Pain, Throat Swelling (Tonsils ) Respiratory: Denies: Cough Cardiovascular: Denies: Chest Pain, Palpitations GI/Abdominal: Denies: Abdominal Pain, Vomiting Musculoskeletal: Reports: Joint Swelling. Denies: Joint Pain, Muscle Pain ED EXAM, ENT - Physical Exam Exam: See Below Exam Limited By: No Limitations General Appearance: Alert, WD/WN, Mild Distress Eye Exam: Left Eye: EOMI, PERRL Ears: Normal External Exam, Hearing Grossly Normal Nose: Normal Inspection Mouth/Throat: Normal Gums, Normal Lips, Tonsillar Erythema (No pharyngeal bleeding noted. ), Tonsillar Exudates, Tonsillar Swelling (+3 swelling ). No: Drooling, Dry Mucous Membrane, Oral Ulcers Neck: Lymphadenopathy (L), Lymphadenopathy (R), Tender Lateral Respiratory/Chest: No Respiratory Distress, Lungs Clear, Normal Breath Sounds, No Accessory Muscle Use Cardiovascular: Normal Peripheral Pulses, Regular Rate, Rhythm, No Murmur, No Rub Neurological: Normal Gait Psychiatric: Normal Affect, Normal Mood Skin: Warm, Dry Departure - Departure Time of Disposition: 17:00 Disposition: Home, Self-Care 01 Clinical Impression: Group A streptococcal infection, Strep throat Clinical Impression: (Ruled Out): Group B streptococcal infection - Discharge Information *PRESCRIPTION DRUG MONITORING PROGRAM REVIEWED*: Not Applicable *COPY OF PRESCRIPTION DRUG MONITORING REPORT IN PATIENT YVON: Not Applicable Instructions: Strep Throat, Adult, [id number] Forms: ED Department Discharge Additional Instructions: Drink warm beverages, eat popsicles until able to tolerate food. Do not take your antibiotic pills, the shot is a one and done treatment. Return to the ER if fever > 102 does not come down with Tylenol, unable to swallow your own spit/drooling, or difficulty breathing. - Problem List & Annotations (1) Strep throat SNOMED Code(s): 68577769 Code(s): J02.0 - STREPTOCOCCAL PHARYNGITIS Status: Acute - Problem List Review Problem List Initiated/Reviewed/Updated: Yes - Assessment/Plan Last 24 Hours: Diagnosed with Strep pharyngitis, has not started antibiotic treatment. Assessment:: Untreated Group A Streptococcal pharyngitis due to pain with swallowing. Plan: IM Penicillin G 1.2 million units, one time dose. Discharge home. Do not take previously prescribed antibiotics. Follow up with PCP if no improvement in 3-5 days. Patient questions answered, patient in agreement with the above plan. Kalani Mohr MD PGY3 12/25/2020 <Thad Muhammad - Last Filed: 12/25/20 16:42> Course - Vital Signs Last Recorded V/S: Last Vital Signs Temp 98.9 F 12/25/20 16:18 Pulse 83 12/25/20 16:18 Resp 18 12/25/20 16:18 BP 140/98 H 12/25/20 16:18 Pulse Ox 97 12/25/20 16:18 - Orders/Labs/Meds Meds: Medications Discontinued Medications Generic Name Dose Route Start Last Admin Trade Name Freq PRN Reason Stop Dose Admin Penicillin G Procaine/Benzathine 1.2 millunits 12/25/20 16:17 12/25/20 16:27 Penicillin G Benzathine/Procaine 600-600 1.2 Millunits/2 Ml Syringe IM 12/25/20 16:18 1.2 millunits ONETIME ONE Administration - Re-Assessments/Exams Free Text/Narrative Re-Assessment/Exam: 12/25/20 I saw and evaluated the patient. Discussed with resident and agree with residents findings and plan as documented in the residents note. Sepsis Event Note (ED) - Focused Exam Vital Signs: Vital Signs Temp Pulse Resp BP Pulse Ox 12/25/20 16:18 98.9 F 83 18 140/98 H 97
[2020-12-25 16:39] VITALS: BP 140/98; PULSE 83
== END 2020-12-25 16:40 | disposition home or self-care (01) ==
LOC: DL.ED 15:54
DX: J02.0 Streptococcal pharyngitis (principal); Z88.5 Allergy status to narcotic agent; Z88.6 Allergy status to analgesic agent; Z88.8 Allergy status to other drugs, medicaments and biological substances
CPT/HCPCS: 96372; 99283; J0558

== ENCOUNTER 2021-01-07 21:28 | Emergency (ER) | payer MEDICAID ==
[2021-01-07 21:42] VITALS: BP 118/85; PULSE 87
--- NOTE | 2021-01-07 22:05 | EDM.PDOC ---
ED HPI GENERAL MEDICAL PROBLEM - General Chief Complaint: Chest Pain Stated Complaint: CHEST AND LEFT ARM, FEELS LIKE THROWING UP Time Seen by Provider: 01/07/21 21:59 Source of Information: Reports: Patient History Limitations: Reports: No Limitations - History of Present Illness INITIAL COMMENTS - FREE TEXT/NARRATIVE: 30 y/o F c/o sob and cp since 4pm. Pt took tums thinking it was acid reflux, she tehn vomited adn felt worse. The CP is left chest and tight in [address] radiating to L shoulder. No similar symptoms in the past. Hx of migraines. Denies fever, cough, chills, drugs, etoh, abd pn, constipation, diff voiding, neck pn, jaw pn, diff swallowing, vision prob, mckee, recent trauma. - Related Data Allergies Allergy/AdvReac Type Severity Reaction Status Date / Time codeine Allergy Hallucinati Verified 01/07/21 21:37 ons ketorolac [From Toradol] Allergy Headache Verified 01/07/21 21:37 procaine [From Novocain] Allergy Airway Verified 01/07/21 21:37 Tightness sumatriptan [From Imitrex] Allergy Vomiting Verified 01/07/21 21:37 Home Meds: Home Meds Ferrous Sulfate [Iron] 325 mg PO BID 01/07/21 [History] Folic Acid 1 mg PO DAILY 01/07/21 [History] Past Medical History - Past Health History Medical/Surgical History: Denies Medical/Surgical History HEENT History: Reports: None Cardiovascular History: Reports: None Respiratory History: Reports: None Gastrointestinal History: Reports: Cholelithiasis, GERD Other Gastrointestinal History: positive gallstones Genitourinary History: Reports: None 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: , 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 Musculoskeletal History: Reports: None Neurological History: Reports: Migraines Psychiatric History: Reports: Depression Endocrine/Metabolic History: Reports: Other (See Below) Other Endocrine/Metabolic History: impaired glucose tolerance test Hematologic History: Reports: Anemia Immunologic History: Reports: None Oncologic (Cancer) History: Reports: None Dermatologic History: Reports: None - Infectious Disease History Infectious Disease History: Reports: Chicken Pox - Past Surgical History Head Surgeries/Procedures: Reports: None HEENT Surgical History: Reports: Oral Surgery GI Surgical History: Reports: Cholecystectomy Female Surgical History: Reports: Section, Hysterectomy, Tubal Ligation Musculoskeletal Surgical History: Reports: Carpal Tunnel, Other (See Below) Other Musculoskeletal Surgeries/Procedures:: surgery to right hand Social & Family History - Family History Family Medical History: No Pertinent Family History Cardiac: Reports: Hypertension Neurological: Reports: Migraines Endocrine/Metabolic: Reports: Diabetes, type II - Tobacco Use Tobacco Use Status *Q: Current Every Day Tobacco User Years of Tobacco use: 15 Packs/Tins Daily: 0.2 - Caffeine Use Caffeine Use: Reports: Coffee Other Caffeine Use: 5/day - Recreational Drug Use Recreational Drug Use: No - Living Situation & Occupation Living situation: Reports: with Significant Other, with Family Occupation: Unemployed ED ROS GENERAL - Review of Systems Review Of Systems: Comprehensive ROS is negative, except as noted in HPI. ED EXAM, GENERAL - Physical Exam Exam: See Below Exam Limited By: No Limitations General Appearance: Alert, No Apparent Distress Eye Exam: Bilateral Eye: PERRL Throat/Mouth: Normal Inspection, Normal Lips, Normal Teeth, Normal Gums, Normal Oropharynx, Normal Voice, No Airway Compromise Head: Atraumatic, Normocephalic Neck: Normal Inspection, Supple, Non-Tender, Full Range of Motion Respiratory/Chest: No Respiratory Distress, Lungs Clear, Normal Breath Sounds, No Accessory Muscle Use, Chest Non-Tender Cardiovascular: Normal Peripheral Pulses, Regular Rate, Rhythm, No Edema, No Gallop, No JVD, No Murmur, No Rub Peripheral Pulses: 2+: Radial (L), Radial (R) GI/Abdominal: Soft, Non-Tender (Female) Exam: Deferred Rectal (Female) Exam: Deferred Back Exam: Normal Inspection, Full Range of Motion Extremities: Normal Inspection, Normal Range of Motion, Non-Tender, Normal Capillary Refill, No Pedal Edema Neurological: Alert, Oriented Psychiatric: Normal Affect, Normal Mood Skin Exam: Warm, Dry, Intact #1 Interpretation EKG Date: 01/07/21 Time: 10:13 Rhythm: NSR Wallace: LAD-Left Wallace Deviation P-Wave: Present QRS: Normal ST-T: Normal QT: Normal Course - Vital Signs Last Recorded V/S: Last Vital Signs Temp 97.8 F 01/07/21 21:37 Pulse 87 01/07/21 21:37 Resp 20 01/07/21 21:37 BP 118/85 01/07/21 21:37 Pulse Ox 98 01/07/21 21:37 - Orders/Labs/Meds Orders: Active Orders 24 hr Category Date Time Status UA RFX [facility] AND CULT IF INDIC [URIN] Stat Lab 01/07/21 22:31 Ordered Labs: Laboratory Tests 01/07/21 01/07/21 Range/Units 22:10 22:10 WBC 16.3 H (5.0-10.0) 10^3/uL RBC 5.00 (4.2-5.4) 10^6/uL Hgb 15.5 (12.0-16.0) g/dL Hct 46.2 (37.0-47.0) % MCV 92.4 (80-100) fL MCH 31.0 (27.0-34.0) pg MCHC 33.5 (33.0-35.0) g/dL Plt Count 343 (150-450) 10^3/uL Neut % (Auto) 55.8 (42.2-75.2) % Lymph % (Auto) 37.0 (20.5-50.1) % [place] % (Auto) 5.9 (2-8) % Eos % (Auto) 1.1 (1.0-3.0) % Baso % (Auto) 0.2 (0.0-1.0) % Sodium 140 (136-145) mmol/L Potassium 4.0 (3.5-5.1) mmol/L Chloride 105 (98-107) mmol/L Carbon Dioxide 26 (21-32) mmol/L Anion Gap 13.0 (7-13) mEq/L BUN 8 (7-18) mg/dL Creatinine 0.87 (0.55-1.02) mg/dL Est Cr Clr Drug Dosing 77.50 mL/min Estimated GFR (MDRD) > 60 BUN/Creatinine Ratio 9.2 (No establ ref range) Glucose 94 (70-99) mg/dL Calcium 8.3 L (8.5-10.1) mg/dL Total Bilirubin 0.3 (0.2-1.0) mg/dL AST 11 L (15-37) U/L ALT 25 (14-59) U/L Alkaline Phosphatase 113 (46-116) U/L Troponin I High Sens 8 (<=51) pg/mL C-Reactive Protein < 0.2 (0.0-0.9) mg/dL Total Protein 7.2 (6.4-8.2) g/dL Albumin 3.7 (3.4-5.0) g/dL Globulin 3.5 Albumin/Globulin Ratio 1.1 Meds: Medications Discontinued Medications Generic Name Dose Route Start Last Admin Trade Name Yang PRN Reason Stop Dose Admin Al Hydroxide/Mg Hydroxide 30 ml 01/07/21 23:24 01/07/21 23:35 Gi Cocktail Oral Solution 30 Ml PO 01/07/21 23:25 30 ml ONETIME ONE Administration - Re-Assessments/Exams Free Text/Narrative Re-Assessment/Exam: 01/07/21 23:51 The pt has no change in condition after extensive work up. I have discussed her lab exam, xray and ekg and explained the negative findings and nonspecific chest pain. The pt is vitally stable awake adn alert in no apparent distress. She states she would like to go home. Departure - Departure Time of Disposition: 23:53 Disposition: Home, Self-Care 01 Condition: Good Clinical Impression: Nonspecific chest pain Instructions: Nonspecific Chest Pain, Adult, [id number] Forms: ED Department Discharge Additional Instructions: Use tylenol for your pain in your chest. If any new symptoms or concerns develop contact your primary care facility or return to the ER. Sepsis Event Note (ED) - Evaluation Sepsis Screening Result: No Definite Risk - Focused Exam Vital Signs: Vital Signs Temp Pulse Resp BP Pulse Ox 01/07/21 21:37 97.8 F 87 20 118/85 98 - My Orders Last 24 Hours: My Active Orders 01/07/21 22:31 UA RFX [facility] AND CULT IF INDIC [URIN] Stat - Assessment/Plan Last 24 Hours: My Active Orders 01/07/21 22:31 UA RFX [facility] AND CULT IF INDIC [URIN] Stat
--- NOTE | 2021-01-07 22:32 | CR ---
PROCEDURE INFORMATION: Exam: XR Chest Exam date and time: 01/07/2021 10:16 PM Age: 30 years old Clinical indication: Other: Chest pain; Additional info: Cp TECHNIQUE: Imaging protocol: XR of the chest. Views: 1 view. COMPARISON: No relevant prior studies available. FINDINGS: Lungs: Unremarkable. No consolidation. Pleural spaces: Unremarkable. No pleural effusion. No pneumothorax. Heart/Mediastinum: Unremarkable. No cardiomegaly. Bones/joints: Unremarkable. IMPRESSION: No acute findings.
[2021-01-07 22:43] LABS: CHLORIDE,CL 105 mmol/L (98-107); SODIUM,NA 140 mmol/L (136-145)
[2021-01-07] MEDS ORDERED: GI Cocktail Oral Solution 30 ML PO ONE (23:24)
== END 2021-01-08 00:06 | disposition home or self-care (01) ==
LOC: DL.ED 21:28
DX: R07.89 Other chest pain (principal); D64.9 Anemia, unspecified; Z72.0 Tobacco use; Z88.5 Allergy status to narcotic agent; Z88.4 Allergy status to anesthetic agent; Z88.8 Allergy status to other drugs, medicaments and biological substances
CPT/HCPCS: 36415; 71045; 80053; 84484; 85025; 86140; 93005; 99285-25; A9270-GY

== ENCOUNTER 2021-03-19 22:08 | Emergency (ER) | payer MEDICAID ==
[2021-03-19 23:20] LABS: CORONAVIRUS COVID-19 NAA NEGATIVE (NEGATIVE)
[2021-03-20 01:06] VITALS: BP 133/80; PULSE 66
[2021-03-20] MEDS ORDERED: Promethazine 25 MG/ML SDV IM ONE (01:06)
[2021-03-20] MEDS ORDERED: Butorphanol 2 MG/ML SDV IM ONE (01:06)
== END 2021-03-20 02:17 | disposition home or self-care (01) ==
LOC: DL.ED 22:08
DX: G43.909 Migraine, unspecified, not intractable, without status migrainosus (principal); Z88.5 Allergy status to narcotic agent; Z88.6 Allergy status to analgesic agent; Z88.8 Allergy status to other drugs, medicaments and biological substances; Z72.0 Tobacco use; Z20.822 Contact with and (suspected) exposure to COVID-19
CPT/HCPCS: 0240U; 96372; 99283; J0595; J2550

== ENCOUNTER 2021-04-28 21:23 | Emergency (ER) | payer MEDICAID ==
[2021-04-28 21:44] VITALS: PULSE 90
[2021-04-28] MEDS ORDERED: Acetaminophen 500 MG Tab PO ONE (21:48)
[2021-04-28 23:02] VITALS: BP 133/77
== END 2021-04-28 23:01 | disposition home or self-care (01) ==
LOC: DL.ED 21:23
DX: M25.561 Pain in right knee (principal); Z88.5 Allergy status to narcotic agent; Z88.6 Allergy status to analgesic agent; Z88.8 Allergy status to other drugs, medicaments and biological substances
CPT/HCPCS: 73562; 99283; A9270

== ENCOUNTER 2021-09-08 23:47 | Emergency (ER) | payer MEDICAID ==
[2021-09-09] MEDS ORDERED: Sodium Chloride 0.9% 10 ML Syringe FLUSH PRN (00:16)
[2021-09-09] MEDS ORDERED: Sodium Chloride 0.9% 1,000 ML IV ONE (00:16)
[2021-09-09] MEDS ORDERED: Metoclopramide 10 MG/2 ML SDV IVPUSH ONE (00:17)
[2021-09-09] MEDS ORDERED: diphenhydrAMINE 50 MG/ML SDV IVPUSH ONE (00:17)
[2021-09-09 01:23] VITALS: BP 107/61; PULSE 65
== END 2021-09-09 01:58 | disposition home or self-care (01) ==
LOC: DL.ED 23:47
DX: G43.909 Migraine, unspecified, not intractable, without status migrainosus (principal); K21.9 Gastro-esophageal reflux disease without esophagitis; F17.210 Nicotine dependence, cigarettes, uncomplicated; Z88.5 Allergy status to narcotic agent; Z88.6 Allergy status to analgesic agent; Z88.8 Allergy status to other drugs, medicaments and biological substances
CPT/HCPCS: 96361; 96374; 96375; 99283; J1200; J2765; J3490; J7030

== ENCOUNTER 2021-09-25 13:20 | Emergency (ER) | payer MEDICAID ==
[2021-09-25 13:38] VITALS: BP 138/106; PULSE 100
[2021-09-25] MEDS ORDERED: Butorphanol 2 MG/ML SDV IM ONE (13:38)
[2021-09-25] MEDS ORDERED: Promethazine 25 MG/ML SDV IM ONE (13:38)
== END 2021-09-25 14:21 | disposition home or self-care (01) ==
LOC: DL.ED 13:20
DX: R51.9 Headache, unspecified (principal); Z88.5 Allergy status to narcotic agent; Z88.6 Allergy status to analgesic agent; Z88.8 Allergy status to other drugs, medicaments and biological substances
CPT/HCPCS: 96372; 99283; J0595; J2550; 99282

== ENCOUNTER 2021-10-19 22:02 | Emergency (ER) | payer MEDICAID ==
[2021-10-19] MEDS ORDERED: Promethazine 25 MG/ML SDV IM ONE (22:35)
[2021-10-19] MEDS ORDERED: Butorphanol 2 MG/ML SDV IM ONE (22:35)
[2021-10-19 22:37] VITALS: BP 132/95; PULSE 99
== END 2021-10-19 23:48 | disposition home or self-care (01) ==
LOC: DL.ED 22:02
DX: G43.909 Migraine, unspecified, not intractable, without status migrainosus (principal); Z88.5 Allergy status to narcotic agent; Z88.6 Allergy status to analgesic agent; Z88.8 Allergy status to other drugs, medicaments and biological substances; Z86.16 Personal history of COVID-19
CPT/HCPCS: 96372; 99283; J0595; J2550; 99282

== ENCOUNTER 2021-12-06 22:28 | Emergency (ER) | payer MEDICAID ==
[2021-12-06 22:59] VITALS: BP 136/99; PULSE 83
[2021-12-06] MEDS ORDERED: Metoclopramide 10 MG/2 ML SDV IVPUSH ONE (23:17)
[2021-12-06] MEDS ORDERED: Famotidine 20 MG/2 ML SDV IVPUSH ONE (23:17)
[2021-12-06] MEDS ORDERED: Sodium Chloride 0.9% 1,000 ML IV ONE (23:17)
== END 2021-12-07 00:21 | disposition home or self-care (01) ==
LOC: DL.ED 22:28
DX: J01.40 Acute pansinusitis, unspecified (principal); Z88.5 Allergy status to narcotic agent; Z88.1 Allergy status to other antibiotic agents; Z88.8 Allergy status to other drugs, medicaments and biological substances; Z79.899 Other long term (current) drug therapy; Z90.49 Acquired absence of other specified parts of digestive tract; Z86.16 Personal history of COVID-19; Z90.710 Acquired absence of both cervix and uterus
CPT/HCPCS: 87081; 87430; 96361; 96374; 96375; 99282; 99284; J2765; J3490; J7030

== ENCOUNTER 2021-12-09 06:02 | Day surgery (SDC) | payer MEDICAID ==
[2021-12-09] MEDS ORDERED: fentaNYL 100 MCG/2 ML SDV IV ONE (06:03)
[2021-12-09] MEDS ORDERED: Midazolam 1 MG/ML 2 ML SDV IV ONE (06:03)
[2021-12-09] MEDS: Dextrose 5%-0.45% NaCl 1,000 ML IV SCH (06:22)
[2021-12-09] MEDS ORDERED: Midazolam 1 MG/ML 2 ML SDV ONE (06:29)
[2021-12-09] MEDS ORDERED: fentaNYL 100 MCG/2 ML SDV ONE (06:29)
[2021-12-09] MEDS: fentaNYL 100 MCG/2 ML SDV IV ONE ×2 (06:55→06:56)
[2021-12-09] MEDS: Midazolam 1 MG/ML 2 ML SDV IV ONE ×2 (06:56→06:57)
[2021-12-09 14:45] VITALS: BP 126/67; PULSE 53
== END 2021-12-09 09:10 | disposition home or self-care (01) ==
LOC: DL.ENDO 06:02
PROVIDERS: ATTEND Internal Medicine Gastroenterology
DX: K29.50 Unspecified chronic gastritis without bleeding (principal); K31.A0 Gastric intestinal metaplasia, unspecified; E66.09 Other obesity due to excess calories; F17.200 Nicotine dependence, unspecified, uncomplicated; Z98.890 Other specified postprocedural states; Z90.49 Acquired absence of other specified parts of digestive tract; Z88.5 Allergy status to narcotic agent; Z88.6 Allergy status to analgesic agent; Z88.8 Allergy status to other drugs, medicaments and biological substances; Z68.41 Body mass index [BMI] 40.0-44.9, adult
CPT/HCPCS: 43239; 87077; J2250; J3010; J7042

== ENCOUNTER 2022-01-10 14:15 | Emergency (ER) | payer MEDICAID ==
[2022-01-10] MEDS ORDERED: Sodium Chloride 0.9% 1,000 ML IV ONE (17:50)
[2022-01-10] MEDS ORDERED: Ondansetron 4 MG/2 ML SDV IVPUSH ONE (17:50)
[2022-01-10] MEDS ORDERED: Butorphanol 2 MG/ML SDV IVPUSH ONE (17:53)
== END 2022-01-10 17:55 | disposition left against medical advice (07) ==
LOC: DL.ED 14:15
DX: R51.9 Headache, unspecified (principal); F17.210 Nicotine dependence, cigarettes, uncomplicated; Z88.5 Allergy status to narcotic agent; Z88.1 Allergy status to other antibiotic agents; Z88.8 Allergy status to other drugs, medicaments and biological substances; Z79.899 Other long term (current) drug therapy; Z90.49 Acquired absence of other specified parts of digestive tract
CPT/HCPCS: 99283

== ENCOUNTER 2022-01-21 18:54 | Emergency (ER) | payer MEDICAID ==
[2022-01-21] MEDS ORDERED: Sodium Chloride 0.9% 10 ML Syringe FLUSH PRN (19:07)
[2022-01-21 19:18] VITALS: BP 115/70; PULSE 85
[2022-01-21 19:39] LABS: PTT,PARTIAL THROMBOPLSTIN TIME 26.1 SEC (22.0-34.0)
[2022-01-21 19:42] LABS: ANION GAP 10.9 mEq/L (7-13)
== END 2022-01-21 20:35 | disposition home or self-care (01) ==
LOC: DL.ED 18:54
DX: R07.89 Other chest pain (principal); E66.9 Obesity, unspecified; Z68.41 Body mass index [BMI] 40.0-44.9, adult; Z88.5 Allergy status to narcotic agent; Z88.1 Allergy status to other antibiotic agents; Z79.899 Other long term (current) drug therapy; Z90.49 Acquired absence of other specified parts of digestive tract; Z90.710 Acquired absence of both cervix and uterus
CPT/HCPCS: 36415; 80053; 83690; 84484; 85025; 85610; 85730; 93005; 99285

== ENCOUNTER 2022-05-16 21:20 | Emergency (ER) | payer MEDICAID ==
[2022-05-16] MEDS ORDERED: Lidocaine 1% 5 ML VIAL INJECT ONE (21:52)
[2022-05-16 21:55] VITALS: BP 145/82; PULSE 62
[2022-05-16] MEDS ORDERED: Lidocaine 2% 100 MG/5 ML Syringe IOSS ONE (21:56)
[2022-05-16] MEDS ORDERED: Lidocaine 2% 20 ML MDV ONE ×2 (22:12→22:17)
== END 2022-05-16 22:44 | disposition home or self-care (01) ==
LOC: DL.ED 21:20
DX: G43.909 Migraine, unspecified, not intractable, without status migrainosus (principal); E66.9 Obesity, unspecified; Z68.41 Body mass index [BMI] 40.0-44.9, adult; Z86.16 Personal history of COVID-19; Z88.5 Allergy status to narcotic agent; Z88.4 Allergy status to anesthetic agent; Z88.8 Allergy status to other drugs, medicaments and biological substances; Z79.899 Other long term (current) drug therapy; Z72.0 Tobacco use
CPT/HCPCS: 99282; 99283; J3490

== ENCOUNTER 2022-05-22 20:51 | Emergency (ER) | payer MEDICAID ==
[2022-05-22] MEDS ORDERED: Sodium Chloride 0.9% 1,000 ML IV ONE (21:30)
[2022-05-22] MEDS ORDERED: Sodium Chloride 0.9% 10 ML Syringe FLUSH PRN (21:30)
[2022-05-22 21:53] VITALS: BP 138/89; PULSE 75
[2022-05-22] MEDS ORDERED: Promethazine 25 MG/ML SDV IM ONE (22:30)
== END 2022-05-22 23:06 | disposition home or self-care (01) ==
LOC: DL.ED 20:51
DX: G44.209 Tension-type headache, unspecified, not intractable (principal); E66.9 Obesity, unspecified; Z68.41 Body mass index [BMI] 40.0-44.9, adult; Z86.16 Personal history of COVID-19; Z88.5 Allergy status to narcotic agent; Z88.8 Allergy status to other drugs, medicaments and biological substances; Z72.0 Tobacco use
CPT/HCPCS: 70450; 96361; 96372; 96374; 99283; 99283-25; J2550; J3360; J3490; J7030

== ENCOUNTER 2022-06-23 18:21 | Emergency (ER) | payer MEDICAID ==
[2022-06-23 19:15] VITALS: BP 136/94; PULSE 82
[2022-06-23 20:16] LABS: CORONAVIRUS COVID-19 NAA NEGATIVE (NEGATIVE); INFLUENZA A NAA NEGATIVE (NEGATIVE); INFLUENZA B NAA NEGATIVE (NEGATIVE); RESPIRATORY SYNCYTIAL VIR NAA NEGATIVE (NEGATIVE)
== END 2022-06-23 20:51 | disposition home or self-care (01) ==
LOC: DL.ED 18:21
DX: S61.512D Laceration without foreign body of left wrist, subsequent encounter (principal); F17.210 Nicotine dependence, cigarettes, uncomplicated; E66.9 Obesity, unspecified; Z68.41 Body mass index [BMI] 40.0-44.9, adult; Z86.16 Personal history of COVID-19; Z88.5 Allergy status to narcotic agent; Z88.4 Allergy status to anesthetic agent; Z88.8 Allergy status to other drugs, medicaments and biological substances; Z79.899 Other long term (current) drug therapy; Z48.02 Encounter for removal of sutures; Z20.822 Contact with and (suspected) exposure to COVID-19
CPT/HCPCS: 0241U; 87081; 87430; 99283; 99282

== ENCOUNTER 2022-08-15 23:14 | Emergency (ER) | payer MEDICAID ==
[2022-08-15 23:37] VITALS: BP 155/96; PULSE 86
[2022-08-15] MEDS ORDERED: Butorphanol 2 MG/ML SDV IM ONE (23:39)
[2022-08-15] MEDS ORDERED: Promethazine 25 MG/ML SDV IM ONE (23:40)
== END 2022-08-16 00:02 | disposition home or self-care (01) ==
LOC: DL.ED 23:14
DX: G43.909 Migraine, unspecified, not intractable, without status migrainosus (principal); K21.9 Gastro-esophageal reflux disease without esophagitis; E66.9 Obesity, unspecified; Z68.41 Body mass index [BMI] 40.0-44.9, adult; Z86.16 Personal history of COVID-19; Z88.5 Allergy status to narcotic agent; Z88.8 Allergy status to other drugs, medicaments and biological substances
CPT/HCPCS: 96372; 99283; J0595; J2550

== ENCOUNTER 2022-09-13 19:42 | Emergency (ER) | payer MEDICAID ==
[2022-09-13 20:13] VITALS: BP 149/83; PULSE 95
[2022-09-13] MEDS ORDERED: Sodium Chloride 0.9% 10 ML Syringe FLUSH PRN ×2 (20:15→20:17)
[2022-09-13] MEDS ORDERED: Sodium Chloride 0.9% 1,000 ML IV ONE (20:15)
[2022-09-13] MEDS ORDERED: HYDROmorphone 1 MG/ML Syringe IVPUSH ONE (20:17)
[2022-09-13] MEDS ORDERED: Ondansetron 4 MG/2 ML SDV IVPUSH ONE (20:17)
[2022-09-13 20:39] LABS: BASOPHILS PERCENT AUTO 0.4 % (0.0-1.0); EOSINOPHILS PERCENT AUTO 1.5 % (1.0-3.0); HEMOGLOBIN 14.8 g/dL (12.0-16.0); LYMPHOCYTES PERCENT AUTO 39.6 % (20.5-50.1); MEAN CORPUSCULAR HEMOGLOBIN 30.9 pg (27.0-34.0); MEAN CORPUSCULAR HGB CONC 33.6 g/dL (33.0-35.0); MEAN CORPUSCULAR VOLUME 91.9 fL (80-100); MONOCYTES PERCENT AUTO 6.7 % (2-8); NEUTROPHILS PERCENT AUTO 51.8 % (42.2-75.2); PLATELET COUNT,PLT 333 10^3/uL (150-450); RED BLOOD CELL COUNT 4.79 10^6/uL (4.2-5.4); WHITE BLOOD CELL COUNT,WBC 13.6 10^3/uL (5.0-10.0)
[2022-09-13 20:55] LABS: A/G RATIO 1.1; ALBUMIN 3.6 g/dL (3.4-5.0); ANION GAP 12.8 mEq/L (7-13); BILIRUBIN TOTAL 0.3 mg/dL (0.2-1.0); CALCIUM 8.4 mg/dL (8.5-10.1); CREATININE 0.86 mg/dL (0.55-1.02); EST CRCL DRUG DOSING (CG) 77.69 mL/min; POTASSIUM,K 3.8 mmol/L (3.5-5.1); PROTEIN TOTAL,TP 6.9 g/dL (6.4-8.2)
[2022-09-13] MEDS ORDERED: Iopamidol 612 MG/ML 100 ML Bottle IVPUSH ONE (21:16)
[2022-09-13 23:07] LABS: APPEARANCE,URINE CLEAR (CLEAR); BILIRUBIN,URINE NEGATIVE (NEGATIVE); COLOR,URINE YELLOW (YELLOW); GLUCOSE,URINE NEGATIVE (NEGATIVE); KETONES,URINE NEGATIVE (NEGATIVE); LEUKOCYTE ESTERASE,URINE NEGATIVE (NEGATIVE); NITRITE,URINE NEGATIVE (NEGATIVE); OCCULT BLOOD,URINE NEGATIVE (NEGATIVE); PROTEIN,URINE NEGATIVE (NEGATIVE); UROBILINOGEN,URINE 0.2 mg/dL (0.2-1.0)
== END 2022-09-13 23:38 | disposition home or self-care (01) ==
LOC: DL.ED 19:42
DX: R10.31 Right lower quadrant pain (principal); E66.9 Obesity, unspecified; Z68.39 Body mass index [BMI] 39.0-39.9, adult; Z86.16 Personal history of COVID-19; Z88.5 Allergy status to narcotic agent; Z88.4 Allergy status to anesthetic agent; Z88.8 Allergy status to other drugs, medicaments and biological substances; Z79.899 Other long term (current) drug therapy
CPT/HCPCS: 36415; 74177; 80053; 81003; 85025; 96361; 96374; 96375; 99284; J1170; J2405; J7030; Q9967; J3490

== ENCOUNTER 2022-10-09 21:24 | Emergency (ER) | payer MEDICAID ==
[2022-10-09] MEDS ORDERED: Sodium Chloride 0.9% 10 ML Syringe FLUSH PRN (21:34)
[2022-10-09] MEDS ORDERED: Sodium Chloride 0.9% 1,000 ML IV ONE (21:34)
[2022-10-09] MEDS ORDERED: Butorphanol 2 MG/ML SDV IVPUSH ONE (21:42)
[2022-10-09] MEDS ORDERED: Promethazine 25 MG/ML SDV IM ONE (21:42)
[2022-10-09 21:44] VITALS: BP 148/102; PULSE 67
== END 2022-10-09 22:48 | disposition home or self-care (01) ==
LOC: DL.ED 21:24
DX: G43.909 Migraine, unspecified, not intractable, without status migrainosus (principal); K21.9 Gastro-esophageal reflux disease without esophagitis; E66.9 Obesity, unspecified; Z68.39 Body mass index [BMI] 39.0-39.9, adult; Z86.16 Personal history of COVID-19; Z88.5 Allergy status to narcotic agent; Z88.8 Allergy status to other drugs, medicaments and biological substances
CPT/HCPCS: 96372; 96374; 99282; 99283; J0595; J2550; J7030; J3490

== ENCOUNTER 2022-10-14 20:51 | Emergency (ER) | payer MEDICAID ==
[2022-10-14 21:24] VITALS: BP 133/93; PULSE 87
[2022-10-14] MEDS ORDERED: Sodium Chloride 0.9% 10 ML Syringe FLUSH PRN (21:36)
[2022-10-14] MEDS ORDERED: Ketorolac 30 MG/ML SDV IVPUSH ONE (21:37)
[2022-10-14] MEDS ORDERED: diphenhydrAMINE 50 MG/ML SDV IVPUSH ONE (21:38)
[2022-10-14] MEDS ORDERED: Sodium Chloride 0.9% 1,000 ML IV ONE (21:38)
[2022-10-14] MEDS ORDERED: Metoclopramide 10 MG/2 ML SDV IVPUSH ONE (21:38)
[2022-10-14] MEDS ORDERED: Iopamidol 755 Mg/ML 100 ML Bottle IVPUSH ONE (21:42)
[2022-10-14 21:53] LABS: BASOPHILS PERCENT AUTO 0.3 % (0.0-1.0); EOSINOPHILS PERCENT AUTO 1.4 % (1.0-3.0); HEMATOCRIT 42.9 % (37.0-47.0); HEMOGLOBIN 14.7 g/dL (12.0-16.0); LYMPHOCYTES PERCENT AUTO 41.4 % (20.5-50.1); MEAN CORPUSCULAR HEMOGLOBIN 31.1 pg (27.0-34.0); MEAN CORPUSCULAR HGB CONC 34.3 g/dL (33.0-35.0); MEAN CORPUSCULAR VOLUME 90.9 fL (80-100); MONOCYTES PERCENT AUTO 8.2 % (2-8); NEUTROPHILS PERCENT AUTO 48.7 % (42.2-75.2); PLATELET COUNT,PLT 336 10^3/uL (150-450); RED BLOOD CELL COUNT 4.72 10^6/uL (4.2-5.4); WHITE BLOOD CELL COUNT,WBC 14.4 10^3/uL (5.0-10.0)
[2022-10-14 22:07] LABS: LACTIC ACID 0.9 mmol/L (0.4-2.0)
[2022-10-14 22:12] LABS: A/G RATIO 1.1; ALANINE AMINOTRANSFERASE,ALT 22 U/L (14-59); ALBUMIN 3.5 g/dL (3.4-5.0); ALKALINE PHOSPHATASE 97 U/L (46-116); ANION GAP 13.7 mEq/L (7-13); ASPARTATE AMNIOTRANSFERASE,AST 14 U/L (15-37); BILIRUBIN TOTAL 0.2 mg/dL (0.2-1.0); BLOOD UREA NITROGEN,BUN 8 mg/dL (7-18); BUN/CREATININE RATIO 10.7 (No establ ref range); CALCIUM 8.8 mg/dL (8.5-10.1); CARBON DIOXIDE,CO2 25 mmol/L (21-32); CHLORIDE,CL 105 mmol/L (98-107); CREATININE 0.75 mg/dL (0.55-1.02); EST CRCL DRUG DOSING (CG) 89.08 mL/min; GLUCOSE RANDOM 106 mg/dL (70-99); MAGNESIUM 2.1 mg/dL (1.8-2.4); POTASSIUM,K 3.7 mmol/L (3.5-5.1); PROTEIN TOTAL,TP 6.8 g/dL (6.4-8.2); SODIUM,NA 140 mmol/L (136-145); TSH ULTRASENSITIVE 1.47 uIU/mL (0.36-3.74)
[2022-10-14 22:13] LABS: C-REACTIVE PROTEIN < 0.2 mg/dL (0.0-0.9); ESTIMATED GFR 108 mL/min (>=60)
[2022-10-14 23:21] LABS: APPEARANCE,URINE CLEAR (CLEAR); BILIRUBIN,URINE NEGATIVE (NEGATIVE); COLOR,URINE YELLOW (YELLOW); GLUCOSE,URINE NEGATIVE (NEGATIVE); KETONES,URINE NEGATIVE (NEGATIVE); LEUKOCYTE ESTERASE,URINE NEGATIVE (NEGATIVE); NITRITE,URINE NEGATIVE (NEGATIVE); OCCULT BLOOD,URINE NEGATIVE (NEGATIVE); PH,URINE 7.5 (5.0-9.0); PROTEIN,URINE NEGATIVE (NEGATIVE); UROBILINOGEN,URINE 0.2 mg/dL (0.2-1.0)
[2022-10-14 23:22] LABS: AMPHETAMINES,URINE NEGATIVE (NEGATIVE); BARBITURATES,URINE NEGATIVE (NEGATIVE); BENZODIAZEPINE,URINE NEGATIVE (NEGATIVE); MDMA (ECSTASY), URINE NEGATIVE (NEGATIVE); METHADONE,URINE NEGATIVE (NEGATIVE); METHAMPHETAMINES,URINE NEGATIVE (NEGATIVE); OPIATES,URINE NEGATIVE (NEGATIVE); OXYCODONE,URINE NEGATIVE (NEGATIVE); PHENCYCLIDINE,URINE NEGATIVE (NEGATIVE); TCA,URINE NEGATIVE (NEGATIVE)
[2022-10-14] MEDS ORDERED: Promethazine 25 MG/ML SDV IM ONE (23:27)
[2022-10-15] MEDS ORDERED: Verapamil 240 MG Tab.ER PO ONE (00:26)
[2022-10-15] MEDS ORDERED: Verapamil 240 MG Tab.ER ONE (00:34)
== END 2022-10-15 00:47 | disposition home or self-care (01) ==
LOC: DL.ED 20:51
DX: G43.909 Migraine, unspecified, not intractable, without status migrainosus (principal); F17.210 Nicotine dependence, cigarettes, uncomplicated; E66.9 Obesity, unspecified; Z68.39 Body mass index [BMI] 39.0-39.9, adult; Z86.16 Personal history of COVID-19; Z88.5 Allergy status to narcotic agent; Z88.6 Allergy status to analgesic agent; Z88.8 Allergy status to other drugs, medicaments and biological substances
CPT/HCPCS: 36415; 70450; 70496; 70498; 80053; 80305; 81003; 83605; 83735; 84443; 85025; 86140; 96361; 96372; 96374; 96375; 99284; A9270; J1200; J2550; J2765; J7030; Q9967; J3490

== ENCOUNTER 2022-10-22 22:42 | Emergency (ER) | payer MEDICAID ==
[2022-10-22 23:46] VITALS: BP 125/73
[2022-10-22 23:47] VITALS: PULSE 72
== END 2022-10-23 00:04 | disposition left against medical advice (07) ==
LOC: DL.ED 22:42
DX: G43.519 Persistent migraine aura without cerebral infarction, intractable, without status migrainosus (principal); E66.9 Obesity, unspecified; Z86.16 Personal history of COVID-19; Z79.899 Other long term (current) drug therapy; Z88.5 Allergy status to narcotic agent; Z88.8 Allergy status to other drugs, medicaments and biological substances
CPT/HCPCS: 99282; 99283

== ENCOUNTER 2022-11-01 21:37 | Emergency (ER) | payer MEDICAID | END 2022-11-01 22:39 | disposition left against medical advice (07) | LOC: DL.ED 21:37 | DX: Z53.21 Procedure and treatment not carried out due to patient leaving prior to being seen by health care provider (principal) ==

== ENCOUNTER 2022-11-25 22:44 | Emergency (ER) | payer SELFPAY | END 2022-11-26 00:33 | disposition left against medical advice (07) | LOC: DL.ED 22:44 | DX: Z53.21 Procedure and treatment not carried out due to patient leaving prior to being seen by health care provider (principal) ==

== ENCOUNTER 2022-11-29 22:01 | Emergency (ER) | payer SELFPAY ==
[2022-11-29] MEDS ORDERED: Lactated Ringers 1,000 ML IV ONE (23:43)
[2022-11-29] MEDS ORDERED: Acetaminophen 500 MG Tab PO ONE (23:44)
[2022-11-29] MEDS ORDERED: Ondansetron 4 MG/2 ML SDV IVPUSH ONE (23:46)
[2022-11-29] MEDS ORDERED: diphenhydrAMINE 50 MG/ML SDV IVPUSH ONE (23:46)
[2022-11-30 00:35] VITALS: BP 139/93; PULSE 67
== END 2022-11-30 00:42 | disposition home or self-care (01) ==
LOC: DL.ED 22:01
DX: G43.011 Migraine without aura, intractable, with status migrainosus (principal); F17.210 Nicotine dependence, cigarettes, uncomplicated; Z88.4 Allergy status to anesthetic agent; Z88.5 Allergy status to narcotic agent; Z88.6 Allergy status to analgesic agent; Z88.8 Allergy status to other drugs, medicaments and biological substances; Z79.899 Other long term (current) drug therapy
CPT/HCPCS: 96374; 96375; 99283; A9270; J1200; J2405; J7120

== ENCOUNTER 2023-01-25 20:32 | Emergency (ER) | payer MEDICAID ==
[2023-01-25] MEDS ORDERED: Lactated Ringers 1,000 ML IV ONE (20:48)
[2023-01-25] MEDS ORDERED: Sodium Chloride 0.9% 10 ML Syringe FLUSH PRN (20:48)
[2023-01-25] MEDS ORDERED: Ondansetron 4 MG/2 ML SDV IVPUSH ONE (20:48)
[2023-01-25] MEDS ORDERED: diphenhydrAMINE 50 MG/ML SDV IVPUSH ONE (20:48)
[2023-01-25] MEDS ORDERED: Acetaminophen 500 MG Tab PO ONE (20:49)
[2023-01-25 20:53] VITALS: BP 137/93; PULSE 72
== END 2023-01-25 21:59 | disposition home or self-care (01) ==
LOC: DL.ED 20:32
DX: G43.909 Migraine, unspecified, not intractable, without status migrainosus (principal); R03.0 Elevated blood-pressure reading, without diagnosis of hypertension; E66.9 Obesity, unspecified; Z86.16 Personal history of COVID-19; Z79.899 Other long term (current) drug therapy; Z90.710 Acquired absence of both cervix and uterus; Z90.49 Acquired absence of other specified parts of digestive tract; Z88.8 Allergy status to other drugs, medicaments and biological substances; Z68.39 Body mass index [BMI] 39.0-39.9, adult
CPT/HCPCS: 96374; 96375; 99283; A9270; J1200; J2405; J7120; J3490

== ENCOUNTER 2023-05-13 15:40 | Emergency (ER) | payer MEDICAID ==
[2023-05-13 16:36] LABS: CORONAVIRUS COVID-19 NAA NEGATIVE (NEGATIVE); INFLUENZA A NAA POSITIVE (NEGATIVE); INFLUENZA B NAA NEGATIVE (NEGATIVE); RESPIRATORY SYNCYTIAL VIR NAA NEGATIVE (NEGATIVE)
[2023-05-13 17:33] VITALS: BP 149/81; PULSE 66
== END 2023-05-13 16:50 | disposition home or self-care (01) ==
LOC: DL.ED 15:40
DX: J10.1 Influenza due to other identified influenza virus with other respiratory manifestations (principal); E66.9 Obesity, unspecified; Z68.38 Body mass index [BMI] 38.0-38.9, adult; Z86.16 Personal history of COVID-19; Z79.899 Other long term (current) drug therapy; Z90.710 Acquired absence of both cervix and uterus; Z90.49 Acquired absence of other specified parts of digestive tract; Z88.5 Allergy status to narcotic agent; Z88.8 Allergy status to other drugs, medicaments and biological substances
CPT/HCPCS: 0241U; 87081; 87430; 99283

== ENCOUNTER 2023-09-01 23:51 | Emergency (ER) | payer MEDICAID ==
[2023-09-02 00:09] VITALS: BP 142/86; PULSE 90
[2023-09-02] MEDS: Take Home: Doxycycline 100 MG Cap, 4 Cap Pack PO ONE (00:19)
[2023-09-02] MEDS: Take Home: Cephalexin 500 MG Cap, 6 Cap Pack PO ONE (00:19)
[2023-09-02] MEDS: Cephalexin 500 MG Cap PO ONE (00:27)
[2023-09-02] MEDS: Doxycycline Monohydrate 100 MG Cap PO ONE (00:27)
== END 2023-09-02 00:30 | disposition home or self-care (01) ==
LOC: DL.ED 23:51
DX: L03.312 Cellulitis of back [any part except buttock and flank] (principal); E66.9 Obesity, unspecified; Z86.16 Personal history of COVID-19; Z79.899 Other long term (current) drug therapy; Z88.5 Allergy status to narcotic agent; Z88.8 Allergy status to other drugs, medicaments and biological substances
CPT/HCPCS: 99283; A9270